=== PATIENT | male | born 1970 | race Caucasian/White ===

== ENCOUNTER 2024-12-11 07:32 | Inpatient (IN) | payer OTHER, SELFPAY ==
--- OUTSIDE RECORDS SUMMARY | 2024-12-09 17:40 | XMS_ITS | Encounter Summary ---
Author Organization [facility] Address [address] [place] [address] [place] [phone] Phone Care Team Providers Care Customer Service Driver Name Role Phone Tr Shah MD Primary Care Provider [phone] Reason for Visit * Reason Comments Abdominal Pain Pt presents for eval of bladder discomfort at night while laying down and reports cloudy urine during this time, denies daytime symptoms, reports hx of diverticulitis and thinks pain may be related. Dysuria TW notes patient to have nonchalant demeanor and to be nondescript in reporting current symptoms and history. Pt asked TW if provider would just give an antibiotic for this, TW advised pt that he would need to give urine sample for testing and to speak more with the provider before the course of treatment could be determined. Encounter Details Date Type Department Care Team (Late st Contact Info) Description 12/09/2024 5:40 PM EDT Office Visit [facility] at [address] [address] Bri Baires, GRADUATION COACH [address] [place] [phone] Dysuria (Primary Dx) Social History Tobacco Use Types Packs/Day Years Used Date Smoking Tobacco: Former Cigarettes Q uit: 1996 Smokeless Tobacco: Never Alcohol Use Standard Drinks/Week Comments Yes 10 (1 standard drink = 0.6 oz pu re alcohol) 1-2 drinks of tequila per day Education Answer Date Recorded Are you interested in more education? Not on aster e 08/10/2022 Are you concerned about learning? Not on file 08/10/2022 No 08/10/2022 No 08/10/2022 Digital Access Answer Date Recorded No 09/08/2022 No 09/08/2022 Reliable internet access at home? Not on file 09/08/2022 Device with a working camera? 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 Subjective: Patient ID: Jasen Calhoun is a 54 y.o. male. 54-year-old male patient presents with bilateral lower abdominal discomfort for the last 4 days that he notes only in the evening when lying flat. Patient states if he gets up at night to void his urine is very cloudy, dark and has a strong odor. Patient also notes in the evening there is some dysuria. He notes when he is voiding during the day, there is no dysuria and urine is a normal yellow color.. Patient denies any back pain or nauseousness or vomiting. No history of renal calculi. No history of colitis. Patient does have history of diverticulitis first episode approximately 10 years agotreated with outpatient antibiotics, second episode in 2021 when patient had abscess and required IV antibiotics. At that time patient also stated he was told there was a fistula but the surgeon did not want to operate because they were worried about nerve damage. No history of abdominal surgeries.patient states for the last 4 nights he has been awakening with a sweat but denies any fever or chills. Patient denies any dizziness or syncope. Review of Systems Constitutional: Positive for diaphoresis. Negative for appetite change, chills, fatigue and fever. Respiratory: Negative for cough and shortness of breath. Cardiovascular: Negative for chest pain. Gastrointestinal: Positive for abdominal pain. Negative for blood in stool, constipation, heartburn, nausea and vomiting. Genitourinary: Positive for dysuria (at night) and nocturia (cloudy). Negative for discharge, frequency, blood in urine, penile pain, scrotal swelling and testicular pain. Allergic/Immunologic: Negative for immunocompromised state. Neurological: Negative for dizziness and syncope. Psychiatric/Behavioral: Negative for confusion and decreased concentration. Skin: Negative for persistent rash. Musculoskeletal: Negative for back pain. Vitals: 12/09/24 1743 BP: 138/89 Pulse: 80 Resp: 16 Temp: 36.4 ??C (97.6 ??F) TempSrc: Temporal SpO2: 98% Objective: Physical Exam Vitals and nursing note reviewed. Constitutional: General: He is not in acute distress. Appearance: He is well-developed. He is obese. He is not ill-appearing, toxic- appearing or diaphoretic. HENT: Head: Normocephalic and atraumatic. Cardiovascular: Rate and Rhythm: Normal rate and regular rhythm. Heart sounds: Normal heart sounds. Pulmonary: Effort: Pulmonary effort is normal. No respiratory distress. Breath sounds: Normal breath sounds. No stridor. No wheezing, rhonchi or rales. Abdominal: Comments: Patient deferred After provider examined urine and spoke with patient and recommended emergent ER evaluation patientstated he needed to call his and did not want to stay in urgent care Skin: General: Skin is warm and dry. Neurological: General: No focal deficit present. Mental Status: He is alert and oriented to person, place, and time. Psychiatric: Mood and Affect: Mood normal. Behavior: Behavior normal. No results found for this visit on 12/09/24. Procedure: Procedures Assessment/Plan: Diagnosis Plan 1. 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 but surgeon would not operatebecause of fear of nerve damage Strongly encouraged patient to seek emergent follow-up care and patient strongly deferred stated heneeded to talk with his , provider offered to call and speak with her but patient adamantly deferred and refused Patient states he refuses to go to any local ER and will go to [facility] but he does not think he will go this evening unless his can convince him Spoke with patient regarding potential rapid change in status which could lead to pyelonephritis, sepsis -, colonic abscess, all of which can lead to complications up to permanent disability +/or . patient continues to defer physical evaluation and transfer. documented in this encounter Plan of Treatment Not on file documented as of this encounter Procedures Procedure Name Priority Date/Time Associated Diagnosis Comments URINE CULTURE Routine 12/09/2024 6:20 PM EDT Dysuria documented in this encounter Results * (ABNORMAL) Urine Culture (12/09/2024 6:20 PM EDT) Special Requests None 12/09/2024 6:20 PM EDT [facility] Urine Culture >100,000 colony forming units per mL ESCHERICHIA COLI(A) 12/11/2024 8:55 AM EDT [facility] Urine (Urine) 12/09/2024 6:2 0 PM EDT 12/09/2024 9:16 PM EDT Narrative Organism Antibiotic Method Susceptibility Escherichia coli Ampicillin LANDRY METHOD <=2: Susceptible Escherichia coli Ampicillin + Sulbactam LANDRY METHOD <=2: Susceptible Escherichia coli Cefepime LANDRY METHOD <=0.12: Susceptible Escherichia coli Ceftazidime LANDRY METHOD <=0.5: Susceptible Escherichia coli Ceftriaxone LANDRY METHOD <=0.25: Susceptible Escherichia coli Ciprofloxacin LANDRY METHOD 0.5: Intermediate Escherichia coli Extended Spectrum B-lactamase LANDRY MET HOD Negative Escherichia coli Gentamicin LANDRY METHOD <=1: Susceptible Escherichia coli Levofloxacin LANDRY METHOD 0.5: Susceptible Escherichia coli Piperacillin-tazobactam LANDRY METHOD <=4: Susceptible Escherichia coli Trimethoprim/sulfamethoxazole LANDRY MET HOD <=20: Susceptible Escherichia coli Cefazolin(urine) LANDRY METHOD <=1: Susceptible Comment: Bri Baires [facility] MICROBIOLOGY - GENERAL JESSY OSEGUERA Final Result [address] [address] documented in this encounter Visit Diagnoses Diagnosis Dysuria- Primary documented in this encounter Care Teams Customer Service Driver Relationship Specialty Start Date End Date Tr Shah MD [address] [place] [phone] [email or web address] PCP - General Family Medicine 12/09/24 documented as of this encounter Additional Source Comments The information contained in this document represents components of the legal health record. It is not the complete legal health record.[facility]
[2024-12-11] VITALS (9 sets, daily range): BP systolic 101–129; BP diastolic 55–86; PULSE 54–80; RESP 14–18; TEMP 36–36.9; O2SAT 95–99; BMI 28.2; BMI 26.0
--- NOTE | ~2024-12-11 | CT_ITS ---
PROCEDURE: CT-GUIDED DRAINAGE, PERITONEAL ABSCESS CLINICAL INFORMATION: pt with diverticular abscess COMPARISON: None available. TECHNIQUE: Following explaining procedure, benefits and risk, a written consent was obtained for procedure and conscious sedation. Patient was placed supine and preliminary CT imaging was obtained. Lead markers were placed along the lower anterior wall and repeat imaging was performed. An optimal marker was selected and placed on the skin. Marked site was cleaned and draped in usual sterile manner with 2% chlorhexidine solution. 1% lidocaine with a disc puncture site. There is a small 5 [place] Yueh catheter was advanced from the skin but seems to be a complex mass/abscess in the lower anterior abdominal wall. After placing Yueh catheter a thin guidewire was advanced and the catheter removed and a 10 [place] APD catheter was left in place. Apparently the bladder appears is a complex mass with fluid collection likely fistulous connection to the abscess simulating bladder abscess or mass. The pigtail catheter was left in place and anchored to the skin with 3-0 nylon sutures. Patient targeted procedure extremely well. This CT examination was performed using dose optimization techniques as appropriate, variously including the following: *Automated exposure control *Adjustment of mA and/or kV according to patient size (this includes techniques or standardized protocols for targeted exams where dose is matched to indication/reason for exam; i.e. extremities or head) *Use of iterative reconstruction technique FINDINGS/ CT/CT drain peritoneum impression: On urinary CT imaging there is a small abscess collection on axial image 24/4 and a complex area inferior to the abscess, question second abscess versus complex mass or infection . A catheter was left in place in the second complex collection what appeared to be an abscess may be a complex bladder. Initial drainage revealed hemorrhagic fluid likely hemorrhagic urine. Electronically signed by: Chip Hopkins MD 12/15/2024 03:45 PM EDT
--- NOTE | ~2024-12-11 | CT_ITS ---
EXAMINATION: CT ABDOMEN PELVIS WITH IV CONTRAST HISTORY: hx of perf. divertic, rectovesical fistula? COMPARISON: There are no prior studies for available comparison. TECHNIQUE: CT scan of the abdomen and pelvis was performed following administration of 85 mL Omnipaque 350 using standard departmental protocol. Coronal and sagittal reformatted images were generated and reviewed. The patient received oral contrast material. This CT exam was performed with one or more of the following dose reduction techniques: automated exposure control, adjustment of the mA and/or kV according to patient size, use of iterative reconstruction technique. DLP: 79 mGy-cm FINDINGS: LOWER CHEST: The visualized lung bases are clear. There is no pleural effusion. CARDIOVASCULATURE: The heart is normal in size. There is no pericardial effusion. LIVER: The liver is normal in size and contour. There is a subcentimeter hypodensity at the dome of the liver which is too small to accurately characterize. The hepatic and portal veins are patent. GALLBLADDER / BILE DUCTS: The gallbladder is unremarkable. There is no intra or extrahepatic biliary ductal dilatation. SPLEEN: The spleen is normal in size. No focal splenic lesion is identified. PANCREAS: The pancreas is unremarkable in appearance. ADRENAL GLANDS: Within normal limits. KIDNEYS/RETROPERITONEUM: No renal calculi are identified. There is no hydronephrosis. No renal masses are identified. LYMPH NODES: No abdominal or pelvic lymphadenopathy. VASCULATURE: The abdominal aorta is normal in caliber. MESENTERY/PERITONEUM: No free fluid. No masses. There is no free intraperitoneal gas. STOMACH: The stomach is unremarkable. SMALL BOWEL: The small bowel is normal in caliber. COLON: There is diverticulosis of the descending and sigmoid colon. There is marked wall thickening of the sigmoid colon which is contiguous with a collection of gas and fluid extending toward the umbilicus. This measures 4.0 x 3.5 x 5.8 cm, consistent with an abscess. APPENDIX: Normal. URINARY BLADDER/PELVIC ORGANS: There is marked irregular wall thickening of the urinary bladder which also contains gas and high density material dependently, consistent with oral contrast. These findings are consistent with a fistula. The prostate is normal in size. BONES / SOFT TISSUES: No suspicious bony or soft tissue abnormalities. CT/CT abdomen pelvis w IV con IMPRESSION: 1. Marked wall thickening of the sigmoid colon and the urinary bladder. 4.0 x 3.5 x 5.8 cm abscess between the dome of the bladder and the sigmoid colon. While findings may be secondary to diverticulitis, neoplasm involving the urinary bladder or the colon is not excluded. 2. The urinary bladder contains gas and high density material, consistent with oral contrast material. 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 Electronically signed by: Fredy Chávez MD 12/11/2024 12:22 PM EDT
[2024-12-11 07:59] LABS: MANUAL DIFF FLAG NO
--- NOTE | 2024-12-11 08:00 | PC.NURSE ---
Patient is a 54 yo male who presents from a local UC after providing a urine spec and being informed to be seen at a local ED. 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 Also c/o some urinary symptoms. Patient alert and oriented. Lungs clear bilat. Respirations even and non-labored. Abdomen soft with positive bowel sounds. c/o suprapubic pain. Positive pedal pulses with no edema. Last time evaluated for similar complaints was in 2021.
[2024-12-11 08:04] LABS: Hematocrit 42.1 % (42.0-52.0); Hemoglobin 15.0 g/dl (14.0-18.0); Imm Gran Abs Auto 0.03 X10*3/uL (0.00-0.03); Imm Gran Pct Auto 0.3 % (0.0-0.4); Lymphocytes Absolute Auto 1.6 X10*3/uL (1.2-4.9); Mean Corpuscular HGB Conc 35.6 g/dl (31.0-36.0); Mean Corpuscular Hemoglobin 32.8 pg (27.0-33.0); Mean Corpuscular Volume 91.9 fL (80.0-98.0); NRBC Abs Auto 0.000 X10*3/uL (0.0-0.012); NRBC Pct Auto 0.0 /100WBC (0.0-0.2); Platelet Count 431 X10*3/uL (160-400); Red Blood Count 4.58 X10*6/uL (4.60-5.80); White Blood Count 8.7 X10*3/uL (4.8-10.8)
--- NOTE | 2024-12-11 08:11 | ED_ITS ---
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 Urgent care told patient in the morning to come into the ER when he went there. Related Data Allergies Allergy/AdvReac Type Severity Reaction Status Date / Time No Known Allergies Allergy Verified 12/11/24 07:40 Review of Systems Constitutional: Reports as per [facility] Social History Social History Smoked in Last 30 Days: No Use of substances other than those prescribed or required for medical reasons: No Advance Directives: Yes Advance Directives Information Provided: Yes Advance Directives on File: No Physical Exam ED Vital Signs: Vital Signs - 24 hr 12/11/24 07:35 12/11/24 07:42 12/11/24 08:31 Temperature 97.9 F 97.7 F Pulse Rate 80 77 59 Respiratory Rate 16 18 18 Blood Pressure 128/76 129/86 107/64 Pulse Oximetry 97 95 95 Oxygen Delivery Method Room Air Room Air Room Air 12/11/24 10:15 12/11/24 12:00 Temperature Pulse Rate 56 62 Respiratory Rate 16 16 Blood Pressure 114/55 L 124/79 Pulse Oximetry 98 98 Oxygen Delivery Method Room Air Room Air BMI result Body Mass Index 28.2 Const Other: * Gen: ?Overall well-appearing patient * HEENT: PERRLA, EOMI, MMM, * Neck: Supple, no LAD * CV: RRR, no obvious murmurs appreciated * Resp: ?No wheezing rales rhonchi no stridor moving air well * Abd: ?Bowel sounds are present, left lower quadrant and suprapubic tenderness no rebound no rigidity * MSK: FROM, strength 5/5 all extremities * Skin: Warm, dry, intact, * Neuro: ?Alert and oriented x3, moving upper and lower extremities symmetrically, no obvious facial asymmetry noted Medical Decision Making Medical Decision Making MDM Narrative: Considerations for workup as below, we will need imaging, we will add on oral contrast for further elucidation, may need to be admitted and surgical consult anticipated as well. But this is going to be based on his workup. Differential Diagnosis Differential Diagnoses: The differential diagnosis associated with the presentation includes (Diverticulitis, diverticulitis with perforation, rectal vesicular fistula, appendicitis, cystitis, renal colic, pyelonephritis) Admission/Observation Consideration of admission/observation: Escalation of care including admission/observation considered 2022 Emergency Medicine Coding Guide from [employer] on 12/11/2024 All calculations should be rechecked by clinician prior to use RESULT SUMMARY: 5 Estimated Level of Service Problems: High (5) Risk: High (5) Data: Moderate (4) NARRATIVE MDM: This patient's problem complexity is High as patient: may have an acute or chronic illness/injury posing a threat to life or body function. This patient's risk is High due to: overall presentation requiring evaluation for a potentially High-risk process. This patient's data complexity is Moderate due to: -multiple tests ordered INPUTS: Number and Complexity ?> 2 = 5: illness/injury w/life or body threat (b) Risk level ?> 4 = High Tests ordered ?> 2 = 2 Tests results reviewed (excluding labs) ?> 1 = 1 Prior external notes reviewed ?> 0 = 0 Assessment requiring and independent historian ?> 0 = No Independent interpretation of tests ?> 0 = No Discussed management/test interpretation w/external professional ?> 0 = No Lab Data [facility] Lab Attestation statement: I reviewed the patient's lab results. 12/11/24 07:55 12/11/24 07:55 Labs: Lab Results 12/11/24 12/11/24 Range/Units 07:55 09:16 WBC 8.7 (4.8-10.8) X10*3/uL RBC 4.58 L (4.60-5.80) X10*6/uL Hgb 15.0 (14.0-18.0) g/dl Hct 42.1 (42.0-52.0) % MCV 91.9 (80.0-98.0) fL MCH 32.8 (27.0-33.0) pg MCHC 35.6 (31.0-36.0) g/dl RDW 12.2 (11.0-16.0) % Plt Count 431 H (160-400) X10*3/uL MPV 10.0 (9.4-12.4) fL Immature Gran % (Auto) 0.3 (0.0-0.4) % Neut % (Auto) 72.3 (45-73) % Lymph % (Auto) 18.7 L (20-40) % Nelson % (Auto) 7.3 (2-11) % Eos % (Auto) 0.9 (0-4) % Baso % (Auto) 0.5 (0-2) % Lymph # (Auto) 1.6 (1.2-4.9) X10*3/uL Nelson # (Auto) 0.6 (0.1-1.2) X10*3/uL Eos # (Auto) 0.1 (0.0-0.4) X10*3/uL Baso # (Auto) 0.0 (0.0-0.2) X10*3/uL Abs Immat Gran (auto) 0.03 (0.00-0.03) X10*3/uL Absolute Neuts (auto) 6.3 (2.0-8.3) x10*3/uL Absolute Nucleated RBC 0.000 (0.0-0.012) X10*3/uL Nucleated RBC % (auto) 0.0 (0.0-0.2) /100WBC Sodium 139 (135-145) mmol/L Potassium 3.9 (3.3-5.1) mmol/L Chloride 104 (96-108) mmol/L Carbon Dioxide 21 L (22-29) mmol/L Anion Gap 18 (12-20) BUN 16 (9-16) mg/dL Creatinine 0.87 (0.5-1.4) mg/dL Estim Creat Clear Calc 129.5 Estimated GFR > 60 Random Glucose 96 (60-115) mg/dL Calcium 10.1 (8.4-10.2) mg/dL Total Bilirubin 0.6 (0.0-1.0) mg/dL AST 26 (5-37) U/L ALT 22 (0-40) U/L Alkaline Phosphatase 70 (39-117) U/L Total Protein 8.0 (6.5-8.0) g/dL Albumin 4.1 (3.5-5.0) g/dL Urine Color DK YELLOW Urine Appearance Turbid Urine pH 7.0 (5.0-9.0) Ur Specific [place] 1.025 (1.005-1.025) Urine Protein 300 (3+) H (Neg-Trace) mg/dL Urine Glucose (UA) 100 H (Negative) mg/dL Urine Ketones 40 (Negative) mg/dL Urine Blood Moderate (2+) H (Negative) Urine Nitrite Positive H (Negative) Ur Leukocyte Esterase Large (3+) H (Negative) Urine RBC 6-10 H (0-2) /HPF Urine WBC >50 H (0-5) /HPF Urine WBC Clumps Present Ur Squamous Epith Cells 0-2 (0-2) /HPF Calcium Oxalate Crystal Present Urine Bacteria 4+ (None Seen) Hyaline Casts 0-2 (0-2) /LPF Prescription Management I considered prescription management with: Pain Medication Medications Administered Discontinued Medications Generic Name Dose Route Start Last Admin Trade Name Freq PRN Reason Stop Dose Admin Ceftriaxone Sodium 2 gm 12/11/24 10:35 12/11/24 10:42 Ceftriaxone Sodium 2 Gm Vial IVPUSH 12/11/24 10:36 2 gm ONCE ONE Administration Diatrizoate Meglum/Diatrizoate Sod 30 ml 12/11/24 12:01 12/11/24 12:01 Diatrizoate Meglumine, Sodium 30 Ml Solution PO 12/11/24 12:02 30 ml ONCE ONE Administration Sodium Chloride 1,000 mls @ 999 mls/hr 12/11/24 08:15 12/11/24 09:45 Ns IV 12/11/24 09:15 Infused .Q1H1M KAI Infusion Iohexol 100 ml 12/11/24 12:02 12/11/24 12:02 Iohexol 350 Mg/Ml 100 Ml Infus..Btl IV 12/11/24 12:03 85 ml ONCE ONE Administration Critical Care Time Critical Care Time Critical Care Time: Yes Total Critical Care Time: 35 Attestation: Time is exclusive of separately billable procedures. Time includes: direct patient care, patient reassessment, coordination of patient care, interpretation of data (laboratory data, pulse oximetry, arterial blood gases and chest xrays), review of patient's medical records, medical consultation and documentation of patient care. Procedures excluded from critical care time: central intravenous line placement and electrocardiography. Discharge Plan Discharge Clinical Impression: Diverticulitis large intestine Patient Disposition: Admitted As Inpatient Print Language: Thai
[2024-12-11 08:15] LABS: Alanine Aminotransferase 22 U/L (0-40); Albumin Level 4.1 g/dL (3.5-5.0); Alkaline Phosphatase 70 U/L (39-117); Anion Gap 18 (12-20); Aspartate Amino Transferase 26 U/L (5-37); Blood Urea Nitrogen 16 mg/dL (9-16); Calcium 10.1 mg/dL (8.4-10.2); Carbon Dioxide 21 mmol/L (22-29); Chloride 104 mmol/L (96-108); Creatinine Clr Calc Pharmacy 129.5; Estimated Glomerular Filt Rate > 60; Potassium 3.9 mmol/L (3.3-5.1); Sodium 139 mmol/L (135-145); Total Protein 8.0 g/dL (6.5-8.0)
--- OUTSIDE RECORDS SUMMARY | 2024-12-11 09:06 | XMS_ITS | Encounter Summary ---
Author Organization [facility] Address [address] [place] [phone] Phone Care Team Providers Care Crop Research Scientist Name Role Phone Tr Shah MD Primary Care Provider [phone] Tr Shah MD Primary Care Provider [phone] Encounter Details Date Type Department Care Team (Late st Contact Info) Description 07/29/2017 Procedure Pass [facility], Ct Scan - [address] [address] Social History Tobacco Use Types Packs/Day Years Used Date Smoking Tobacco: Never Assessed Sex and Gender Information Value Date Recorded Sex Assigned at Male 02/13/2022 8:24 AM EDT Legal Sex Male 9:37 PM EDT Gender Identity Male 02/13/2022 8:24 AM EDT Sexual Orientation Not on file documented as of this encounter Plan of Treatment Not on file documented as of this encounter Visit Diagnoses Not on filedocumented in this encounter Care Teams Crop Research Scientist Relationship Specialty Start Date End Date Tr Shah MD [email or web address] PCP - General Family Medicine 02/13/22 12/08/24 Tr Shah MD [address] [place] [phone] [email or web address] PCP - General Family Medicine 12/09/24 documented as of this encounter Additional Source Comments The information contained in this document represents components of the legal health record. It is not the complete legal health record.[facility]
--- OUTSIDE RECORDS SUMMARY | 2024-12-11 09:06 | XMS_ITS | Encounter Summary ---
Author Organization [facility] Address [address] [place] [address] [place] [phone] Phone Care Team Providers Care Patent Solicitor Name Role Phone Tr Shah MD Primary Care Provider [phone] Tr Shah MD Primary Care Provider [phone] Encounter Details Date Type Department Care Team (Late st Contact Info) Description 02/13/2022 Procedure Pass [facility], Ct Scan - [facility] [address] [place] [address] Social History Tobacco Use Types Packs/Day Years Used Date Smoking Tobacco: Former Cigarettes Q uit: 1996 Smokeless Tobacco: Never Alcohol Use Standard Drinks/Week Comments Yes 10 (1 standard drink = 0.6 oz pu re alcohol) 1-2 drinks of tequila per day Sex and Gender Information Value Date Recorded Sex Assigned at Male 02/13/2022 8:24 AM EDT Legal Sex Male 9:37 PM EDT Gender Identity Male 02/13/2022 8:24 AM EDT Sexual Orientation Not on file 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 Wish to be (Past 1 Month) No 022 8:23 AM EDT Macy Verduzco RN 2. Non-Specific Active Suici magda Thoughts (Past 1 Month) No 02/13/2022 8:23 AM EDT Landen Verduzco RN 6. Suicidal Behavior (Lifetime) No 8:23 AM EDT Macy Verduzco RN documented as of this encounter Plan of Treatment Not on file documented as of this encounter Visit Diagnoses Not on filedocumented in this encounter Care Teams Patent Solicitor Relationship Specialty Start Date End Date Tr Shah MD [email or web address] PCP - General Family Medicine 02/13/22 12/08/24 Tr Shah MD [address] [place] [phone] [email or web address] PCP - General Family Medicine 12/09/24 documented as of this encounter Additional Source Comments The information contained in this document represents components of the legal health record. It is not the complete legal health record.[facility]
--- OUTSIDE RECORDS SUMMARY | 2024-12-11 09:06 | XMS_ITS | Encounter Summary ---
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 Not on file documented as of this encounter Functional Status * Calculated C-SSRS Risk Score (Lifetime/Recent) Answer Date of Assessment Author No Risk Indicated 02/13/2022 8:23 AM EDT Macy Verduzco RN * [place] Suicide Severity Rating Scale (Screener/Recent Self-Report) Question [...] on filedocumented in this encounter Care Teams Machine Maintenance Relationship Specialty Start Date End Date Tr Shah MD [email or web address] PCP - General Family Medicine 02/13/22 12/08/24 Tr Shah MD [address] [place] [phone] [email or web address] PCP - General Family Medicine 12/09/24 documented as of this encounter Additional Source Comments The information contained in this document represents components of the legal health record. It is not the complete legal health record.[facility]
--- OUTSIDE RECORDS SUMMARY | 2024-12-11 09:07 | XMS_ITS | Encounter Summary ---
Author Organization [facility] Address [address] [place] [address] Phone Care Team Providers Care Scrap Burner Name Role Phone Tr Shah MD Primary Care Provider [phone] Tr Shah MD Primary Care Provider [phone] Encounter Details Date Type Department Care Team (Late st Contact Info) Description 07/29/2017 Ancillary Orders Virtual Department [address] [place] [address] Jasen Chavez MD [address] [place] [phone] [email or web address] Urinary tract infection without hematuria, site unspecified Social History Tobacco Use Types Packs/Day Years Used Date Smoking Tobacco: Never Assessed Sex and Gender Information Value Date Recorded Sex Assigned at Male 02/13/2022 8:24 AM EDT Legal Sex Male 9:37 PM EDT Gender Identity Male 02/13/2022 8:24 AM EDT Sexual Orientation Not on file documented as of this encounter Plan of Treatment Not on file documented as of this encounter Results * CT ABDOMEN/PELVIS WITH AND WITHOUT CONTRAST (07/31/2017 1:17 PM EDT) Anatomical Region Laterality Modality Abdomen, Pelvis Computed Tomogra phy 07/31/2017 1:19 PM EDT Impressions 07/31/2017 2:02 PM EDT Findings consistent with diverticular abscess between the sigmoid colon and upper left side of the bladder causing associated bladder thickening. Abscess measures up to 4.5 cm. Message regarding this study is sent to Dr. Chavez's service via the desktop support consultant on afternoon of dictation. TOTAL CTDIvol: 59.0 mGy POS - [id number] Edited by: Yazmin Jimenes on 07/31/2017 1:43 PM Narrative 07/31/2017 2:02 PM EDT HISTORY: Bacteriuria. UTI. Abnormal ultrasound. COMPARISON: Unenhanced CT June 14, 2010. TECHNIQUE: Water is used as an oral contrast agent. Pre-contrast views are obtained from the kidneys through the inferior pubic rami. Intravenous contrast is then administered and scanning obtained at ninety seconds from the dome of the liver to the iliac crests. Delayed scanning is then obtained from above the kidneys through the inferior pubic rami during excretory phase. Automated exposure control utilized. FINDINGS: Lung bases: No findings of concern. Liver and spleen: Too small to characterize hypodensity in the dome of the liver is likely a cyst on a statistical basis. No clearly worrisome masses. Spleen unremarkable. Biliary tree/pancreas: No findings of concern. Adrenals and : No adrenal or renal finding of concern. No evidence of stones. Renal enhancement and excretion are symmetric. Ureters have normal course and caliber. There is mass effect on the bladder from a pericolonic diverticular abscess. There is wall thickening in the bladder. It does not appear to have completely eroded into the bladder but that is a risk. No bladder stones or other masses. Bowel: Stomach unremarkable. No evidence of small bowel obstruction. Appendix unremarkable. Terminal ileum unremarkable. No evidence of colitis. Extensive colonic diverticulosis including a large fairly hyperdense diverticulum along the mesenteric side of the sigmoid. Along the inferior margin of the same loop of the sigmoid there is a fluid collection with a small amount of air within. It has a partially organized wall and appears to cause adjacent bladder wall thickening. It is present between the wall of the sigmoid colon and the bladder and as noted above has mass effect on the bladder. The collection measures approximately 4.5 x 3.4 x 3.3 cm. There is some adjacent induration in soft tissues but this may be a healing process. There is risk that this could erode into the bladder at this location. Nodes: No adenopathy detected. Vascular: No findings of concern. Soft tissues: Inflammatory changes in the left side of the pelvis and small abscess as above. No other fluid collections or inflammatory changes. No bowel-containing hernias. Bones: Mild degenerative changes in the spine. No compression deformity or bony destructive lesions are identified. Procedure Note Jeane Briscoe MD - 07/31/2017 HISTORY: Bacteriuria. UTI. Abnormal ultrasound. COMPARISON: Unenhanced CT June 14, 2010. TECHNIQUE: Water is used as an oral contrast agent. Pre-contrast viewsare obtained from the kidneys through the inferior pubic rami.Intravenous contrast is then administered and scanning obtained at ninetyseconds from the dome of the liver to the iliac crests. Delayed scanningis then obtained from above the kidneys through the inferior pubic ramiduring excretory phase. Automated exposure control utilized. FINDINGS: Lung bases: No findings of concern. Liver and spleen: Too small to characterize hypodensity in the dome of theliver is likely a cyst on a statistical basis. No clearly worrisomemasses. Spleen unremarkable. Biliary tree/pancreas: No findings of concern. Adrenals and : No adrenal or renal finding of concern. No evidence ofstones. Renal enhancement and excretion are symmetric. Ureters havenormal course and caliber. There is mass effect on the bladder from apericolonic diverticular abscess. There is wall thickening in thebladder. It does not appear to have completely eroded into the bladderbut that is a risk. No bladder stones or other masses. Bowel: Stomach unremarkable. No evidence of small bowel obstruction.Appendix unremarkable. Terminal ileum unremarkable. No evidence ofcolitis. Extensive colonic diverticulosis including a large fairlyhyperdense diverticulum along the mesenteric side of the sigmoid. Alongthe inferior margin of the same loop of the sigmoid there is a fluidcollection with a small amount of air within. It has a partiallyorganized wall and appears to cause adjacent bladder wall thickening. Itis present between the wall of the sigmoid colon and the bladder and asnoted above has mass effect on the bladder. The collection measuresapproximately 4.5 x 3.4 x 3.3 cm. There is some adjacent induration insoft tissues but this may be a healing process. There is risk that thiscould erode into the bladder at this location. Nodes: No adenopathy detected. Vascular: No findings of concern. Soft tissues: Inflammatory changes in the left side of the pelvis andsmall abscess as above. No other fluid collections or inflammatorychanges. No bowel-containing hernias. Bones: Mild degenerative changes in the spine. No compression deformityor bony destructive lesions are identified. IMPRESSION: Findings consistent with diverticular abscess between the sigmoid colonand upper left side of the bladder causing associated bladder thickening.Abscess measures up to 4.5 cm. Message regarding this study is sent toDr. Chavez's service via the desktop support consultant on afternoon of dictation. TOTAL CTDIvol: 59.0 mGy POS - [id number] Edited by: Yazmin Jimenes on 07/31/2017 1:43 PM Jasen Chavez MD IMG CT ABD/PELVIS Final Result documented in this encounter Visit Diagnoses Diagnosis Urinary tract infection without hematuria, site unspecified Urinary tract infection without hematuria, site unspecified documented in this encounter Care Teams Scrap Burner Relationship Specialty Start Date End Date Tr Shah MD [email or web address] PCP - General Family Medicine 02/13/22 12/08/24 Tr Shah MD [address] [place] [phone] [email or web address] PCP - General Family Medicine 12/09/24 documented as of this encounter Additional Source Comments The information contained in this document represents components of the legal health record. It is not the complete legal health record.[facility]
--- OUTSIDE RECORDS SUMMARY | 2024-12-11 09:07 | XMS_ITS | Clinical Summary ---
Author Organization [facility] Address [address] [place] [address] [place] [address] Phone Care Team Providers Care E Marketing Specialist Name Role Phone Tr Shah MD Primary Care Provider [phone] Allergies No known active allergies Medications lisinopril (PRINIVIL,ZEST RIL) 20 MG tablet Take 20 mg by mouth daily. 2 Active tadalafiL (CIALIS, ADCIRCA) 20 MG tablet TAKE 1/4 TO 1/2 BY MOUTH 1 HOUR PRIOR TO SEXUAL INTERCOURSE NEEDED 2 12/10/19 25 Discontin ued(No longer taking) Active Problems Problem Noted Date Diagnosed Date Abscess of sigmoid colon due to diverticulitis 1 04/15/2021 Assessment & Plan (02/14/2022 3:43 PM EDT): -Patient has had right and left lower quadrant abdominal pain for 2 days prior to admission -CT abdomen/pelvis shows acute complicated sigmoid diverticulitis. There is a 2.8 cm fluid collection between the sigmoid colon and the left upper bladder likely reflects a diverticular abscess, with adjacent circumferential wall thickening of the urinary bladder. Underlying colovesical fistula cannot be excluded -Patient has been seen by urology, recommendation for surgical evaluation of colovesicular fistula needs to be repaired. Patient seen by general surgery and recommendation for IR for abscess drainage -ED discussed case with IR and for now IV antibiotics recommended with repeat CT on -continue IV Zosyn -Follow-up blood cultures -Management with IV morphine -02/14 patient's pain has improved, he is requesting trial of CLD this evening. Then, will be NPO again at midnight pending possible intervention based on CT results HTN (hypertension) 02/13/2022 Assessment & Plan (02/13/2022 6:05 PM EDT): -Patient is on lisinopril which is currently on hold while his blood pressure is on the lower side with slightly elevated creatinine Alcohol use 02/13/2022 Assessment & Plan (02/13/2022 6:07 PM EDT): -Patient reports drinking about 1 or 2 drinks of tequila daily -Monitor with [facility], no signs of withdrawal currently Encounters Date Type Department Care Team Description 12/09/2024 5:40 PM EDT Office Visit [facility] [address] [address] Bri Baires CNP Dysuria (Primary Dx) from Last 3 Months Immunizations Immunization Administration Dates Next Due Influenza, Unspecified Formulation 04/30/2012 Tdap 10/09/2018,07/09/2008 Family History Medical History Relation Comments Diabetes type II Father Diverticulitis Father Relation Status Comments Brother Alive Father Mother Alive Social History Tobacco Use Types Packs/Day Years [...] 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 Not on f ile Not on file Last Filed Vital Signs Vital Sign Reading Time Taken Comments Blood Pressure 138/89 12/09/2024 5:43 PM EDT Pulse 80 12/09/2024 5:43 PM EDT Temperature 36.4 C (97.6 F) 12/09/2024 5:43 PM EDT Respiratory Rate 16 12/09/2024 5:43 PM EDT Oxygen Saturation 98% 12/09/2024 5:43 PM EDT Inhaled Oxygen Concentration - - Weight 127 kg (280 lb) 03/23/2022 11:36 AM EST w ith shoes Height 185.4 cm (6' 0.99 ) 03/23/2022 11:[address] Body Mass Index 36.95 03/23/2022 11:36 AM EST Plan of Treatment Health Maintenance Due Date Last Done Comments LIPID PANEL 1968 DEPRESSION SCREENING 1980 HEPATITIS C SCREENING 1986 HIV ONE-TIME SCREENING (18-6 5 YEARS) 1986 COLOGUARD 2013 COLONOSCOPY 2013 COLORECTAL CANCER SCREENING 2013 FIT TEST 2013 FOBT 2013 SIGMOIDOSCOPY 2013 VIRTUAL COLONOSCOPY 2013 PNEUMOCOCCAL VACCINES (50+ years) (1 of 1 - PCV) 2018 ZOSTER VACCINES (1 of 2) 2018 CREATININE LEVEL 02/15/2023 02/15/2022, 02/14/2022, 02/13/2022 POTASSIUM LEVEL 02/15/2023 02/15/2022, 02/14/2022, 02/13/2022 COVID-19 VACCINE (1 - 2023-2 5 season) 2023 INFLUENZA VACCINE (#1) 2024 04/30/2012 SCREENING FOR DIABETES 02/15/2025 02/15/2022 BLOOD PRESSURE 06/11/2025 12/09/2024 SMOKING Hx and SMOKELESS TOBACCO SCREENING 12/09/2025 12/09/2024 Adult Td,Tdap Booster 10/09/2028 10/09/2018 , 07/09/2008 HEPATITIS A VACCINES Aged Out No long er eligible based on patient's age to complete this topic HIB VACCINES Aged Out No longer eligi ble based on patient's age to complete this topic MENINGOCOCCAL VACCINES (ACWY) Aged Out No longer eligible based on patient's age to complete this topic MENINGOCOCCAL VACCINES (B) Aged Out N o longer eligible based on patient's age to complete this topic Medical Devices Not on file Procedures Procedure Name Priority Date/Time Associated Diagnosis Comments URINE CULTURE Routine 12/09/2024 6:20 PM EDT Dysuria COMPREHENSIVE METABOLIC PANEL Routine 02/15/2022 5:31 AM EDT from Last 3 Months or Most Recently Relevant to Health Maintenance Results * (ABNORMAL) Urine Culture (12/09/2024 6:20 PM EDT) Special Requests None 12/09/2024 6:20 PM EDT [facility] Urine Culture >100,000 colony forming units per mL ESCHERICHIA COLI(A) 12/11/2024 8:55 AM EDT [facility] Urine (Urine) 12/09/2024 6:2 0 PM [...] LANDRY METHOD <=1: Susceptible Comment: Bri Baires REFERRAL COORDINATOR MICROBIOLOGY - GENERAL ORDE ANA ROSA Final Result [facility] [address] [place] [address] * (ABNORMAL) Comprehensive metabolic panel (02/15/2022 5:31 AM EDT) SODIUM 139 133 - 146 mmol/L [facility] POTASSIUM 4.4 3.3 - 5.1 mmol/L [facility] CHLORIDE 102 96 - 108 mmol/L [facility] CO2 25 21 - 35 mmol/L [facility] BUN 17 6 - 19 mg/dL [facility] CREATININE 0.90 0.5 - 1.5 mg/dL [facility] GLUCOSE 95 70 - 99 mg/dL [facility] ALBUMIN 3.5(L) 3.9 - 4.8 g/dL [facility] TOTAL PROTEIN 7.2 6.5 - 8.0 g/dL [facility] CALCIUM 9.1 8.4 - 10.3 mg/dL [facility] ALKALINE PHOSPHATASE 60 39 - 117 U/L [facility] TOTAL BILIRUBIN 0.5 0.0 - 1.2 mg/dL [facility] AST 33 0 - 37 U/L [facility] ALT 39 0 - 40 U/L [facility] GLOBULIN 3.7 1 - 4.8 g/dL [facility] EGFR 102 >59 mL/min/1.7 3m2 [facility] Comment:Estimated glomerular filtration rate calculated using the CKD-EPI refit equation. ANION GAP 16 10 - 20 mmol/L [facility] Blood 02/15/2022 5:31 AM EDT 02/15/2022 5:48 AM EDT Rayne Kirkland DO, MPH LAB BLOOD ORDER SHAUN Final Result [facility] [address] [place] [address] from Last 3 Months or Most Recently Relevant to Health Maintenance Insurance [facility] POS [employer] PPO [facility] [place] [address] [place] [address] HMO [place] [address] [place] [address] [place] [address] [place] [address] H[place] [facility] Advance Directives For more information, please contact: [phone] (9AM - 5PM [place], Saturday-Saturday) * Full Code (Latest Code Status on File) Date Activated Date Inactivated Comments 02/13/2022 5:49 PM Question Answer Comments Code Status Confirmed With: Patient Care Teams E Marketing Specialist Relationship Specialty Start Date End Date Tr Shah MD [address] [place] [phone] [email or web address] PCP - General Family Medicine 12/09/24 Additional Source Comments The information contained in this document represents components of the legal health record. It is not the complete legal health record.[facility]
--- OUTSIDE RECORDS SUMMARY | 2024-12-11 09:07 | XMS_ITS | Encounter Summary ---
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 It is not the complete legal health record.[facility]
[2024-12-11 09:35] LABS: Appearance Urine Turbid; Glucose Urine UA 100 mg/dL (Negative); PH 7.0 (5.0-9.0); Specific Gravity - Urine 1.025 (1.005-1.025); UMIC TRIGGER UACC YES
[2024-12-11 10:03] LABS: UACC Culture Trigger YES
[2024-12-11] MEDS: iohexoL 350 MG/ML 100 ML INFUS..BTL IV (12:02)
--- NOTE | 2024-12-11 12:34 | PC.NURSE ---
CT shows: Marked wall thickening of the sigmoid colon and the urinary bladder. 4.0 x 3.5 x 5.8 cm abscess between the dome of the bladder and the sigmoid colon. While findings may be secondary to diverticulitis, neoplasm involving the urinary bladder or the colon is not excluded. The urinary bladder contains gas and high density material, consistent with oral contrast material. 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
--- NOTE | 2024-12-11 13:50 | PHA.MEDREC ---
Addendum entered by Aida Cho RPh 12/11/24 13:51: reviewed by [facility]. Original Note: Pharmacy Consult ? Medication Reconciliation Pharmacy has completed the medication reconciliation. Spoke to patient to confirm med list.
--- NOTE | 2024-12-11 14:45 | MHC.EDTECH ---
pt independently transferred to hospital bed, call balderas within reach
[2024-12-11] MEDS: Lactated Ringers 1,000 ML 100 ML IVCONT (16:54)
--- NOTE | 2024-12-11 17:58 | P.HPGS_ITS ---
History of Present Illness History of Present Illness Date of Service: 12/13/24 Chief complaint: abdo pain Narrative: Jasen Calhoun is a 54 year old male who is admitted today to the ER complaining of abdominal discomfort and changes in his urine. He says that his urine has been smelling like feces and it has been cloudy and there are changes in the color that are suspicious. He does not describe true dysuria but he says that he seems to be urinating more frequently. His urinalysis shows significant contamination and CT scan of his abdomen and pelvis show descending and sigmoid diverticulitis with most likely fistula to the bladder as well as a intra abdominal loculated abscess. The patient has known diverticulitis in his had several episodes in the past. He said 1 of the 1st episodes was over 10 years ago and at that time he was getting a colonoscopy but they were unable to go all around his colon Secondary to the anatomy. He said he has had several episodes of diverticulitis the last 1 being in 2021 and he did well with getting admitted and being treated with IV antibiotics and then being discharged home with ciprofloxacin. He says now on and off over the last several weeks he has been having little bit more discomfort and feels like he is waking up and going to the bathroom more and his urine is discolored with some odor. He does describe having pneumaturia. He denies any significant fevers or chills. He has been having a decreased sense of appetite as he feels that if he eats too heavy then the discomfort in his abdomen is worse. He denies any nausea or vomiting. He denies any bright red blood per rectum or melena. Review of Systems Review of Systems: Yes all other systems are reviewed and are negative [facility] Past Medical History Medical History (Updated 12/12/24 @ 03:17 by Fantasma Toro RN) No known health problems Surgical History Surgical History (Updated 12/12/24 @ 03:17 by Fantasma Toro RN) No history of previous surgery Social History Social History Household Members: Spouse Housing: House Do you presently have visiting nurse or other home services: No Patient Tobacco Use Status: Former Tobacco user Smoked in Last 30 Days: No e-Cigarette/Vaping Use: Never Used Use of substances other than those prescribed or required for medical reasons: No Currently Displaying Signs/Symptoms of Drug Intoxication Withdrawal: No Have you been hit, kicked, punched, or otherwise hurt by someone within the past year? If so, by whom?: No Do you feel safe in your current relationship?: No Is there a partner from a previous relationship who is making you feel unsafe now?: No Are you made to feel afraid or neglected: No Advance Directives: Yes Advance Directives Information Provided: Yes Advance Directives on File: No Advance Directives Date on File: 12/11/24 Do you have a plan to hurt others: No Plan Recently lost weight without trying: No Nutrition Risks: No Nutritional Risk Poor oral hygiene: No service: No Meds Allergies Allergy/AdvReac Type Severity Reaction Status Date / Time No Known Allergies Allergy Verified 12/11/24 07:40 Active Medications: Current Medications Acetaminophen (Acetaminophen 325 Mg Tablet) 650 mg PO Q6H PRN PRN Reason: Pain, Mild 1-3,fever,headache Lactated Ringer's (Lr) 1,000 mls @ 100 mls/hr IVCONT .Q10H [facility] Last Admin: 12/11/24 16:54 Dose: 100 mls/hr Piperacillin Sod/Tazobactam (Sod 3.375 gm/ Sodium Chloride) 50 mls @ 100 mls/hr IV RQ6H [facility] Last Admin: 12/11/24 17:50 Dose: 100 mls/hr Ketorolac Tromethamine (Ketorolac Tromethamine 15 Mg/Ml Vial) 15 mg IVPUSH RQ6H [facility] Last Admin: 12/11/24 17:50 Dose: 15 mg Melatonin (Melatonin 3 Mg Tablet) 6 mg PO BEDTIME PRN PRN Reason: Insomnia Ondansetron HCl (Ondansetron Hcl 4 Mg/2 Ml Vial) 4 mg IVPUSH RQ6H PRN PRN Reason: Nausea and Vomiting Sodium Chloride (0.9 % Sodium Chloride Flush 3 Ml Syringe) 3 ml IVFLUSH QSHIFT [facility] Last Admin: 12/11/24 16:54 Dose: Not Given Home Medications ?Medication ?Instructions ?Recorded ?Confirmed ?Last Taken ?Type Lactobacillus rhamnosus GG 10 1 cap PO DAILY 12/11/24 12/11/24 12/10/24 History billion cell capsule (Culturelle) ascorbic acid (vitamin C) 500 mg 500 mg PO DAILY 12/1112/11/24 12/10/24 History tablet (Vitamin C) ibuprofen 200 mg tablet 200 - 800 mg PO Q6H PRN Pain 12/11/24 12/11/24 Unknown History Physical Exam Vital Signs: Vital Signs: Last Vital Signs Temp 98.4 F 12/11/24 16:31 Pulse 58 12/11/24 16:31 Resp 18 12/11/24 16:31 BP 104/63 12/11/24 16:31 Pulse Ox 99 12/11/24 16:31 O2 Del Method Room Air 12/11/24 16:31 BMI result Body Mass Index 28.2 Const: General: cooperative, healthy appearing, comfortable and no acute distress Orientation/consciousness: patient oriented x3 Resp: Effort & Inspection: normal respiratory effort Auscultation: clear to auscultation bilaterally Cardio: Rate: regular rate Rhythm: regular rhythm GI: Other: Abdomen is soft nondistended little bit of some mild discomfort with palpation in the left lower quadrant and suprapubic area but no guarding no rebound no peritoneal signs no skin changes of erythema Skin: Other: Nonicteric Neuro: General: patient oriented x3 Cranial nerves: Yes CN's II-XII intact bilaterally Extrem: General: Yes normal to inspection Psych: Appearance: grossly normal Mental Status: mental status grossly normal Speech and movement: Normal speech and movement present Affect: normal affect Attitude: cooperative Thought process: Normal thought process present Thought content: Normal thought content present Insight: Good insight present (Psych) Judgement: Good judgement present (Psych) Results Results Labs: Short CBC 12/11/24 Range/Units 07:55 WBC 8.7 (4.8-10.8) X10*3/uL Hgb 15.0 (14.0-18.0) g/dl Hct 42.1 (42.0-52.0) % Plt Count 431 H (160-400) X10*3/uL BMP 12/11/24 07:55 Sodium 139 Potassium 3.9 Chloride 104 Carbon Dioxide 21 L BUN 16 Creatinine 0.87 Calcium 10.1 Liver Function 12/11/24 Range/Units 07:55 Total Bilirubin 0.6 (0.0-1.0) mg/dL AST 26 (5-37) U/L ALT 22 (0-40) U/L Alkaline Phosphatase 70 (39-117) U/L Albumin 4.1 (3.5-5.0) g/dL Urine 12/11/24 Range/Units 09:16 Urine Color DK YELLOW Urine Appearance Turbid Urine pH 7.0 (5.0-9.0) Ur Specific [place] 1.025 (1.005-1.025) Urine Protein 300 (3+) H (Neg-Trace) mg/dL Urine Glucose (UA) 100 H (Negative) mg/dL Abdomen CT scan report/results: report reviewed and image reviewed CT scan - pelvis: report reviewed and image reviewed Additional studies: [address] [place] [address] CT Scan Report Signed Patient: Jasen Calhoun MR#: [id number] : 1970 Acct:[id number] Age/Sex: 54 / M ADM Date: 12/11/24 Loc: .ED Attending Dr: Ordering Physician: Otis Puente DO Date of Service: 12/11/24 Procedure(s): CT abdomen pelvis w IV con Accession Number(s): [id number] cc: Mady Meza EARTH SCIENCE TECHNICIAN; Otis Puente DO~ Report Number: [id number]: Total DLP = 789.00 mGy-cm EXAMINATION: CT ABDOMEN PELVIS WITH IV CONTRAST HISTORY: hx of perf. divertic, rectovesical fistula? COMPARISON: There are no prior studies for available comparison. TECHNIQUE: CT scan of the abdomen and pelvis was performed following administration of 85 mL Omnipaque 350 using standard departmental protocol. Coronal and sagittal reformatted images were generated and reviewed. The patient received oral contrast material. This CT exam was performed with one or more of the following dose reduction techniques: automated exposure control, adjustment of the mA and/or kV according to patient size, use of iterative reconstruction technique. DLP: 79 mGy-cm FINDINGS: LOWER CHEST: The visualized lung bases are clear. There is no pleural effusion. CARDIOVASCULATURE: The heart is normal in size. There is no pericardial effusion. LIVER: The liver is normal in size and contour. There is a subcentimeter hypodensity at the dome of the liver which is too small to accurately characterize. The hepatic and portal veins are patent. GALLBLADDER / BILE DUCTS: The gallbladder is unremarkable. There is no intra or extrahepatic biliary ductal dilatation. SPLEEN: The spleen is normal in size. No focal splenic lesion is identified. PANCREAS: The pancreas is unremarkable in appearance. ADRENAL GLANDS: Within normal limits. KIDNEYS/RETROPERITONEUM: No renal calculi are identified. There is no hydronephrosis. No renal masses are identified. LYMPH NODES: No abdominal or pelvic lymphadenopathy. VASCULATURE: The abdominal aorta is normal in caliber. MESENTERY/PERITONEUM: No free fluid. No masses. There is no free intraperitoneal gas. STOMACH: The stomach is unremarkable. SMALL BOWEL: The small bowel is normal in caliber. COLON: There is diverticulosis of the descending and sigmoid colon. There is marked wall thickening of the sigmoid colon which is contiguous with a collection of gas and fluid extending toward the umbilicus. This measures 4.0 x 3.5 x 5.8 cm, consistent with an abscess. APPENDIX: Normal. URINARY BLADDER/PELVIC ORGANS: There is marked irregular wall thickening of the urinary bladder which also contains gas and high density material dependently, consistent with oral contrast. These findings are consistent with a fistula. The prostate is normal in size. BONES / SOFT TISSUES: No suspicious bony or soft tissue abnormalities. CT/CT abdomen pelvis w IV con IMPRESSION: 1. Marked wall thickening of the sigmoid colon and the urinary bladder. 4.0 x 3.5 x 5.8 cm abscess between the dome of the bladder and the sigmoid colon. While findings may be secondary to diverticulitis, neoplasm involving the urinary bladder or the colon is not excluded. 2. The urinary bladder contains gas and high density material, consistent with oral contrast material. 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 Pathologies most likely secondary to diverticulitis as he has had several flare-ups on and off throughout the years. Unfortunately were unable to have Interventional capabilities today to do drainage of the abscess but it seems contained and plan will be to admit and treat with IV Zosyn. May eventually switch over to p.o. antibiotics and get a CT scan to see how much of the abscess was able to resolve and if there is still significant abscess then consider CT-guided drainage. In the meantime we will get Urology consult to plan for cystoscopy to evaluate the bladder with biopsies to rule out any malignancy. Once again most likely this is just secondary to the diverticular disease. Patient said that in the past the attempt of colonoscopy was not successful in looking at the torque on the sigmoid colon it may not be successful. May consider imaging to evaluate the rest of the colon to rule out any pathology. It would be great to eventually electively plan bowel prep and some degree of left-sided colectomy with disruption and then repair of the fistula to the bladder. This could be tagged deemed with Urology. This does not need to be done during this admission and as the patient is stable we have time. The goal for this weekend is to admit and IV antibiotics for treatment of this abscess. We will advance his diet and see how he does. Extensive discussion was had with the patient in his and they both understand and agree with the above plan. Quality Stroke Does the patient have a stroke diagnosis?: No VTE Prior VTE?: No VTE Risk Level:: Surgical - low VTE Device Contraindication: N/A - Device Ordered VTE Drug Contraindication: Treatment Not Indicated Procedures Date of Service Date of Service: 12/13/24
[2024-12-12 03:14] VITALS: BP 110/66; PULSE 52; RESP 18; TEMP 36.3; O2SAT 96
[2024-12-12] MEDS: Lactated Ringers 1,000 ML 100 ML IVCONT ×2 (03:16→12:28)
[2024-12-12 08:01] VITALS: BP 118/70; PULSE 53; RESP 18; TEMP 36.3; O2SAT 96
[2024-12-12 16:00] VITALS: BP 133/83; PULSE 55; RESP 16; TEMP 36.6; O2SAT 96
--- NOTE | 2024-12-12 16:38 | MHC.CM.PN ---
Addendum entered by Carol Carrillo 12/13/24 09:25: PT REPORTS THERE IS A COPY OF HIS HCP AT HIS PCP OFFICE, [facility]. Original Note: PT REPORTS HE LIVES WITH HIS AND IS INDEPENDENT WITH CARE HE DENIES USE OF DME OR SERVICES COPY OF HCP REQUESTED, HE REPORTS HIS IS HIS AGENT PCP: MARIS DELCID DCP: HOME VIA PRIVATE TRANSPORT
--- NOTE | 2024-12-12 16:43 | P.PNGS_ITS ---
Subjective Subjective Date of Service: 12/12/24 Interval history: Patient is doing well no issues afebrile says lower abdomen feels a little bit better. He is hungry Physical Exam 2 Vital Signs: Vital Signs: Last Vital Signs Temp 97.8 F 12/12/24 16:00 Pulse 55 12/12/24 16:00 Resp 16 12/12/24 16:00 BP 133/83 12/12/24 16:00 Pulse Ox 96 12/12/24 16:00 O2 Del Method Room Air 12/12/24 16:00 BMI result Body Mass Index 26.0 Const: General: cooperative, healthy appearing, comfortable and no acute distress GI: Other: Abdomen is soft nondistended nontender no rebound no peritoneal signs Objective Data Active Medications Acetaminophen (Acetaminophen 325 Mg Tablet) 650 mg PO Q6H PRN PRN Reason: Pain, Mild 1-3,fever,headache Lactated Ringer's (Lr) 1,000 mls @ 100 mls/hr IVCONT .Q10H [facility] Last Admin: 12/12/24 12:28 Dose: 100 mls/hr Documented By: ANNE MARIE Piperacillin Sod/Tazobactam (Sod 3.375 gm/ Sodium Chloride) 50 mls @ 100 mls/hr IV RQ6H [facility] Last Infusion: 12/12/24 13:13 Dose: Infused Documented By: ANNE MARIE Ketorolac Tromethamine (Ketorolac Tromethamine 15 Mg/Ml Vial) 15 mg IVPUSH RQ6H [facility] Last Admin: 12/12/24 11:52 Dose: 15 mg Documented By: ANNE MARIE Melatonin (Melatonin 3 Mg Tablet) 6 mg PO BEDTIME PRN PRN Reason: Insomnia Ondansetron HCl (Ondansetron Hcl 4 Mg/2 Ml Vial) 4 mg IVPUSH RQ6H PRN PRN Reason: Nausea and Vomiting Sodium Chloride (0.9 % Sodium Chloride Flush 3 Ml Syringe) 3 ml IVFLUSH QSHIFT [facility] Last Admin: 12/12/24 00:47 Dose: Not Given Documented By: ADRIANA Non-Admin Reason: IV Running Labs 12/11/24 07:55 12/11/24 07:55 Microbiology Microbiology Results: Microbiology 12/11/24 Unknown Urine Culture - Preliminary Urine clean catch - Clean Catch Midstream Culture in progress. Procedures Date of Service Date of Service: 12/12/24 Progress Note: A&P Assessment and plan (1) [place]-vesical fistula: Status: Acute Plan 54-year-old male with diverticulitis of the sigmoid colon and colovesicular fistula and intra-abdominal abscess. The intra-abdominal abscess seems pretty walled-off in his doing okay. Unfortunately could not get this drained yesterday and in the meantime we will have him stay here in the hospital getting IV antibiotics. Clinically heal with looked good but is looking maybe a little bit better. Plan to continue with the IV antibiotics and advance his diet to clears and see how he does with that. We will get Urology consultation to determine what their opinion is on doing a cystoscopy and biopsies I had a time Time Spent With Patient Time: Total time managing care of this patient today ____ minutes. Quality Stroke Does the patient have a stroke diagnosis?: No VTE Prior VTE?: No VTE Risk Level:: Surgical - low VTE Device Contraindication: N/A - Device Ordered VTE Drug Contraindication: Treatment Not Indicated
[2024-12-12 20:00] VITALS: BP 128/73; PULSE 55; RESP 18; TEMP 36.4; O2SAT 95
[2024-12-13] MEDS: Lactated Ringers 1,000 ML 100 ML IVCONT ×2 (00:04→08:29)
[2024-12-13 03:59] VITALS: BP 117/67; PULSE 50; RESP 18; TEMP 36.7; O2SAT 95
[2024-12-13 06:59] VITALS: BP 113/70; PULSE 54; RESP 16; TEMP 36.8; O2SAT 96
[2024-12-13 16:00] VITALS: BP 107/70; PULSE 61; RESP 18; TEMP 36.8; O2SAT 94
--- NOTE | 2024-12-13 16:39 | PM.PNGS ---
Subjective Subjective Date of Service: 12/13/24 Interval history: pt feeling even better than yesterday no pain . hungry wants to try solid food, no fever no discomfort when urinating, urine looks marble cleaner Physical Exam Vital Signs: Vital Signs: Last Vital Signs Temp 98.3 F 12/13/24 06:59 Pulse 54 12/13/24 06:59 Resp 16 12/13/24 06:59 BP 113/70 12/13/24 06:59 Pulse Ox 96 12/13/24 06:59 O2 Del Method Room Air 12/13/24 06:59 BMI result Body Mass Index 26.0 Const: General: cooperative, healthy appearing and comfortable GI: Other: abdomen and suprapubic area soft nontender nondistended Objective Data Active Medications Acetaminophen (Acetaminophen 325 Mg Tablet) 650 mg PO Q6H PRN PRN Reason: Pain, Mild 1-3,fever,headache Piperacillin Sod/Tazobactam (Sod 3.375 gm/ Sodium Chloride) 50 mls @ 100 mls/hr IV RQ6H [facility] Last Infusion: 12/13/24 12:34 Dose: Infused Documented By: ANNE MARIE Ketorolac Tromethamine (Ketorolac Tromethamine 15 Mg/Ml Vial) 15 mg IVPUSH RQ6H [facility] Last Admin: 12/13/24 11:56 Dose: 15 mg Documented By: ANNE MARIE Lorazepam (Lorazepam 1 Mg Tablet) 1 mg PO BEDTIME PRN PRN Reason: sleep Last Admin: 12/12/24 23:27 Dose: 1 mg Documented By: HARLEY Melatonin (Melatonin 3 Mg Tablet) 6 mg PO BEDTIME PRN PRN Reason: Insomnia Ondansetron HCl (Ondansetron Hcl 4 Mg/2 Ml Vial) 4 mg IVPUSH RQ6H PRN PRN Reason: Nausea and Vomiting Sodium Chloride (0.9 % Sodium Chloride Flush 3 Ml Syringe) [facility] Admin: 12/13/24 15:01 Dose: Not Given Documented By: ANNE MARIE Non-Admin Reason: IV Running Labs 12/11/24 07:55 12/11/24 07:55 Microbiology Microbiology Results: Microbiology 12/11/24 Unknown Urine Culture - Final Urine clean catch - Clean Catch Midstream Procedures Date of Service Date of Service: 12/13/24 Progress Note: A&P Assessment and plan (1) [place]-vesical fistula: Status: Acute Plan 54 year old male with diverticulitis and colovesicular fistula, stable, and intraperitoneal abscess also stable. Plan to advance diet to low residue as tolerating po liquids. Then will heplock ivf and cont with iv zosyn. Will have urology see him tomorrow. Hope is to keep until saturday and rescan to look at the intrabdo abscess -- if better then dc home on po antibiotics 3 weeks and if worse then will need drainage and cultures and iv antibitocs Cont with iv antibiotics as recommended by GI Will see urology recommendations on Saturday ? hope to try to get Cscope on pt before getting surgery to do sig resection, takedowna dn repair of colovesicula fistula. He understands and agrees with the above plan Time Spent With Patient Time: Total time managing care of this patient today ____ minutes. Quality Stroke Does the patient have a stroke diagnosis?: No VTE Prior VTE?: No VTE Risk Level:: Surgical - low VTE Device Contraindication: N/A - Device Ordered VTE Drug Contraindication: Treatment Not Indicated
--- NOTE | 2024-12-13 19:10 | P.CNUR_ITS ---
History of Present Illness Consult details Consult date: 12/14/24 Narrative: Jasen is a 54 year old male who presented to the ER complaining of abdominal discomfort and changes in his urine. c/o's of dysuria, fecaluria. CT scan of his abdomen and pelvis show descending and sigmoid diverticulitis with most likely fistula to the bladder as well as a intra abdominal loculated abscess. The patient has known diverticulitis in his had several episodes in the past. The patient has been on IV abx therapy. He will need cystoscopy. Review of Systems 2 Review of Systems: Yes all other systems are reviewed and are negative Constitutional: Constitutional: Reports no additional constitutional complaints Eyes: Eyes: Reports no additional eye complaints ENT: Reports system reviewed and no additional complaints, except as documented Cardiovascular: Cardiovascular: Reports no additional cardiovascular complaints Respiratory: Respiratory: Reports no additional respiratory complaints Gastrointestinal: Gastrointestinal: Reports no additional gastrointestinal complaints Genitourinary: Genitourinary: Reports as per HPI Musculoskeletal: Musculoskeletal: Reports no additional musculoskeletal complaints Integumentary/Breasts: Skin/Breast: Reports system reviewed and no additional complaints, except as docu Neurologic: Reports system reviewed and no additional complaints, except as documented Psychiatric: Psychiatric: Reports no additional psychiatric complaints Endocrine: Endocrine: Reports no additional endocrine complaints Hematologic/Lymphatic: Hematologic/Lymphatic: Reports no additional hematologic/lymphatic complaints Allergic/Immunologic: Allergic/Immunologic: Reports no additional allergic/immunologic complaints PMF Past Medical History Medical History No known health problems Surgical History Surgical History No history of previous surgery Social History Social History Household Members: Spouse Housing: House Do you presently have visiting nurse or other home services: No Patient Tobacco Use Status: Former Tobacco user Smoked in Last 30 Days: No e-Cigarette/Vaping Use: Never Used Use of substances other than those prescribed or required for medical reasons: No Currently Displaying Signs/Symptoms of Drug Intoxication Withdrawal: No Have you been hit, kicked, punched, or otherwise hurt by someone within the past year? If so, by whom?: No Do you feel safe in your current relationship?: No Is there a partner from a previous relationship who is making you feel unsafe now?: No Are you made to feel afraid or neglected: No Advance Directives: Yes Advance Directives Information Provided: Yes Advance Directives on File: No Advance Directives Date on File: 12/11/24 Do you have a plan to hurt others: No Plan Recently lost weight without trying: No Nutrition Risks: No Nutritional Risk Poor oral hygiene: No service: No Meds Allergies Allergy/AdvReac Type Severity Reaction Status Date / Time No Known Allergies Allergy Verified 12/11/24 07:40 Active Medications: Current Medications Acetaminophen (Acetaminophen 325 Mg Tablet) 650 mg PO Q6H PRN PRN Reason: Pain, Mild 1-3,fever,headache Piperacillin Sod/Tazobactam (Sod 3.375 gm/ Sodium Chloride) 50 mls @ 100 mls/hr IV RQ6H [facility] Last Infusion: 12/13/24 18:10 Dose: Infused Ketorolac Tromethamine (Ketorolac Tromethamine 15 Mg/Ml Vial) 15 mg IVPUSH RQ6H [facility] Last Admin: 12/13/24 17:32 Dose: 15 mg Lorazepam (Lorazepam 1 Mg Tablet) 1 mg PO BEDTIME PRN PRN Reason: sleep Last Admin: 12/12/24 23:27 Dose: 1 mg Melatonin (Melatonin 3 Mg Tablet) 6 mg PO BEDTIME PRN PRN Reason: Insomnia Ondansetron HCl (Ondansetron Hcl 4 Mg/2 Ml Vial) 4 mg IVPUSH RQ6H PRN PRN Reason: Nausea and Vomiting Sodium Chloride (0.9 % Sodium Chloride Flush 3 Ml Syringe) [facility] Last Admin: 12/13/24 15:01 Dose: Not Given Home Medications ?Medication ?Instructions ?Recorded ?Confirmed ?Last Taken ?Type Lactobacillus rhamnosus GG 10 1 cap PO DAILY 12/11/24 12/11/24 12/10/24 History billion cell capsule (Culturelle) ascorbic acid (vitamin C) 500 mg 500 mg PO DAILY 12/1112/11/24 12/10/24 History tablet (Vitamin C) ibuprofen 200 mg tablet 200 - 800 mg PO Q6H PRN Pain 12/11/24 12/11/24 Unknown History Physical Exam 2 Vital Signs: Vital Signs: Last Vital Signs Temp 98.2 F 12/13/24 16:00 Pulse 61 12/13/24 16:00 Resp 18 12/13/24 16:00 BP 107/70 12/13/24 16:00 Pulse Ox 94 12/13/24 16:00 O2 Del Method Room Air 12/13/24 16:00 BMI result Body Mass Index 26.0 Const: General: healthy appearing, no acute distress and well developed O rientation/consciousness: patient oriented x3 HEENT: Head: Yes normocephalic and Yes atraumatic Eyes: Conjunctivae: conjunctivae normal Neck: Neck: Yes normal visual inspection Chest: Chest palpation & inspection: normal inspection of the chest Resp: Effort & Inspection: normal respiratory effort GI: Inspection: Yes normal to inspection Palpation (GI): Soft to palpation Neuro: General: patient oriented x3 Psych: Appearance: grossly normal Affect: normal affect Results Labs 12/11/24 07:55 12/11/24 07:55 Labs: Urine 12/11/24 Range/Units 09:16 Urine Color DK YELLOW Urine Appearance Turbid Urine pH 7.0 (5.0-9.0) Ur Specific [place] 1.025 (1.005-1.025) Urine Protein 300 (3+) H (Neg-Trace) mg/dL Urine Glucose (UA) 100 H (Negative) mg/dL Imaging Additional studies: Date of Service: 12/11/24 EXAMINATION: CT ABDOMEN PELVIS WITH IV CONTRAST HISTORY: hx of perf. divertic, rectovesical fistula? COMPARISON: There are no prior studies for available comparison. TECHNIQUE: CT scan of the abdomen and pelvis was performed following administration of 85 mL Omnipaque 350 using standard departmental protocol. Coronal and sagittal reformatted images were generated and reviewed. The patient received oral contrast material. This CT exam was performed with one or more of the following dose reduction techniques: automated exposure control, adjustment of the mA and/or kV according to patient size, use of iterative reconstruction technique. DLP: 79 mGy-cm FINDINGS: LOWER CHEST: The visualized lung bases are clear. There is no pleural effusion. CARDIOVASCULATURE: The heart is normal in size. There is no pericardial effusion. LIVER: The liver is normal in size and contour. There is a subcentimeter hypodensity at the dome of the liver which is too small to accurately characterize. The hepatic and portal veins are patent. GALLBLADDER / BILE DUCTS: The gallbladder is unremarkable. There is no intra or extrahepatic biliary ductal dilatation. SPLEEN: The spleen is normal in size. No focal splenic lesion is identified. PANCREAS: The pancreas is unremarkable in appearance. ADRENAL GLANDS: Within normal limits. KIDNEYS/RETROPERITONEUM: No renal calculi are identified. There is no hydronephrosis. No renal masses are identified. LYMPH NODES: No abdominal or pelvic lymphadenopathy. VASCULATURE: The abdominal aorta is normal in caliber. MESENTERY/PERITONEUM: No free fluid. No masses. There is no free intraperitoneal gas. STOMACH: The stomach is unremarkable. SMALL BOWEL: The small bowel is normal in caliber. COLON: There is diverticulosis of the descending and sigmoid colon. There is marked wall thickening of the sigmoid colon which is contiguous with a collection of gas and fluid extending toward the umbilicus. This measures 4.0 x 3.5 x 5.8 cm, consistent with an abscess. APPENDIX: Normal. URINARY BLADDER/PELVIC ORGANS: There is marked irregular wall thickening of the urinary bladder which also contains gas and high density material dependently, consistent with oral contrast. These findings are consistent with a fistula. The prostate is normal in size. BONES / SOFT TISSUES: No suspicious bony or soft tissue abnormalities. IMPRESSION: 1. Marked wall thickening of the sigmoid colon and the urinary bladder. 4.0 x 3.5 x 5.8 cm abscess between the dome of the bladder and the sigmoid colon. While findings may be secondary to diverticulitis, neoplasm involving the urinary bladder or the colon is not excluded. 2. The urinary bladder contains gas and high density material, consistent with oral contrast material. 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 Assessment and Plan (1) [place]-vesical fistula: Status: Acute Plan Will add on for Cystoscopy bladder biopsy in the OR on Saturday NPO after Saturday Procedures Date of Service Date of Service: 12/14/24
[2024-12-13 20:00] VITALS: BP 109/73; PULSE 62; RESP 18; TEMP 36.4; O2SAT 97
[2024-12-13] MEDS: 0.9 % Sodium Chloride Flush 3 ML SYRINGE IVFLUSH (20:44)
[2024-12-14 03:48] VITALS: BP 111/67; PULSE 54; RESP 18; TEMP 36.3; O2SAT 94
[2024-12-14 08:00] VITALS: BP 131/78; PULSE 54; RESP 18; TEMP 36.3; O2SAT 94
[2024-12-14] MEDS: 0.9 % Sodium Chloride Flush 3 ML SYRINGE IVFLUSH ×3 (08:28→22:28)
--- NOTE | 2024-12-14 10:37 | PM.PNGS ---
Subjective Subjective Date of Service: 12/14/24 Interval history: Patient looks good feeling well no issues tolerating solid diet Physical Exam Vital Signs: Vital Signs: Last Vital Signs Temp 97.3 F 12/14/24 08:00 Pulse 54 12/14/24 08:00 Resp 18 12/14/24 08:00 BP 131/78 12/14/24 08:00 Pulse Ox 94 12/14/24 08:00 O2 Del Method Room Air 12/14/24 08:00 BMI result Body Mass Index 26.0 Const: General: cooperative, healthy appearing, comfortable and no acute distress GI: Other: Abdomen is soft nondistended nontender Objective Data Active Medications Acetaminophen (Acetaminophen 325 Mg Tablet) 650 mg PO Q6H PRN PRN Reason: Pain, Mild 1-3,fever,headache Piperacillin Sod/Tazobactam (Sod 3.375 gm/ Sodium Chloride) 50 mls @ 100 mls/hr IV RQ6H [facility] Last Infusion: 12/14/24 06:08 Dose: Infused Documented By: JHON Ketorolac Tromethamine (Ketorolac Tromethamine 15 Mg/Ml Vial) 15 mg IVPUSH RQ6H [facility] Last Admin: 12/14/24 06:08 Dose: Not Given Documented By: JHON Non-Admin Reason: Patient Asleep Lorazepam (Lorazepam 1 Mg Tablet) 1 mg PO BEDTIME PRN PRN Reason: sleep Last Admin: 12/13/24 23:49 Dose: 1 mg Documented By: JHON Melatonin (Melatonin 3 Mg Tablet) 6 mg PO BEDTIME PRN PRN Reason: Insomnia Ondansetron HCl (Ondansetron Hcl 4 Mg/2 Ml Vial) 4 mg IVPUSH RQ6H PRN PRN Reason: Nausea and Vomiting Sodium Chloride (0.9 % Sodium Chloride Flush 3 Ml Syringe) 3 ml IVFLUSH QSHIFT [facility] Last Admin: 12/14/24 08:28 Dose: 3 ml Documented By: LEONORAIC Labs 12/11/24 07:55 12/11/24 07:55 Microbiology Microbiology Results: Microbiology 12/11/24 Unknown Urine Culture - Final Urine clean catch - Clean Catch Midstream Procedures Date of Service Date of Service: 12/14/24 Progress Note: A&P Assessment and plan (1) [place]-vesical fistula: Status: Acute Plan Patient doing well hemodynamically and clinically from diverticulitis with abscess and colovesicular fistula. He is continuing on IV Zosyn. We will plan on making him NPO tonight and then he will have a CT scan with evaluation to see if the abscesses shrunk down or if he may still need to have the interventional drainage of this abscess. Clinically he looks pretty good so I am hoping that it has resolved considerably. In addition he has been seen by Dr. Spence who is planning to put him on the add on scheduled for cystoscopy with biopsies later in the afternoon. If he does well after the hopefully he can be discharged home with p.o. antibiotics and then follow up on biopsy results and determine whether trying to do a colonoscopy would be helpful and then getting him set up for surgery. Coming in today the patient says that he would like to be followed by Dr. Serrano who he said he looked up and was asking if he can have his follow up care with him. We will discuss with Dr. Serrano.. Time Spent With Patient Time: Total time managing care of this patient today ____ minutes. Quality Stroke Does the patient have a stroke diagnosis?: No VTE Prior VTE?: No VTE Risk Level:: Surgical - low VTE Device Contraindication: N/A - Device Ordered VTE Drug Contraindication: Treatment Not Indicated
[2024-12-14 15:36] VITALS: BP 120/57; PULSE 54; RESP 18; TEMP 36.3; O2SAT 97
[2024-12-14 19:18] VITALS: BP 113/58; PULSE 65; RESP 18; TEMP 36.2; O2SAT 95
[2024-12-15] VITALS (17 sets, daily range): BP systolic 101–134; BP diastolic 60–95; PULSE 53–88; RESP 12–22; TEMP 36.1–36.5; O2SAT 95–100; BMI 33.2
--- NOTE | 2024-12-15 07:31 | P.PNGS_ITS ---
Subjective Subjective Date of Service: 12/15/24 <Ady Monaco PA-C - Last Filed: 12/15/24 10:38> 12/17/24 <Rodney Serrano MD - Last Filed: 12/17/24 07:44> Interval history: feels improved today. States his pain is minimal, only pain to pressure over the bladder. He continues to have some urinary symptoms, notes his urine seemed to be more clear yesterday, but still cloudy. Passed a bowel movement yesterdya. Was tolerating diet. Is now NPO for possibe IR drainage <Ady Monaco PA-C - Last Filed: 12/15/24 10:38> Physical Exam 2 Vital Signs: Vital Signs: Last Vital Signs Temp 97.1 F 12/15/24 03:56 Pulse 53 12/15/24 03:56 Resp 18 12/15/24 03:56 BP 101/60 12/15/24 03:56 Pulse Ox 97 12/15/24 03:56 O2 Del Method Room Air 12/15/24 03:56 BMI result Body Mass Index 26.0 <Ady Monaco PA-C - Last Filed: 12/15/24 10:38> Const: General: comfortable and no acute distress <DENNY Partida Last Filed: 12/15/24 10:38> Orientation/consciousness: patient oriented x3 <Ady Monaco PA-C - Last Filed: 12/15/24 10:38> Resp: Effort & Inspection: normal respiratory effort and able to speak in complete sentences <Ady Monaco PA-C - Last Filed: 12/15/24 10:38> GI: Other: some deep induration above the <Ady Monaco PA-C - Last Filed: 12/15/24 10:38> Inspection: No distended <DENNY Partida Last Filed: 12/15/24 10:38> Palpation (GI): Soft to palpation, Tenderness to palpation present (GI) suprapubicly and no guarding <DENNY Partida Last Filed: 12/15/24 10:38> Neuro: General: patient oriented x3 <DENNY Partida Last Filed: 12/15/24 10:38> Objective Data Active Medications Acetaminophen (Acetaminophen 325 Mg Tablet) 650 mg PO Q6H PRN PRN Reason: Pain, Mild 1-3,fever,headache Ceftriaxone Sodium (Ceftriaxone Sodium 2 Gm Vial) 2 gm IVPUSH ONCE ONE Stop: 12/15/24 16:47 Piperacillin Sod/Tazobactam (Sod 3.375 gm/ Sodium Chloride) 50 mls @ 100 mls/hr IV RQ6H [facility] Last Infusion: 12/15/24 06:21 Dose: Infused Documented By: ANNETTE Ketorolac Tromethamine (Ketorolac Tromethamine 15 Mg/Ml Vial) 15 mg IVPUSH RQ6H [facility] Last Admin: 12/15/24 05:51 Dose: 15 mg Documented By: ANNETTE Lorazepam (Lorazepam 1 Mg Tablet) 1 mg PO BEDTIME PRN PRN Reason: sleep Last Admin: 12/14/24 22:27 Dose: 1 mg Documented By: ANNETTE Melatonin (Melatonin 3 Mg Tablet) 6 mg PO BEDTIME PRN PRN Reason: Insomnia Ondansetron HCl (Ondansetron Hcl 4 Mg/2 Ml Vial) 4 mg IVPUSH RQ6H PRN PRN Reason: Nausea and Vomiting Sodium Chloride (0.9 % Sodium Chloride Flush 3 Ml Syringe) [facility] Last Admin: 12/14/24 22:28 Dose: 3 ml Documented By: ANNETTE <Ady Monaco PA-C - Last Filed: 12/15/24 10:38> Labs CBC & Chem 7: 12/11/24 07:55 12/11/24 07:55 <Ady Monaco PA-C - Last Filed: 12/15/24 10:38> Procedures Date of Service Date of Service: 12/15/24 <Ady Monaco PA-C - Last Filed: 12/15/24 10:38> 12/17/24 <Rodney Serrano MD - Last Filed: 12/17/24 07:44> Progress Note: A&P Assessment and plan (1) [place]-vesical fistula: Status: Acute <Ady Monaco PA-C - Last Filed: 12/15/24 10:38> Assessment and Plan: Has minimal abdominal pain Looks well overall Says his urine has cleared Abdomen is soft, benign with very minimal tenderness on the suprapubic area Scheduled for cystoscopy today Re-evaluate CAT scan for possible IR drainage Continue IV antibiotics We will need sigmoid resection down the line We will review planned later on with the patient Seen and examined independently <Rodney Serrano MD - Last Filed: 12/17/24 07:44> (2) Diverticulitis large intestine: Status: Acute <Ady Monaco PA-C - Last Filed: 12/15/24 10:38> Assessment and Plan: 54 year old male admitted for diverticulitis with colovesical fistula, fluid collection. Overall doing well today. states his pain is improving. he was tolerating diet yesterday, also had a BM. Denies fevers, chills. He is currently NPO for IR drainage of fluid collection today. Will also have cysto with biopsy from urology today. Continue IV abx cystoscopy today. IR drain today okay to resume diet after procedures today. <Ady Monaco PA-C - Last Filed: 12/15/24 10:38> Time Spent With Patient Time: Total time managing care of this patient today ____ minutes. <Ady Monaco PA-C - Last Filed: 12/15/24 10:38> Quality Stroke Does the patient have a stroke diagnosis?: No <Ady Monaco PA-C - Last Filed: 12/15/24 10:38> VTE Prior VTE?: No <Ady Monaco PA-C - Last Filed: 12/15/24 10:38> VTE Risk Level:: Surgical - low <Ady Monaco PA-C - Last Filed: 12/15/24 10:38> VTE Device Contraindication: N/A - Device Ordered <Ady Monaco PA-C - Last Filed: 12/15/24 10:38> VTE Drug Contraindication: Treatment Not Indicated <Ady Monaco PA-C - Last Filed: 12/15/24 10:38>
[2024-12-15] MEDS: 0.9 % Sodium Chloride Flush 3 ML SYRINGE IVFLUSH ×3 (08:49→22:07)
--- NOTE | 2024-12-15 10:18 | P.CONAN_ITS ---
Documented by User: Crystal Leung NP 12/15/24 10:26 HPI - Anesthesia Eval Consult details Narrative: 54 yr old male for Cystoscopy & Bladder Biopsy No recent illness. No CP/SOB, climbs stairs, does yardwork. Last anesthesia was for colonoscopy about 10 yrs ago PMFSH Active Problems Active Problems: All Active Problems (Updated 12/12/24 @ 03:17 by Fantasma Toro RN) [place]-vesical fistula (Acute) Diverticulitis large intestine (Acute) Past Medical History Medical History (Updated 12/15/24 @ 13:41 by Kika Zee RN) Abdominopelvic abscess Dysuria History of diverticulosis Fistula No known health problems Family History Family history of problems with anesthesia: No Surgical History Surgical History (Updated 12/15/24 @ 13:41 by Kika Zee RN) Hx of colonoscopy No history of previous surgery History of Problems with Anesthesia: No Social History Social History Household Members: Spouse Housing: House Do you presently have visiting nurse or other home services: No Patient Tobacco Use Status: Former Tobacco user Smoked in Last 30 Days: No e-Cigarette/Vaping Use: Never Used Use of substances other than those prescribed or required for medical reasons: No Currently Displaying Signs/Symptoms of Drug Intoxication Withdrawal: No Have you been hit, kicked, punched, or otherwise hurt by someone within the past year? If so, by whom?: No Do you feel safe in your current relationship?: No Is there a partner from a previous relationship who is making you feel unsafe now?: No Are you made to feel afraid or neglected: No Are you DNR?: No Advance Directives: Yes Advance Directives Information Provided: Yes Advance Directives on File: No Advance Directives Date on File: 12/11/24 Do you have a plan to hurt others: No Plan Recently lost weight without trying: No Nutrition Risks: No Nutritional Risk Poor oral hygiene: No service: No Meds Allergies Allergy/AdvReac Type Severity Reaction Status Date / Time No Known Allergies Allergy Verified 12/11/24 07:40 Active Medications: Current Medications Acetaminophen (Acetaminophen 325 Mg Tablet) 650 mg PO Q6H PRN PRN Reason: Pain, Mild 1-3,fever,headache Ceftriaxone Sodium (Ceftriaxone Sodium 2 Gm Vial) 2 gm IVPUSH ONCE ONE Stop: 12/15/24 16:47 Piperacillin Sod/Tazobactam (Sod 3.375 gm/ Sodium Chloride) 50 mls @ 100 mls/hr IV RQ6H [facility] Last Infusion: 12/15/24 06:21 Dose: Infused Ketorolac Tromethamine (Ketorolac Tromethamine 15 Mg/Ml Vial) 15 mg IVPUSH RQ6H [facility] Last Admin: 12/15/24 05:51 Dose: 15 mg Lorazepam (Lorazepam 1 Mg Tablet) 1 mg PO BEDTIME PRN PRN Reason: sleep Last Admin: 12/14/24 22:27 Dose: 1 mg Melatonin (Melatonin 3 Mg Tablet) 6 mg PO BEDTIME PRN PRN Reason: Insomnia Ondansetron HCl (Ondansetron Hcl 4 Mg/2 Ml Vial) 4 mg IVPUSH RQ6H PRN PRN Reason: Nausea and Vomiting Sodium Chloride (0.9 % Sodium Chloride Flush 3 Ml Syringe) 3 ml IVFLUSH QSHIFT [facility] Last Admin: 12/15/24 08:49 Dose: 3 ml Home Medications ?Medication ?Instructions ?Recorded ?Confirmed ?Last Taken ?Type Lactobacillus rhamnosus GG 10 1 cap PO DAILY 12/11/24 12/11/24 12/10/24 History billion cell capsule (Culturelle) ascorbic acid (vitamin C) 500 mg 500 mg PO DAILY 12/1112/11/24 12/10/24 History tablet (Vitamin C) ibuprofen 200 mg tablet 200 - 800 mg PO Q6H PRN Pain 12/11/24 12/11/24 Unknown History Exam Height,Weight and Vital Signs: Height 6 ft 5 in Weight 99.4 kg Last Vital Signs Temp 97.7 F 12/15/24 07:37 Pulse 80 12/15/24 07:37 Resp 16 12/15/24 07:37 BP 125/76 12/15/24 07:37 Pulse Ox 97 12/15/24 07:37 O2 Del Method Room Air 12/15/24 07:37 Pertinent Lab Results Pertinent Lab Results: Laboratory Tests 12/11/24 12/11/24 07:55 09:16 WBC 8.7 RBC 4.58 L Hgb 15.0 Hct 42.1 MCV 91.9 MCH 32.8 MCHC 35.6 RDW 12.2 Plt Count 431 H MPV 10.0 Immature Gran % (Auto) 0.3 Neut % (Auto) 72.3 Lymph % (Auto) 18.7 L [place] % (Auto) 7.3 Eos % (Auto) 0.9 Baso % (Auto) 0.5 Lymph # (Auto) 1.6 [place] # (Auto) 0.6 Eos # (Auto) 0.1 Baso # (Auto) 0.0 Abs Immat Gran (auto) 0.03 Absolute Neuts (auto) 6.3 Absolute Nucleated RBC 0.000 Nucleated RBC % (auto) 0.0 Sodium 139 Potassium 3.9 Chloride 104 Carbon Dioxide 21 L Anion Gap 18 BUN 16 Creatinine 0.87 Estim Creat Clear Calc 129.5 Estimated GFR > 60 Random Glucose 96 Calcium 10.1 Total Bilirubin 0.6 AST 26 ALT 22 Alkaline Phosphatase 70 Total Protein 8.0 Albumin 4.1 Urine Color DK YELLOW Urine Appearance Turbid Urine pH 7.0 Ur Specific [place] 1.025 Urine Protein 300 (3+) H Urine Glucose (UA) 100 H Urine Ketones 40 Urine Blood Moderate (2+) H Urine Nitrite Positive H Ur Leukocyte Esterase Large (3+) H Urine RBC 6-10 H Urine WBC >50 H Urine WBC Clumps Present Ur Squamous Epith Cells 0-2 Calcium Oxalate Crystal Present Urine Bacteria 4+ Hyaline Casts 0-2 Airway Mallampati Class: I TM Dist: >3cm Neck ROM: Full Loose/Missing/Broken Teeth: No Heart: RRR Lungs: CTAB Assessment and Plan Final Anesthetic Review Family History of Problems with Anesthesia: No History of Problems with Anesthesia: No Documented by User: Brayden Julian MD 12/15/24 15:55 [facility] Past Medical History Medical History (Updated 12/15/24 @ 13:41 by Kika Zee RN) Abdominopelvic abscess Dysuria History of diverticulosis Fistula No known health problems Surgical History Surgical History (Updated 12/15/24 @ 13:41 by Kika Zee RN) Hx of colonoscopy No history of previous surgery Social History Social History Household Members: Spouse Housing: House Do you presently have visiting nurse or other home services: No Patient Tobacco Use Status: Former Tobacco user Smoked in Last 30 Days: No e-Cigarette/Vaping Use: Never Used Use of substances other than those prescribed or required for medical reasons: No Currently Displaying Signs/Symptoms of Drug Intoxication Withdrawal: No Have you been hit, kicked, punched, or otherwise hurt by someone within the past year? If so, by whom?: No Do you feel safe in your current relationship?: No Is there a partner from a previous relationship who is making you feel unsafe now?: No Are you made to feel afraid or neglected: No Are you DNR?: No Advance Directives: Yes Advance Directives Information Provided: Yes Advance Directives on File: No Advance Directives Date on File: 12/11/24 Do you have a plan to hurt others: No Plan Recently lost weight without trying: No Nutrition Risks: No Nutritional Risk Poor oral hygiene: No service: No Meds Allergies Allergy/AdvReac Type Severity Reaction Status Date / Time No Known Allergies Allergy Verified 12/11/24 07:40 Home Medications ?Medication ?Instructions ?Recorded ?Confirmed ?Last Taken ?Type Lactobacillus rhamnosus GG 10 1 cap PO DAILY 12/11/24 12/11/24 12/10/24 History billion cell capsule (Culturelle) ascorbic acid (vitamin C) 500 mg 500 mg PO DAILY 12/1112/11/24 12/10/24 History tablet (Vitamin C) ibuprofen 200 mg tablet 200 - 800 mg PO Q6H PRN Pain 12/11/24 12/11/24 Unknown History Assessment and Plan Assessment Anesthesia Assessment: Anesthesia Plan Discussed and Chart Reviewed Final Anesthetic Review NPO: Yes ASA Class: II Final Preanesthetic Review: No Changes in Pt Med Stat, Meds/Allgs Chart Reviewed, Consent Obtained/Reviewed and Anes Risks/Benef Reviewed Patient Risk: Low Procedure Risk: Low Anesthetic Plan Anesthetic Plan: GA Disposition: Standard PACU
--- NOTE | 2024-12-15 12:45 | PC.NURSE ---
12:45- Patient returned to unit from procedure with IGOR drain right mid/lower quadrant, dressing clean, dry and intact. Sanguineous drainage present. Suction maintained in IGOR drain.
--- NOTE | 2024-12-15 14:16 | PC.NURSE ---
Patient off unit for procedure
--- NOTE | 2024-12-15 14:37 | MHC.SHP ---
Pre-Procedural Eval Section A - 24 Hr Update-Section A only Date of Service: 12/15/24 The patient is an INPATIENT: Yes The patient has been examined within 24 hours of the surgical procedure. The History & Physical has been completed within 30 days and I have reviewed it.: Yes Section B - Complete if H&P > 30 days Chief Complaint: fecaluria, colovesical fistula Allergies: Allergies Allergy/AdvReac Type Severity Reaction Status Date / Time No Known Allergies Allergy Verified 12/11/24 07:40 Plan Diagnosis/Plan: Unchanged I have reviewed the history and physical and performed a pertinent physical examination on my patient. No changes have occurred unless specified. Cystoscopy. Bladder biopsy, fulguration. Discussed risks to include but not limited to, blood in the urine, burning with urination, urgency. Time Spent With Patient Time: Total time managing care of this patient today ____ minutes.
--- NOTE | 2024-12-15 16:04 | PM.EVENT ---
Event Note Date of Service: 12/16/24 Event Note: Patient is seen on afternoon rounds Had a drain placed into the suprapubic abscess by Dr. Hopkins earlier He had a cystoscopy with Dr. Spence showing that the catheter drain is in the bladder I had a long discussion with him and his Evelyn He has had multiple episodes of diverticulitis Over the years he has had fever and chills the past 2 weeks consistent with sepsis from his colo vesical fistula Plan to do hand assisted laparoscopic sigmoid resection, possible open, with stoma, bladder repair tomorrow I reviewed with him and his the technique of the planned procedure Explained the risks including but not limited to bleeding, infections, bowel injury, staple line leak, [place], strokes, as well as the benefits and alternatives He was given consent They both understand the above well He was says that she has been trying to convince him to see a surgeon for this diverticular disease for a couple of years now He will also need a colonoscopy down the line prior to reversal Above plan discussed with Dr. Spence as well Time Spent With Patient Time: Total time managing care of this patient today ____ minutes.
--- NOTE | 2024-12-15 16:07 | W.PM.OPN ---
Operative Note Operative Note Date of Service: 12/15/24 Narrative: PREOP DIAGNOSIS: Fecaluria, Colovesical fistula POSTOP DIAGNOSIS: Fecaluria, Colovesical fistula PROCEDURE: Cystoscopy bladderbiospies, fulguration SURGEON: Madai Rhodes MD ANESTHESIA: General Details of procedure: The patient was brought into the operating room placed on the OR table in supine position. 2 g of Ceftriaxone IV. General anesthesia was administered. The patient was repositioned into lithotomy position, prepped and draped in the usual sterile fashion. Time-out was done per protocol. A 22 fr cystoscope was placed transurethrally into the bladder. The bladder mucosa noted significant inflammatory changes. At the dome, the IGOR drain pigtail was noted in the bladder. Biopsies was done, right and left lateral wall. The resectoscope was passed the loop was used to biopsy the dome and the rollar ball attachment was used to fulgurate the biopsied area. The cystoscope was removed. 20 fr chicas to gravity drainage. Digital rectal exam under anesthesia- prostate smooth, not enlarged. The patient was brought out of anesthesia and taken to recovery in stable condition. Complications: None EBL: minimal (<5 mL) Drains:20 fr chicas
--- NOTE | 2024-12-15 16:31 | PC.NURSE ---
Patient returned to unit from procedure. IGOR drain remains in place with now yellow/clear drainage (IGOR drain came up emptied by OR). Patient arrived with chicas in place. Patient educated on fall risk, fall risk measure in place.
--- NOTE | 2024-12-15 21:00 | PC.NURSE ---
Toradol held prior to procedure today, This RN reached out to permastone applicator surgeon, Dr. Orantes about new pain meds for patient reporting pain at this time. Will continue to reassess.
[2024-12-15] MEDS: oxyCODONE HCl Immed Release 5 MG TABLET PO (23:49)
[2024-12-16] VITALS (9 sets, daily range): BP systolic 105–131; BP diastolic 60–82; PULSE 50–63; RESP 13–20; TEMP 36.1–36.8; O2SAT 90–99
[2024-12-16] MEDS: 0.9 % Sodium Chloride Flush 3 ML SYRINGE IVFLUSH ×3 (07:30→23:00)
--- NOTE | 2024-12-16 08:13 | HO.POSTANES ---
Post Anesthesia Evaluation Post Anesthesia Evaluation Date of Service: 12/16/24 Vital Signs: Vital Signs Temp Pulse Resp BP Pulse Ox O2 Del Method 12/16/24 07:38 97.1 F 50 18 111/70 96 Room Air 12/16/24 03:04 96.9 F 51 16 105/66 93 Room Air Anesthesia: General Mental Status: Awake Pain Control: Satisfactory Nausea/Vomiting: None Hydration: Adequate Anesthesia-Related Issues: No Anes. Related Issues
--- NOTE | 2024-12-16 11:03 | PM.PNGS ---
Subjective Subjective Date of Service: 12/16/24 <Ady Monaco PA-C - Last Filed: 12/16/24 12:31> 12/16/24 <Rodney Serrano MD - Last Filed: 12/16/24 16:40> Interval history: Doing okay today, still having some pain in the lower abdomen. Denies fever or chills <Ady Monaco PA-C - Last Filed: 12/16/24 12:31> Physical Exam Vital Signs: Vital Signs: Last Vital Signs Temp 97.1 F 12/16/24 07:38 Pulse 50 12/16/24 07:38 Resp 18 12/16/24 07:38 BP 111/70 12/16/24 07:38 Pulse Ox 96 12/16/24 07:38 O2 Del Method Room Air 12/16/24 07:38 O2 Flow Rate 2 12/15/24 16:00 BMI result Body Mass Index 33.2 <Ady Monaco PA-C - Last Filed: 12/16/24 12:31> GI: Other: karishma in place, straw yellow fluid scant blood, likely due to being in the bladder chicas in place <Ady Monaco PA-C - Last Filed: 12/16/24 12:31> Inspection: No distended <Ady Monaco PA-C - Last Filed: 12/16/24 12:31> Palpation (GI): Soft to palpation, Tenderness to palpation present (GI) suprapubicly and no guarding <Ady Monaco PA-C - Last Filed: 12/16/24 12:31> Objective Data Active Medications Acetaminophen (Acetaminophen 325 Mg Tablet) 650 mg PO Q6H PRN PRN Reason: Pain, Mild 1-3,fever,headache Hydromorphone HCl (Hydromorphone Hcl 0.5 Mg/0.5 Ml Syringe) 0.5 mg IVPUSH Q3H PRN; Protocol PRN Reason: Pain, Severe (Pain Scale 7-10) Last Admin: 12/15/24 22:07 Dose: 0.5 mg Documented By: ANNETTE Piperacillin Sod/Tazobactam (Sod 3.375 gm/ Sodium Chloride) 50 mls @ 100 mls/hr IV RQ6H [facility] Last Infusion: 12/16/24 06:13 Dose: Infused Documented By: ANNETTE Ketorolac Tromethamine (Ketorolac Tromethamine 15 Mg/Ml Vial) 15 mg IVPUSH RQ6H [facility] Last Admin: 12/16/24 05:38 Dose: Not Given Documented By: ANNETTE Non-Admin Reason: Physician Held Med Lorazepam (Lorazepam 1 Mg Tablet) 1 mg PO BEDTIME PRN PRN Reason: sleep Last Admin: 12/15/24 23:49 Dose: 1 mg Documented By: ANNETTE Melatonin (Melatonin 3 Mg Tablet) 6 mg PO BEDTIME PRN PRN Reason: Insomnia Ondansetron HCl (Ondansetron Hcl 4 Mg/2 Ml Vial) 4 mg IVPUSH RQ6H PRN PRN Reason: Nausea and Vomiting Oxycodone HCl (Oxycodone Hcl Immed Release 5 Mg Tablet) 5 mg PO Q6H PRN PRN Reason: Pain, Moderate(Pain Scale 4-6) Last Admin: 12/15/24 23:49 Dose: 5 mg Documented By: ANNETTE Sodium Chloride (0.9 % Sodium Chloride Flush 3 Ml Syringe) [facility] Last Admin: 12/16/24 07:30 Dose: 3 ml Documented By: LISSA <Ady Monaco PA-C - Last Filed: 12/16/24 12:31> Labs CBC & Chem 7: 12/11/24 07:55 12/11/24 07:55 <Ady Monaco PA-C - Last Filed: 12/16/24 12:31> Labs: Laboratory Results - last 24 hr 12/16/24 09:17 Blood Type A Positive Antibody Screen NEGATIVE <Ady Monaco PA-C - Last Filed: 12/16/24 12:31> Procedures Date of Service Date of Service: 12/16/24 <Ady Monaco PA-C - Last Filed: 12/16/24 12:31> 12/16/24 <Rodney Serrano MD - Last Filed: 12/16/24 16:40> Progress Note: A&P Assessment and plan (1) [place]-vesical fistula: Status: Acute <Ady Monaco PA-C - Last Filed: 12/16/24 12:31> Assessment and Plan: The plan was reviewed with the plan was reviewed with the patient and his Scheduled for and assisted laparoscopic sigmoid resection today with stoma Urology service aware of plan Urine appears turbid Seen and examined independently <Rodney Serrano MD - Last Filed: 12/16/24 16:40> (2) Diverticulitis large intestine: Status: Acute <Ady Monaco PA-C - Last Filed: 12/16/24 12:31> Assessment and Plan: 54 year old male admitted for diverticulitis with colovesical fistula, fluid collection. He is doing okay today, continues to have some mild pain in the lower abdomen. Had IR drainage of fluid collection yesterday with KARISHMA placement, cysto with biopsy from urology. During cystoscopy, the pigtail drain was located in the bladder. Output has been straw colored, with some scant blood, liekly urine due to being in the bladder. patient will be going to OR today for sigmoid resection and ostomy creation with repair of bladder. He has been NPO. Chicas will remain in place. Continue IV abx hand assisted laparoscopic sigmoid resection and ostomy creation NPO now, likely clear liquid diet after procedure Chicas will likely stay in for a few days after procedure for bladder rest. <Ady Monaco PA-C - Last Filed: 12/16/24 12:31> Time Spent With Patient Time: Total time managing care of this patient today ____ minutes. <Ady Monaco PA-C - Last Filed: 12/16/24 12:31> Quality Stroke Does the patient have a stroke diagnosis?: No <Ady Monaco PA-C - Last Filed: 12/16/24 12:31> VTE Prior VTE?: No <Ady Monaco PA-C - Last Filed: 12/16/24 12:31> VTE Risk Level:: Surgical - low <Ady Monaco PA-C - Last Filed: 12/16/24 12:31> VTE Device Contraindication: N/A - Device Ordered <Ady Monaco PA-C - Last Filed: 12/16/24 12:31> VTE Drug Contraindication: Treatment Not Indicated <Ady Monaco PA-C - Last Filed: 12/16/24 12:31>
--- NOTE | 2024-12-16 11:56 | HO.ANESPROP2 ---
HPI - Anesthesia Eval Consult details Narrative: 54 yo M presenting for Hand Assist Sigmoid Resection and Bladder Repair PMFSH Active Problems Active Problems: All Active Problems [place]-vesical fistula (Acute) Diverticulitis large intestine (Acute) Past Medical History Medical History (Updated 12/15/24 @ 13:41 by Kika Zee RN) Abdominopelvic abscess Dysuria History of diverticulosis Fistula No known health problems Family History Family history of problems with anesthesia: No Surgical History Surgical History (Updated 12/15/24 @ 13:41 by Kika Zee RN) Hx of colonoscopy No history of previous surgery History of Problems with Anesthesia: No Social History Social History Household Members: Spouse Housing: House Do you presently have visiting nurse or other home services: No Patient Tobacco Use Status: Former Tobacco user e-Cigarette/Vaping Use: Never Used Advance Directives Date on File: 12/11/24 service: No Meds Allergies Allergy/AdvReac Type Severity Reaction Status Date / Time No Known Allergies Allergy Verified 12/11/24 07:40 Active Medications: Current Medications Acetaminophen (Acetaminophen 325 Mg Tablet) 650 mg PO Q6H PRN PRN Reason: Pain, Mild 1-3,fever,headache Hydromorphone HCl (Hydromorphone Hcl 0.5 Mg/0.5 Ml Syringe) 0.5 mg IVPUSH Q3H PRN; Protocol PRN Reason: Pain, Severe (Pain Scale 7-10) Last Admin: 12/15/24 22:07 Dose: 0.5 mg Piperacillin Sod/Tazobactam (Sod 3.375 gm/ Sodium Chloride) 50 mls @ 100 mls/hr IV RQ6H [facility] Last Infusion: 12/16/24 06:13 Dose: Infused Ketorolac Tromethamine (Ketorolac Tromethamine 15 Mg/Ml Vial) 15 mg IVPUSH RQ6H [facility] Last Admin: 12/16/24 05:38 Dose: Not Given Lorazepam (Lorazepam 1 Mg Tablet) 1 mg PO BEDTIME PRN PRN Reason: sleep Last Admin: 12/15/24 23:49 Dose: 1 mg Melatonin (Melatonin 3 Mg Tablet) 6 mg PO BEDTIME PRN PRN Reason: Insomnia Ondansetron HCl (Ondansetron Hcl 4 Mg/2 Ml Vial) 4 mg IVPUSH RQ6H PRN PRN Reason: Nausea and Vomiting Oxycodone HCl (Oxycodone Hcl Immed Release 5 Mg Tablet) 5 mg PO Q6H PRN PRN Reason: Pain, Moderate(Pain Scale 4-6) Last Admin: 12/15/24 23:49 Dose: 5 mg Sodium Chloride (0.9 % Sodium Chloride Flush 3 Ml Syringe) 3 ml IVFLUSH QSHIFT KAI Last Admin: 12/16/24 07:30 Dose: 3 ml Home Medications ?Medication ?Instructions ?Recorded ?Confirmed ?Last Taken ?Type Lactobacillus rhamnosus GG 10 1 cap PO DAILY 12/11/24 12/11/24 12/10/24 History billion cell capsule (Culturelle) ascorbic acid (vitamin C) 500 mg 500 mg PO DAILY 12/11/24 12/11/24 12/10/24 History tablet (Vitamin C) ibuprofen 200 mg tablet 200 - 800 mg PO Q6H PRN Pain 12/11/24 12/11/24 Unknown History Exam Exam Date and Time: 12/16/24 1155 Height,Weight and Vital Signs: Height 6 ft Weight 111.13 kg Last Vital Signs Temp 97.5 F 12/16/24 11:47 Pulse 55 12/16/24 11:47 Resp 16 12/16/24 11:47 BP 131/82 12/16/24 11:47 Pulse Ox 96 12/16/24 11:47 O2 Del Method Room Air 12/16/24 11:47 O2 Flow Rate 2 12/15/24 16:00 Pertinent Lab Results Pertinent Lab Results: Laboratory Tests 12/11/24 12/11/24 12/16/24 07:55 09:16 09:17 WBC 8.7 RBC 4.58 L Hgb 15.0 Hct 42.1 MCV 91.9 MCH 32.8 MCHC 35.6 RDW 12.2 Plt Count 431 H MPV 10.0 Immature Gran % (Auto) 0.3 Neut % (Auto) 72.3 Lymph % (Auto) 18.7 L [place] % (Auto) 7.3 Eos % (Auto) 0.9 Baso % (Auto) 0.5 Lymph # (Auto) 1.6 [place] # (Auto) 0.6 Eos # (Auto) 0.1 Baso # (Auto) 0.0 Abs Immat Gran (auto) 0.03 Absolute Neuts (auto) 6.3 Absolute Nucleated RBC 0.000 Nucleated RBC % (auto) 0.0 Sodium 139 Potassium 3.9 Chloride 104 Carbon Dioxide 21 L Anion Gap 18 BUN 16 Creatinine 0.87 Estim Creat Clear Calc 129.5 Estimated GFR > 60 Random Glucose 96 Calcium 10.1 Total Bilirubin 0.6 AST 26 ALT 22 Alkaline Phosphatase 70 Total Protein 8.0 Albumin 4.1 Urine Color DK YELLOW Urine Appearance Turbid Urine pH 7.0 Ur Specific [place] 1.025 Urine Protein 300 (3+) H Urine Glucose (UA) 100 H Urine Ketones 40 Urine Blood Moderate (2+) H Urine Nitrite Positive H Ur Leukocyte Esterase Large (3+) H Urine RBC 6-10 H Urine WBC >50 H Urine WBC Clumps Present Ur Squamous Epith Cells 0-2 Calcium Oxalate Crystal Present Urine Bacteria 4+ Hyaline Casts 0-2 Blood Type A Positive Antibody Screen NEGATIVE Airway Mallampati Class: II (small mouth opening) TM Dist: >3cm Neck ROM: Full Loose/Missing/Broken Teeth: No (patient denies any loose or broken teeth) Heart: S1S2 Lungs: CTAB Assessment and Plan Assessment Anesthesia Assessment: Anesthesia Plan Discussed and Chart Reviewed Final Anesthetic Review Family History of Problems with Anesthesia: No History of Problems with Anesthesia: No NPO: Yes ASA Class: II Final Preanesthetic Review: No Changes in Pt Med Stat, Meds/Allgs Chart Reviewed, Consent Obtained/Reviewed and Anes Risks/Benef Reviewed Patient Risk: Low Procedure Risk: Intermediate Anesthetic Plan Anesthetic Plan: GA, Regional Block (bilateral TAP block and bilateral rectus sheath block) and Agree w/ Assess. and Plan Disposition: Standard PACU
[2024-12-16] MEDS: Lactated Ringers 1,000 ML 50 ML IVCONT ×2 (12:15→17:59)
--- NOTE | 2024-12-16 16:08 | MHC.CM.PN ---
Patient had a surgical intervention in the OR today. S/P Sigmoid resection with ostomy formation. DP Home with services for Ostomy management education. will provide transportation home. VS PT eval to determine dispo STR via BLS.
--- NOTE | 2024-12-16 16:42 | P.OP_ITS ---
Operative Note Operative Note Date of Service: 12/16/24 Narrative: Preop diagnosis: Colovesical fistula likely secondary to diverticular disease Postop diagnosis: Colovesical fistula, with a large abscess cavity markedly adherent to the bladder as well as the sigmoid, with dense adhesions, no definable planes; abscess cavity also had stool particles Procedure: Hand assisted laparoscopic sigmoid resection, extensive lysis of adhesions, with detachment of the sigmoid from the abscess cavity and the bladder, excision of part of the abscess wall, attempted end to end anastomosis of the sigmoid to the rectum, converted to end colostomy, with intraop flexible sigmoidoscopy and Surgeon: Rodney Serrano MD oncology physician assistant: SHAHID King Intraop consult: Urology, Dr. Vamsi Spence The patient is a 54-year-old male, who was admitted because of a colovesical fistula. Apparently has had problems with abdominal pain, fever and chills for a while now but had refused to come to the hospital according to his . Yesterday, he had a drain placed for the lower abdominal abscess but cystoscopy done after this had shown that the drain was in the bladder. He had a Bowman catheter left in place. The urine continued to appear turbid. In view of the large abscess, colovesical fistula, and with the IR drain in the bladder, I explained to him that it may be best to proceed with the planned procedure especially in view of his recent sepsis picture. He understood the technique of the procedure. His Evelyn was involved with the discussions Patient was brought to the operating room and placed in modified lithotomy position under general anesthesia via endotracheal tube. I removed the IR drain from the lower abdomen The patient was receiving scheduled IV Zosyn. A TAP block was done by the anesthesiologist. The abdomen and the perineum were prepped and draped in the usual sterile fashion. A surgical time-out was done. I then made a short midline incision with a blade number 15. This was carried down through the full-thickness of the skin and very thick subcutaneous fat. Please note that the patient had large amounts of subcutaneous fat in view of his body habitus I eventually reach the fascia. He was incised. The peritoneum was entered. However immediately under the incision, we encountered a very thick, fibrotic wall that appeared to represent the large abscess cavity. We had to do careful lysis of adhesions using electrocautery and Metzenbaum scissors to carefully separate this from the rest of the on the wall and allow us to have good visualization. This part of the procedure took an extended period of time. The abscess cavity was entered. This allowed us to visualize the wall and gently divided with electrocautery off of the rest of the abdominal wall. By part of the abscess cavity from the lower abdominal wall, I was able to therefore positioned the Tim wound retractor. I applied the GelPort. We insufflated through a 12 mm port through the GelPort. We positioned the laparoscope through the GelPort and inserted a 5/12 mm port in the epigastric area and moved the insufflator as well as the laparoscope into this epigastric port. We were using a 10 mm 30 degree scope. With laparoscopic visualization I inserted a 12 mm port in the right lower quadrant through a small stab incision. I inserted my hand through the GelPort. The patient was placed in a steep head-down position. I then proceeded to gently separate the sigmoid colon from the abscess cavity as well as the lower abdominal wall. With the were no well- defined planes. We had to proceed slowly using the [place] dissector to do a combination of blunt dissection with the tip, as well as with the LigaSure itself. We continued with this manner of dissection, also the sigmoid from adhesions along the on the left side. We continued to do careful dissection using the LigaSure to separate the she has segment of the sigmoid colon from the large thick walled abscess cavity as well as from the bladder. We were mindful about potential injury to the bladder itself as well as the ureter on the left side during the dissection. We had the urology service with Dr. Vamsi Spence consulted during this dissection. We continued with this extensive lysis of adhesions to separate the diseased segment of the sigmoid until we were able to completely release this. I was able to create a mesenteric window at the sigmoid proximal to this diseased area and transected this with a Endo-ERIKA 60 mm stapler. I gently dissected the peritoneal attachments of the rectosigmoid with the LigaSure to release this as well and allow more mobilization of the rectosigmoid. Once this was achieved, I created mesenteric window in the rectosigmoid. I transected this with the Endo-ERIKA 60 mm stapler as well. I then retracted the sigmoid to define the attached mesh was sigmoid. The LigaSure was used to resect the mesosigmoid. Indurated mesentery was encountered on this diseased area of the sigmoid. Eventually we could both to completely transect this and this was sent for immediate gross. The urologist injected methylene blue into the Bowman catheter. We looked for any leakage up from the bladder wall and there was no evidence of any patent fistula tract. The large abscess cavity with a very thick wall was noted. We excised part of this wall using the LigaSure and there was note large amounts of stool particles within the abscess cavity itself. At this point we therefore decided to attempt in end-to-end anastomosis and divert this with a loop ileostomy. We dilated the proximal sigmoid segment with the later. We chose the 25 mm EEA stapler. We positioned the anvil and applied a pursestring stitch using a Prolene 2-0. The 1st laboratory chemical assistant then proceeded to positioned the EEA stapler through the rectal tube all the way to the end of the rectal pouch. We attached the anvil to the EEA stapler and locked this in place. The stapler was activated. The circular anastomosis was created. We then felt that there was resistance with pulling out the EEA stapler. Eventually by carefully manipulating this, we were able to retrieve this. The two circular anastomotic donuts appeared to be intact . We then proceeded to test the anastomosis by nursing this in irrigation fluid. I used a bulb syringe to insufflate the rectum. We noticed some bubbling in the area I then proceeded to do the he was sigmoidoscopy. We are able to advance the scope gently and there was note of obvious bubbling anastomosis so we decided to withdraw the scope and detached the anastomosis . I reinserted all ports. I then proceeded to examined the staple line. This appeared to be disrupted for half of the circumference with loose omega surrounding this. In view of this disrupted anastomosis, I proceeded to resect this. I applied the Endo-ERIKA 30 mm stapler past the old staple line and transected this. We then proceeded to do the end colostomy at this point. I excised the discoid piece of skin on the left lower quadrant which we had earlier marked using a blade 10. I used the electrocautery to dissect through the thick subcutaneous fat and incised the anterior sheath. We did muscle-splitting of the rectus and incised the posterior sheath. I dilated this stoma opening to accommodate 3 of my fingers. I then proceeded to pull the stump of the sigmoid through this stoma opening with the [place] clamps. I excised the edge of the stump and proceeded to mature the stoma using a circumferential row of 3-0 simple sutures through the full-thickness of the bowel wall to the subdermal layer. I probe the stoma with my finger past the fascial level and this appeared to be patent . We then proceeded to copiously irrigate the pelvis and suctioned out the irrigant fluid. I positioned a #10 IGOR drain into the pelvis and overlying the open abscess cavity. This was brought out through the right lower quadrant port site. The fascia was closed with a running [place] 1 stitch. We examined laparoscopically and there were no bowel loops caught within the sutures . There was no twisting of the stoma. We desufflated and removed the ports Dressings were applied. The stoma appliance was placed The drain was secured to the skin with a nylon 3-0 stitch The procedure was then completed. The patient tolerated the procedure well. There were no immediate complications Estimated blood loss was about 200 cc. The urine output was bloody at the end which was anticipated. The patient was extubated without difficulty and transferred to the recovery room with stable vital signs.
--- NOTE | 2024-12-16 17:51 | PM.EVENT ---
Event Note Date of Service: 12/17/24 Event Note: Seen postop Underwent sigmoid resection, extensive lysis of adhesions for a colovesical fistula Seems to have adequate pain control Stable vital signs IGOR drain with scanty dark old blood Bowman with very minimal output - was bloody earlier and was just emptied Pain management Incentive spirometry Labs in a.m. at bedside - explained procedure Time Spent With Patient Time: Total time managing care of this patient today ____ minutes.
[2024-12-16] MEDS: oxyCODONE HCl Immed Release 5 MG TABLET PO (23:00)
[2024-12-17] MEDS: Lactated Ringers 1,000 ML 125 ML IVCONT ×2 (00:16→06:08)
[2024-12-17 02:58] VITALS: BP 103/64; PULSE 61; RESP 16; TEMP 36; O2SAT 95
[2024-12-17] MEDS: oxyCODONE HCl Immed Release 5 MG TABLET PO ×2 (06:09→20:50)
--- NOTE | 2024-12-17 06:55 | PM.PNGS ---
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 Today he is in pain around his incision sites but the pain medication is helping. He is tolerating CLD without N/V. He has not noticed any gas or bowel movements into the stoma yet. He denies fever, chills, chest pain, SOB, or dysuria. <Yara [facility] Last Filed: 12/17/24 07:09> Physical Exam Vital Signs: Vital Signs: Last Vital Signs Temp 96.8 F 12/17/24 02:58 Pulse 61 12/17/24 02:58 Resp 16 12/17/24 02:58 BP 103/64 12/17/24 02:58 Pulse Ox 95 12/17/24 02:58 O2 Del Method Room Air 12/17/24 02:58 O2 Flow Rate 2 12/16/24 19:38 BMI result Body Mass Index 33.2 <[facility] Last Filed: 12/17/24 07:09> Const: General: cooperative, comfortable, no acute distress, alert and awake <[facility] Last Filed: 12/17/24 07:09> Orientation/consciousness: patient oriented x3 <[facility] Last Filed: 12/17/24 07:09> Resp: Effort & Inspection: normal respiratory effort and able to speak in complete sentences <Digna King PA-C - Last Filed: 12/17/24 07:37> GI: Other: Colostomy bag on abdomen with scant blood. <Yara [facility] Last Filed: 12/17/24 07:09> Other: Colostomy slightly dusky, scant sanguineous drainage IGOR drain with serosanguineous output <DENNY Hoffman Last Filed: 12/17/24 07:37> Inspection: Yes J-tube present (scant serosanguinous fluid in J tube) <[facility] Last Filed: 12/17/24 07:09> Inspection: Yes incision (dressings clean and intact) <Digna iKng PA-C - Last Filed: 12/17/24 07:37> Palpation (GI): Soft to palpation, Tenderness to palpation present (GI) (around incision site), no guarding and not rigid <[facility] Last Filed: 12/17/24 07:09> Palpation (GI): Tenderness to palpation present (GI) (around incision site, mild) <Digna King PA-C - Last Filed: 12/17/24 07:37> Percussion: Yes normal to percussion <[facility] Last Filed: 12/17/24 07:09> Auscultation: normal bowel sounds <[facility] Last Filed: 12/17/24 07:09> Skin: Other: 1 bandaid and 2 wound dressing on abdomen without discharge or surrounding erythema. <[facility] Last Filed: 12/17/24 07:09> General skin exam: no erythema <[facility] Last Filed: 12/17/24 07:09> Neuro: General: patient oriented x3 <[facility] Last Filed: 12/17/24 07:09> Objective Data Active Medications Hydromorphone HCl (Hydromorphone Hcl 0.5 Mg/0.5 Ml Syringe) 0.5 mg IVPUSH Q3H PRN; Protocol PRN Reason: Pain, Severe (Pain Scale 7-10) Last Admin: 12/16/24 18:37 Dose: 0.5 mg Documented By: LISSA Piperacillin Sod/Tazobactam (Sod 3.375 gm/ Sodium Chloride) 50 mls @ 100 mls/hr IV RQ6H [facility] Last Admin: 12/17/24 06:07 Dose: 100 mls/hr Documented By: SWATHI Lactated Ringer's (Lr) 1,000 mls @ 125 mls/hr IVCONT .Q8H [facility] Last Admin: 12/17/24 06:08 Dose: 125 mls/hr Documented By: SWATHI Acetaminophen (Ofirmev) 1,000 mg in 100 mls @ 400 mls/hr IV Q6H [facility] Last Infusion: 12/17/24 06:31 Dose: Infused Documented By: SWATHI Lorazepam (Lorazepam 1 Mg Tablet) 1 mg PO BEDTIME PRN PRN Reason: sleep Last Admin: 12/16/24 23:00 Dose: 1 mg Documented By: SWATHI Melatonin (Melatonin 3 Mg Tablet) 6 mg PO BEDTIME PRN PRN Reason: Insomnia Ondansetron HCl (Ondansetron Hcl 4 Mg/2 Ml Vial) 4 mg IVPUSH Q6H PRN PRN Reason: nausea Oxycodone HCl (Oxycodone Hcl Immed Release 5 Mg Tablet) 5 mg PO Q4H PRN PRN Reason: Pain, Moderate(Pain Scale 4-6) Last Admin: 12/17/24 06:09 Dose: 5 mg Documented By: SWATHI Sodium Chloride (0.9 % Sodium Chloride Flush 3 Ml Syringe) [facility] Last Admin: 12/16/24 23:00 Dose: 3 ml Documented By: SWATHI <Yara [facility] - Last Filed: 12/17/24 07:09> Labs CBC & Chem 7: 12/11/24 07:55 12/11/24 07:55 <Yara [facility] - Last Filed: 12/17/24 07:09> Labs: Laboratory Results - last 24 hr 12/16/24 09:17 Blood Type A Positive Antibody Screen NEGATIVE <[facility] - Last Filed: 12/17/24 07:09> Procedures Date of Service Date of Service: 12/17/24 <Yara [facility] - Last Filed: 12/17/24 07:09> 12/17/24 <Digna King PA-C - Last Filed: 12/17/24 07:37> 12/17/24 <Rodney Serrano MD - Last Filed: 12/17/24 07:44> Progress Note: A&P Assessment and plan (1) [place]-vesical fistula: Status: Acute <Yara [facility] Last Filed: 12/17/24 07:09> Assessment and Plan: Seems to have good pain control Denies flatus from his stoma No nausea or vomiting Tolerating clear liquids Abdomen is soft Stoma appears viable Urine output clearing Labs okay Pain management Ambulate Incentive spirometry Await return of GI function Keep IGOR drain in place Keep Chicas catheter in place Seen and examined independently <Rodney Serrano MD - Last Filed: 12/17/24 07:44> (2) S/P colostomy: Status: Acute <Yara Garcia - Last Filed: 12/17/24 07:09> Assessment and Plan: The patient is a 54 year old male POD#1 s/p hand assisted 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 PLAN: Continue pain management Ambulate once tolerated Continue to monitor stoma for output Consider advancing diet Continue monitoring IGOR tube output Continue to use spirometry 10x per hour Agree with above assessment, patient POD #1 s/p Hand assisted laparoscopic sigmoid resection, extensive lysis of adhesions, with detachment of the sigmoid from the abscess cavity and the bladder, excision of part of the abscess wall, intraop flexible, sigmoidoscopy and end-colostomy. He is doing well post op with good pain control. VSS. Abd exam benign with appropriate post op tenderness, dressings c/d/i, ostomy dusky but viable appearing. IGOR drain serosang. Cont clear liquids for now. Keep chicas in place. Await ostomy output. Cont IV zosyn, IV abx. AM labs pending. Encouraged OOB/ambulation and increasing activity today, IS use. Patient comfortable with plan. <Digna King PA-C - Last Filed: 12/17/24 07:37> Time Spent With Patient Time: Total time managing care of this patient today ____ minutes. <Yara Garcia - Last Filed: 12/17/24 07:09> Quality Stroke Does the patient have a stroke diagnosis?: No <Yara Wall Last Filed: 12/17/24 07:09> VTE Prior VTE?: No <Yara Lawrenceh Filed: 12/17/24 07:09> VTE Risk Level:: Surgical - low <[facility] Filed: 12/17/24 07:09> VTE Device Contraindication: N/A - Device Ordered <Manjulatyrone Lawrenceh Filed: 12/17/24 07:09> VTE Drug Contraindication: Treatment Not Indicated <Manjulatyrone Lawrenceh Filed: 12/17/24 07:09>
[2024-12-17 07:01] VITALS: BP 102/61; PULSE 66; RESP 16; TEMP 36.6; O2SAT 95
[2024-12-17 09:16] LABS: Hematocrit 38.1 % (42.0-52.0); Hemoglobin 12.7 g/dl (14.0-18.0); Mean Corpuscular HGB Conc 33.3 g/dl (31.0-36.0); Mean Corpuscular Hemoglobin 31.9 pg (27.0-33.0); Mean Corpuscular Volume 95.7 fL (80.0-98.0); NRBC Abs Auto 0.000 X10*3/uL (0.0-0.012); NRBC Pct Auto 0.0 /100WBC (0.0-0.2); Platelet Count 306 X10*3/uL (160-400); Red Blood Count 3.98 X10*6/uL (4.60-5.80); White Blood Count 18.5 X10*3/uL (4.8-10.8)
[2024-12-17 10:11] LABS: Anion Gap 13 (12-20); Blood Urea Nitrogen 8 mg/dL (9-16); Calcium 9.2 mg/dL (8.4-10.2); Carbon Dioxide 23 mmol/L (22-29); Chloride 108 mmol/L (96-108); Creatinine Clr Calc Pharmacy 143.4; Estimated Glomerular Filt Rate > 60; Potassium 4.0 mmol/L (3.3-5.1); Sodium 140 mmol/L (135-145)
--- NOTE | 2024-12-17 10:21 | HO.POSTANES ---
Post Anesthesia Evaluation Post Anesthesia Evaluation Date of Service: 12/17/24 Vital Signs: Vital Signs Temp Pulse Resp BP Pulse Ox O2 Del Method O2 Flow Rate 12/17/24 07:01 97.9 F 66 16 102/61 95 Nasal Cannula 2 12/17/24 02:58 96.8 F 61 16 103/64 95 Room Air Anesthesia: Nerve Block and General Endotracheal-GETA Mental Status: Awake Pain Control: Satisfactory Nausea/Vomiting: None Hydration: Adequate Anesthesia-Related Issues: No Anes. Related Issues
--- NOTE | 2024-12-17 14:20 | PM.EVENT ---
Event Note Date of Service: 12/17/24 Event Note: Seen on early afternoon rounds He says he is ?okay? No flatus or or stool yet from the stoma Tolerating liquids well Abdomen is soft Good urine output Stoma viable looking Continue pain management Out of bed, incentive spirometry Pain management Decrease IV fluids updated Time Spent With Patient Time: Total time managing care of this patient today ____ minutes.
[2024-12-17] MEDS: Lactated Ringers 1,000 ML 80 ML IVCONT (14:28)
--- NOTE | 2024-12-17 15:40 | HO.OSTOMY ---
Ostomy Consult: Initial Teaching 54yr old male admitted to [facility] on 12/11/24 see H&P for detailed history and admission.? Consult for new ostomy teaching. ?He had an End Colostomy creation on 12/16/[address] Serrano. ?Upon entry into patient's room, he is lying in his bed, he is alert and oriented x 3, he currently has no complaints. ?Introductions were completed, he is agreeable to continuing with teaching. ? We discussed his pain control at 10 at the current moment, he reports increasing the use of his IS and has not yet ambulated. He is agreeable to trying to ambulate this evening. We began by discussing general knowledge about the Colostomy and questions he had. ?We discussed opening and closing the ostomy pouch. He was able to independently provide a return demonstration on an empty pouch. ?He had not yet emptied his pouch only bowel sweat is noted.? We discussed the importance of emptying pouch when 1/3 to 1/2 full, how to empty pouch, and lining water with toilet paper to prevent splash back. With an empty Coloplast pouch he performed a demonstration. He was also educated on when to contact mutuel clerk/Dr Serrano's office/seek emergency medical treatment. Patient was given some ostomy pouches for transition to home. Aware that Rx written for pouches and rings will be sent by Outpt nurse to [place] for home delivery.? Reviewed written education with patient and left at bedside for further review. ?He did not yet watch the education videos supplied by [facility] he prefers to wait for another date. Permission was granted for pouch assessment and no leak was noted.? Stoma is dark red and appears viable through pouch.? Due to no output from stoma pouch is not needed to be changed at this time.? Will assess at tomorrow?s teaching. However the stoma is set with a crease which will likely impact pouching in the future. He will likely need a convex pouch to compensate for the crease. He is requesting his be present for future teachings. This is agreeable and will coordinate with his Evelyn. Tape was placed over the gas vent in order for staff to be able to observe gas production - this can be removed once gas is observed in pouch. ?He reported having no questions at this time. ?Patient was made aware that I will return to bedside later in week for ongoing education - however to note patient seems to have a good understanding of care and material at this time. ?He will benefit from VNA services at time of discharge. ?All questions and concerns addressed at this time. Next teaching session goals: Demonstrate open and close independently Steps to a pouch change he is able to recall
[2024-12-17 15:41] VITALS: BP 106/56; PULSE 65; RESP 18; TEMP 36.2; O2SAT 97
[2024-12-17 20:00] VITALS: BP 120/56; PULSE 69; RESP 19; TEMP 36.3; O2SAT 95
[2024-12-18] MEDS: Lactated Ringers 1,000 ML 80 ML IVCONT (00:03)
[2024-12-18] MEDS: 0.9 % Sodium Chloride Flush 3 ML SYRINGE IVFLUSH ×3 (00:06→17:59)
[2024-12-18 00:16] VITALS: BP 103/63; PULSE 69; RESP 17; TEMP 36.1; O2SAT 96
[2024-12-18 03:10] VITALS: BP 131/69; PULSE 64; RESP 17; TEMP 36.2; O2SAT 96
[2024-12-18] MEDS: oxyCODONE HCl Immed Release 5 MG TABLET PO ×3 (06:23→17:18)
--- NOTE | 2024-12-18 06:52 | P.PNGS_ITS ---
Subjective Subjective Date of Service: 12/18/24 <Yara Jose - Last Filed: 12/18/24 07:03> 12/18/24 <Digna King PA-C - Last Filed: 12/18/24 08:01> 12/18/24 <Rodney Serrano MD - Last Filed: 12/18/24 08:30> Interval history: The patient is a 54 year old male POD#2 s/p hand assisted laproscopic sigmoid resection with colostomy bag placement due to colovesical fistula. Today, he is in more pain (8/10 without pain medication, 7/10 at time of the exam). He said the medication helps for a little bit. The pain is mostly around the incision sites and in the lower abdomen. He also has some discomfort associated with the IGOR tube. He was ambulating yesterday. He passed gas twice and felt like he had a bowel movement but did not look at the colostomy bag. He had some heartburn yesterday while eating soup and was given a PPI, which helped. Besides that, he is tolerating CLD w/o N/V. The chicas catheter is still in place and is not causing him any issues. denies fever, chills, SOB, chest pain, or issues with urination. <[facility] Last Filed: 12/18/24 07:03> Physical Exam 2 Vital Signs: Vital Signs: Last Vital Signs Temp 97.2 F 12/18/24 03:10 Pulse 64 12/18/24 03:10 Resp 17 12/18/24 03:10 BP 131/69 12/18/24 03:10 Pulse Ox 96 12/18/24 03:10 O2 Del Method Room Air 12/18/24 03:10 O2 Flow Rate 2 12/17/24 15:41 BMI result Body Mass Index 33.2 <[facility] Last Filed: 12/18/24 07:03> Const: General: cooperative, no acute distress, alert and awake <[facility] Filed: 12/18/24 07:03> Orientation/consciousness: patient oriented x3 <[facility] Filed: 12/18/24 07:03> Resp: Effort & Inspection: normal respiratory effort <[facility] Filed: 12/18/24 07:03> Auscultation: clear to auscultation bilaterally, no crackles, no rales, no rhonchi and no wheezes <[facility] Last Filed: 12/18/24 07:03> Cardio: Jugular venous distension: no JVD <[facility] Last Filed: 12/18/24 07:03> Rate: regular rate <[facility] Last Filed: 12/18/24 07:03> Rhythm: regular rhythm <[facility] Last Filed: 12/18/24 07:03> Heart sounds: no gallops, no murmurs and no rubs <[facility] Last Filed: 12/18/24 07:03> GI: Other: [address] with scant serosangui nous fluid (10mL output over past 24 hours) Colostomy bag in place with scant blood and serosanguinous fluid <[facility] Last Filed: 12/18/24 07:03> Other: [address] with scant serosangui nous fluid (10mL output over past 24 hours) Colostomy bag in place with scant blood and serosanguinous fluid incisions clean, wound frank removed <Digna King PA-C - Last Filed: 12/18/24 08:01> Palpation (GI): Soft to palpation, Tenderness to palpation present (GI) (LLQ>RLQ) in the LLQ and in the RLQ, no guarding and not rigid <[facility] Last Filed: 12/18/24 07:03> Percussion: Yes normal to percussion <[facility] Last Filed: 12/18/24 07:03> Auscultation: normal bowel sounds <[facility] Last Filed: 12/18/24 07:03> : Other: Chicas catheter bag has urine which is yellow and not cloudy <[facility] Last Filed: 12/18/24 07:03> Skin: Other: 2 dressings with some bloody discharge a nd 1 bandaid without discharge on abdomen. No notable erythema. <[facility] Last Filed: 12/18/24 07:03> Neuro: General: patient oriented x3 <[facility] - Last Filed: 12/18/24 07:03> Objective Data Active Medications Calcium Carbonate (Calcium Carbonate 750 Mg Tab.Chew) 750 mg PO Q6H PRN PRN Reason: Heartburn Last Admin: 12/17/24 21:38 Dose: 750 mg Documented By: SWATHI Hydromorphone HCl (Hydromorphone Hcl 0.5 Mg/0.5 Ml Syringe) 0.5 mg IVPUSH Q3H PRN; Protocol PRN Reason: Pain, Severe (Pain Scale 7-10) Last Admin: 12/18/24 03:11 Dose: 0.5 mg Documented By: SWATHI Piperacillin Sod/Tazobactam (Sod 3.375 gm/ Sodium Chloride) 50 mls @ 100 mls/hr IV RQ6H [facility] Last Admin: 12/18/24 06:19 Dose: 100 mls/hr Documented By: SWATHI Lactated Ringer's (Lr) 1,000 mls @ 80 mls/hr IVCONT .[id number] [facility] Last Admin: 12/18/24 06:35 Dose: Not Given Documented By: SWATHI Non-Admin Reason: IV Running Acetaminophen (Ofirmev) 1,000 mg in 100 mls @ 400 mls/hr IV Q6H [facility] Last Infusion: 12/18/24 06:34 Dose: Infused Documented By: SWATHI Lorazepam (Lorazepam 1 Mg Tablet) 1 mg PO BEDTIME PRN PRN Reason: anxiety Melatonin (Melatonin 3 Mg Tablet) 6 mg PO BEDTIME PRN PRN Reason: Insomnia Last Admin: 12/17/24 21:38 Dose: 6 mg Documented By: SWATHI Ondansetron HCl (Ondansetron Hcl 4 Mg/2 Ml Vial) 4 mg IVPUSH Q6H PRN PRN Reason: nausea Oxycodone HCl (Oxycodone Hcl Immed Release 5 Mg Tablet) 5 mg PO Q4H PRN PRN Reason: Pain, Moderate(Pain Scale 4-6) Last Admin: 12/18/24 06:23 Dose: 5 mg Documented By: SWATHI Comments: given per pt request Sodium Chloride (0.9 % Sodium Chloride Flush 3 Ml Syringe) [facility] Last Admin: 12/18/24 00:06 Dose: 3 ml Documented By: SWATHI <[facility] Last Filed: 12/18/24 07:03> Labs CBC & Chem 7: 12/17/24 08:36 12/17/24 08:36 <Yara [facility] - Last Filed: 12/18/24 07:03> Labs: Laboratory Results - last 24 hr 12/17/24 08:36 MCV 95.7 MCH 31.9 MCHC 33.3 RDW 12.4 Plt Count 306 D MPV 10.9 Absolute Nucleated RBC 0.000 Nucleated RBC % (auto) 0.0 Anion Gap 13 Estim Creat Clear Calc 143.4 Estimated GFR > 60 Random Glucose 149 H Calcium 9.2 D <[facility] - Last Filed: 12/18/24 07:03> Procedures Date of Service Date of Service: 12/18/24 <[facility] - Last Filed: 12/18/24 07:03> 12/18/24 <Digna King PA-C - Last Filed: 12/18/24 08:01> 12/18/24 <Rodney Serrano MD - Last Filed: 12/18/24 08:30> Progress Note: A&P Assessment and plan (1) S/P colostomy: Status: Acute <Yara Lawrenceh - Last Filed: 12/18/24 07:03> Assessment and Plan: Admits to incisional pain Passing small amounts of flatus via the stoma Good urine output No events overnight Abdomen is soft and benign Stoma viable Incision clean Ambulate Incentive spirometry Keep Chicas in place Keep IGOR drain in place - output scanty Seen and examined independently <Rodney Serrano MD - Last Filed: 12/18/24 08:30> Assessment and Plan: The patient is a 54 year old male POD#2 s/p hand assisted laproscopic sigmoid resection with colostomy bag placement due to colovesical fistula who is still in significant pain, has not had a bowel movement, and is having minimal IGOR output. PLAN Consider removing IGOR tube Consider advancing diet Continue monitoring colostomy bag for BM Change dressings Continue ambulating as tolerated Continue pain management <Yara Lawrenceh - Last Filed: 12/18/24 07:03> The patient is a 54 year old male POD#2 s/p hand assisted laproscopic sigmoid resection with colostomy bag placement due to colovesical fistula who is still in significant pain, has not had a bowel movement, and is having minimal IGOR output. PLAN Consider removing IGOR tube Consider advancing diet Continue monitoring colostomy bag for BM Change dressings Continue ambulating as tolerated Continue pain management Agree with above assessment, patient POD #2 s/p Hand assisted laparoscopic sigmoid resection, extensive lysis of adhesions, with detachment of the sigmoid from the abscess cavity and the bladder, excision of part of the abscess wall, intraop flexible, sigmoidoscopy and end-colostomy. Continues to do well post op. Having more incisional pain which is expected. has passed small amt of flatus. VSS. Abd exam benign with appropriate post op tenderness, dressings c/d/i, ostomy dusky but viable appearing. INcisions clean and wound frank removed. IGOR drain serosang. Cont clear liquids for now until more consistent flatus. Keep chicas in place. Await ostomy output. Cont IV zosyn, IV abx. Encouraged OOB/ambulation and increasing activity today, IS use. Patient comfortable with plan. <Digna King PA-C - Last Filed: 12/18/24 08:01> Time Spent With Patient Time: Total time managing care of this patient today ____ minutes. <Yara Lawrenceh Last Filed: 12/18/24 07:03> Quality Stroke Does the patient have a stroke diagnosis?: No <[facility] Last Filed: 12/18/24 07:03> VTE Prior VTE?: No <[facility] [employer] Last Filed: 12/18/24 07:03> VTE Risk Level:: Surgical - low <Yara Lawrenceh Last Filed: 12/18/24 07:03> VTE Device Contraindication: N/A - Device Ordered <[facility] [employer] Last Filed: 12/18/24 07:03> VTE Drug Contraindication: Treatment Not Indicated <[facility] [employer] Last Filed: 12/18/24 07:03>
[2024-12-18 07:16] VITALS: BP 101/56; PULSE 66; RESP 14; TEMP 36.6; O2SAT 95
[2024-12-18 09:26] LABS: MANUAL DIFF FLAG NO
[2024-12-18 09:31] LABS: Hematocrit 33.4 % (42.0-52.0); Hemoglobin 11.4 g/dl (14.0-18.0); Imm Gran Abs Auto 0.05 X10*3/uL (0.00-0.03); Imm Gran Pct Auto 0.3 % (0.0-0.4); Lymphocytes Absolute Auto 1.4 X10*3/uL (1.2-4.9); Mean Corpuscular HGB Conc 34.1 g/dl (31.0-36.0); Mean Corpuscular Hemoglobin 32.4 pg (27.0-33.0); Mean Corpuscular Volume 94.9 fL (80.0-98.0); NRBC Abs Auto 0.000 X10*3/uL (0.0-0.012); NRBC Pct Auto 0.0 /100WBC (0.0-0.2); Platelet Count 262 X10*3/uL (160-400); Red Blood Count 3.52 X10*6/uL (4.60-5.80); White Blood Count 14.3 X10*3/uL (4.8-10.8)
--- NOTE | 2024-12-18 14:02 | HO.OSTOMY ---
Ostomy Consult: Follow up Teaching 54yr old male admitted to [facility] on 12/11/24 see H&P for detailed history and admission.? Consult for new ostomy teaching. ?He had an End Colostomy creation on 12/16/[address] Serrano. ?Upon entry into patient's room, he is lying in his bed, he is alert and oriented x 3, he currently reports feeling unwell and tired today. He reports pain 6/10 which is tolerate to him at the moment. He request to not have teaching at this time as he is tired and feels unwell. We agreed to my return at future date and time. He was agreeable to my assessment of his stoma. The stoma is unchanged appears flush to skin level and with in a crease - pouch is intact and no leaking noted. remains with bowel sweat only. He reports he has heard gas but of note no gas is noted in pouch. Vent is covered in theory gas should be observed to be in pouch. he reports he has heard popping sounds from the stoma. This may be small gas movement but was not observed in the pouch. Patient reports minimal intact and no N/V. He has not yet ambulated today and reports ambulating once yesterday. He was given a goal t ambulate 3 -4 times today. She reports he intends to walk later in the day. He denies questions at this time and is agreeable to my return in the future. He reported having no questions at this time. ?Patient was made aware that I will return to bedside for ongoing education. ?All questions and concerns addressed at this time. Next teaching session goals: Demonstrate open and close independently Steps to a pouch change he is able to recall
--- NOTE | 2024-12-18 14:39 | PM.EVENT ---
Event Note Date of Service: 12/18/24 Event Note: Seen on afternoon rounds Complains of incisional pain Stable vital signs Has not really ambulated much yet Abdomen is soft and benign Bowman in place - urine clear yellow IGOR drain scanty dark blood Colostomy now with some stools Okay to try regular diet Would keep Bowman and IGOR drain over the weekend Pain management Continue antibiotics Evelyn updated Time Spent With Patient Time: Total time managing care of this patient today ____ minutes.
--- NOTE | 2024-12-18 15:07 | MHC.CM.PN ---
Patient s/p sigmoid resection and colostomy formation. Patient has been working with the wound care nurse to learn ostomy care. Referrals to VNAs that accept the patients insurance have been sent. Patient will likely need VNA for Ostomy management education and post op management education. Patients will provide transportation home.
[2024-12-18 15:57] VITALS: BP 110/68; PULSE 79; RESP 18; TEMP 36.6; O2SAT 95
[2024-12-18 20:00] VITALS: BP 109/63; PULSE 75; RESP 18; TEMP 36.5; O2SAT 93
[2024-12-19] MEDS: 0.9 % Sodium Chloride Flush 3 ML SYRINGE IVFLUSH ×3 (00:02→15:14)
[2024-12-19 03:50] VITALS: BP 117/63; PULSE 66; RESP 17; TEMP 36.5; O2SAT 96
[2024-12-19] MEDS: oxyCODONE HCl Immed Release 5 MG TABLET PO ×3 (05:49→22:21)
[2024-12-19 07:36] VITALS: BP 105/53; PULSE 66; RESP 14; TEMP 37.2; O2SAT 94
--- NOTE | 2024-12-19 07:50 | PM.PNGS ---
Subjective Subjective Date of Service: 12/19/24 Interval history: Patient reports improved abdominal pain. He is tolerating some p.o. without nausea or vomiting. Ostomy is producing stool. IGOR with minimal output. Physical Exam Vital Signs: Vital Signs: Last Vital Signs Temp 99.0 F 12/19/24 07:36 Pulse 66 12/19/24 07:36 Resp 14 12/19/24 07:36 BP 105/53 L 12/19/24 07:36 Pulse Ox 94 12/19/24 07:36 O2 Del Method Room Air 12/19/24 07:36 O2 Flow Rate 2 12/17/24 15:41 BMI result Body Mass Index 33.2 Const: General: no acute distress Nutritional Appearance: well nourished Orientation/consciousness: patient oriented x3 Limitations: no limitations Resp: Effort & Inspection: normal respiratory effort, no audible wheezes, no cough and no respiratory distress GI: Other: Dressings clean and intact. Ostomy pink and patent with stool and gas. IGOR with serous fluid only. Skin: Other: Warm, dry, no rash Neuro: General: patient oriented x3 Extrem: Other: No edema Objective Data Active Medications Calcium Carbonate (Calcium Carbonate 750 Mg Tab.Chew) 750 mg PO Q6H PRN PRN Reason: Heartburn Last Admin: 12/17/24 21:38 Dose: 750 mg Documented By: SWATHI Hydromorphone HCl (Hydromorphone Hcl 0.5 Mg/0.5 Ml Syringe) 0.5 mg IVPUSH Q3H PRN; Protocol PRN Reason: Pain, Severe (Pain Scale 7-10) Last Admin: 12/18/24 22:16 Dose: 0.5 mg Documented By: JHON Piperacillin Sod/Tazobactam (Sod 3.375 gm/ Sodium Chloride) 50 mls @ 100 mls/hr IV RQ6H [facility] Last Infusion: 12/19/24 06:15 Dose: Infused Documented By: JHON Acetaminophen (Ofirmev) 1,000 mg in 100 mls @ 400 mls/hr IV Q6H [facility] Last Infusion: 12/19/24 06:37 Dose: Infused Documented By: JHON Lorazepam (Lorazepam 1 Mg Tablet) 1 mg PO BEDTIME PRN PRN Reason: anxiety Melatonin (Melatonin 3 Mg Tablet) 6 mg PO BEDTIME PRN PRN Reason: Insomnia Last Admin: 12/17/24 21:38 Dose: 6 mg Documented By: SWATHI Ondansetron HCl (Ondansetron Hcl 4 Mg/2 Ml Vial) 4 mg IVPUSH Q6H PRN PRN Reason: nausea Oxycodone HCl (Oxycodone Hcl Immed Release 5 Mg Tablet) 5 mg PO Q4H PRN PRN Reason: Pain, Moderate(Pain Scale 4-6) Last Admin: 12/19/24 05:49 Dose: 5 mg Documented By: JHON Sodium Chloride (0.9 % Sodium Chloride Flush 3 Ml Syringe) 3 ml IVFLUSH QSHIFT KAI Last Admin: 12/19/24 00:02 Dose: 3 ml Documented By: JHON Labs 12/18/24 09:12 12/17/24 08:36 Labs: Laboratory Results - last 24 hr 12/18/24 09:12 MCV 94.9 MCH 32.4 MCHC 34.1 RDW 12.7 Plt Count 262 MPV 10.5 Immature Gran % (Auto) 0.3 Neut % (Auto) 84.1 H Lymph % (Auto) 9.8 L [place] % (Auto) 5.6 Eos % (Auto) 0.1 Baso % (Auto) 0.1 Lymph # (Auto) 1.4 [place] # (Auto) 0.8 Eos # (Auto) 0.0 Baso # (Auto) 0.0 Abs Immat Gran (auto) 0.05 H Absolute Neuts (auto) 12.0 H Absolute Nucleated RBC 0.000 Nucleated RBC % (auto) 0.0 Procedures Date of Service Date of Service: 12/19/24 Progress Note: A&P Assessment and plan (1) S/P colostomy: Status: Acute Plan The patient is a 54 year old male POD#3 s/p hand assisted laproscopic sigmoid resection with colostomy bag placement due to colovesical fistula feeling much improved today with decreased abdominal pain. He was able to tolerate a regular diet for the most part was mostly drinking mecca moris. Wounds remain clean and intact. Ostomy is functioning with stool in the bag. Continue Bowman and IGOR, antibiotics. Encouraged out of bed and ambulation. Encouraged incentive spirometry. Time Spent With Patient Time: Total time managing care of this patient today ____ minutes. Quality Stroke Does the patient have a stroke diagnosis?: No VTE Prior VTE?: No VTE Risk Level:: Surgical - low VTE Device Contraindication: N/A - Device Ordered VTE Drug Contraindication: Treatment Not Indicated
[2024-12-19 15:36] VITALS: BP 113/77; PULSE 65; RESP 18; TEMP 36.8; O2SAT 95
[2024-12-19 19:23] VITALS: BP 116/73; PULSE 61; RESP 18; TEMP 36.9
[2024-12-20] VITALS: BP 127/72; PULSE 60; RESP 18; TEMP 36.8; O2SAT 97
[2024-12-20] MEDS: oxyCODONE HCl Immed Release 5 MG TABLET PO ×3 (03:02→16:18)
[2024-12-20 03:39] VITALS: BP 121/76; PULSE 66; RESP 16; TEMP 37.1; O2SAT 97
[2024-12-20] MEDS: 0.9 % Sodium Chloride Flush 3 ML SYRINGE IVFLUSH ×3 (07:24→23:27)
[2024-12-20 07:30] VITALS: BP 126/75; PULSE 64; RESP 14; TEMP 37.3; O2SAT 96
--- NOTE | 2024-12-20 08:37 | P.PNGS_ITS ---
Subjective Subjective Date of Service: 12/20/24 Interval history: Interested in learning about maintenance of the colostomy. Appetite improving somewhat today. Denies any nausea or vomiting. Physical Exam 2 Vital Signs: Vital Signs: Last Vital Signs Temp 99.1 F 12/20/24 07:30 Pulse 64 12/20/24 07:30 Resp 14 12/20/24 07:30 BP 126/75 12/20/24 07:30 Pulse Ox 96 12/20/24 07:30 O2 Del Method Room Air 12/20/24 07:30 O2 Flow Rate 2 12/17/24 15:41 BMI result Body Mass Index 33.2 Const: General: no acute distress Nutritional Appearance: well nourished Orientation/consciousness: patient oriented x3 Limitations: no limitations Resp: Effort & Inspection: normal respiratory effort GI: Other: Soft and nondistended, ostomy pink and patent with soft stool and gas, no blood Skin: Other: Warm, dry, no rash Neuro: General: patient oriented x3 Extrem: Other: No pedal edema Objective Data Active Medications Calcium Carbonate (Calcium Carbonate 750 Mg Tab.Chew) 750 mg PO Q6H PRN PRN Reason: Heartburn Last Admin: 12/17/24 21:38 Dose: 750 mg Documented By: SWATHI Hydromorphone HCl (Hydromorphone Hcl 0.5 Mg/0.5 Ml Syringe) 0.5 mg IVPUSH Q3H PRN; Protocol PRN Reason: Pain, Severe (Pain Scale 7-10) Last Admin: 12/20/24 05:57 Dose: 0.5 mg Documented By: JHON Piperacillin Sod/Tazobactam (Sod 3.375 gm/ Sodium Chloride) 50 mls @ 100 mls/hr IV RQ6H [facility] Last Infusion: 12/20/24 06:30 Dose: Infused Documented By: JHON Lorazepam (Lorazepam 1 Mg Tablet) 1 mg PO BEDTIME PRN PRN Reason: anxiety Melatonin (Melatonin 3 Mg Tablet) 6 mg PO BEDTIME PRN PRN Reason: Insomnia Last Admin: 12/17/24 21:38 Dose: 6 mg Documented By: SWATHI Ondansetron HCl (Ondansetron Hcl 4 Mg/2 Ml Vial) 4 mg IVPUSH Q6H PRN PRN Reason: nausea Oxycodone HCl (Oxycodone Hcl Immed Release 5 Mg Tablet) 5 mg PO Q4H PRN PRN Reason: Pain, Moderate(Pain Scale 4-6) Last Admin: 12/20/24 03:02 Dose: 5 mg Documented By: JHON Sodium Chloride (0.9 % Sodium Chloride Flush 3 Ml Syringe) [facility] Last Admin: 12/20/24 07:24 Dose: 3 ml Documented By: GIULIANO Labs 12/18/24 09:12 12/17/24 08:36 Procedures Date of Service Date of Service: 12/20/24 Progress Note: A&P Assessment and plan (1) Diverticulitis large intestine: Status: Acute (2) S/P colostomy: Status: Acute (3) [place]-vesical fistula: Status: Acute Plan The patient is a 54 year old male POD#4 s/p hand assisted laproscopic sigmoid resection with colostomy bag placement due to colovesical fistula feeling much improved today with decreased abdominal pain. He continues to tolerate a regular diet without nausea or vomiting. Ostomy is functioning well. Continue Bowman and IGOR, antibiotics. Encouraged out of bed and ambulation. Encouraged incentive spirometry. Time Spent With Patient Time: Total time managing care of this patient today ____ minutes. Quality Stroke Does the patient have a stroke diagnosis?: No VTE Prior VTE?: No VTE Risk Level:: Surgical - low VTE Device Contraindication: N/A - Device Ordered VTE Drug Contraindication: Treatment Not Indicated
[2024-12-20 15:18] VITALS: BP 107/65; PULSE 62; RESP 18; TEMP 36.4; O2SAT 95
--- NOTE | 2024-12-20 17:24 | PC.NURSE ---
Addendum entered by Charlee Sutherland RN 12/20/24 17:42: Pt was able to ambulate to nurses station and back to room with . Pt tolerated well. Original Note: Pt educated on importance of ambulation and encouraged to walk in hallway. Pt refusing to at this time. Plan of care ongoing.
[2024-12-20 19:05] VITALS: BP 121/64; PULSE 70; RESP 18; TEMP 36.4; O2SAT 96
[2024-12-21] MEDS: oxyCODONE HCl Immed Release 5 MG TABLET PO (00:06)
[2024-12-21 03:52] VITALS: BP 113/69; PULSE 59; RESP 17; TEMP 36.3; O2SAT 95
--- NOTE | 2024-12-21 06:42 | P.PNGS_ITS ---
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 Today, he is having some intermittent abdominal cramping and 9/10 abdominal pain in the lower abdomen with sitting up and laying down. He has been trying to avoid pain medication but says he needs it when he sits up or lays down. He has been ambulating and is tolerating some solid food w/o N/V. He is not having any pain with urination or issues with the chicas catheter. He's noted gas and stool in the colectomy bag, but does not feel ready to do colostomy care yet due to the pain with movement. He denies fever, chills, chest pain, SOB. <[facility] Last Filed: 12/21/24 06:53> Physical Exam 2 Vital Signs: Vital Signs: Last Vital Signs Temp 97.3 F 12/21/24 03:52 Pulse 59 12/21/24 03:52 Resp 17 12/21/24 03:52 BP 113/69 12/21/24 03:52 Pulse Ox 95 12/21/24 03:52 O2 Del Method Room Air 12/21/24 03:52 O2 Flow Rate 2 12/17/24 15:41 BMI result Body Mass Index 33.2 <[facility] Last Filed: 12/21/24 06:53> Const: General: cooperative, no acute distress and tired appearing < [facility] Filed: 12/21/24 06:53> Orientation/consciousness: patient oriented x3 <[facility] Filed: 12/21/24 06:53> Resp: Effort & Inspection: normal respiratory effort <[facility] Filed: 12/21/24 06:53> Auscultation: clear to auscultation bilaterally, no crackles, no rales, no rhonchi and no wheezes <[facility] Filed: 12/21/24 06:53> Cardio: Jugular venous distension: no JVD <[facility] Filed: 12/21/24 06:53> Rate: regular rate <[facility] Filed: 12/21/24 06:53> Rhythm: regular rhythm <[facility] Filed: 12/21/24 06:53> Heart sounds: no click, no gallops, no murmurs, no rubs and Other heart sounds present (distant heart sounds due to position) <[facility] Filed: 12/21/24 06:53> GI: Other: IGOR tube with scant light serosanguinous fluid Colostomy bag with some fecal matter <[facility] Filed: 12/21/24 06:53> Other: IGOR tube with scant light serosanguinous fluid Colostomy beefy red, bag with some fecal matter <Digna King PA-C Last Filed: 12/21/24 07:51> Inspection: Yes incision (with omega. no surrounding erythema) <[facility] Filed: 12/21/24 06:53> Inspection: Yes incision (omega intact, no surrounding erythema) <Digna King PA-C Last Filed: 12/21/24 07:51> Palpation (GI): Soft to palpation and Tenderness to palpation present (GI) in the LUQ <[facility] Filed: 12/21/24 06:53> Percussion: Yes normal to percussion <[facility] Filed: 12/21/24 06:53> Auscultation: normal bowel sounds <[facility] Filed: 12/21/24 06:53> : Other: Chicas catheter with yellow urine <[facility] Filed: 12/21/24 06:53> Other: Chicas catheter with clear yellow urine <Digna King PA-C Last Filed: 12/21/24 07:51> Skin: Other: [address] without disch arge or surrounding erythema <[facility] Filed: 12/21/24 06:53> Lesions: lesion noted (1 surgical incision above the umbilicus w/o surrounding erythema) <[facility] - Last Filed: 12/21/24 06:53> Neuro: General: patient oriented x3 <[facility] - Last Filed: 12/21/24 06:53> Objective Data Active Medications Calcium Carbonate (Calcium Carbonate 750 Mg Tab.Chew) 750 mg PO Q6H PRN PRN Reason: Heartburn Last Admin: 12/17/24 21:38 Dose: 750 mg Documented By: SWATHI Hydromorphone HCl (Hydromorphone Hcl 0.5 Mg/0.5 Ml Syringe) 0.5 mg IVPUSH Q3H PRN; Protocol PRN Reason: Pain, Severe (Pain Scale 7-10) Last Admin: 12/20/24 17:49 Dose: 0.5 mg Documented By: GIULIANO Piperacillin Sod/Tazobactam (Sod 3.375 gm/ Sodium Chloride) 50 mls @ 100 mls/hr IV RQ6H [facility] Last Infusion: 12/21/24 06:05 Dose: Infused Documented By: JHON Lorazepam (Lorazepam 1 Mg Tablet) 1 mg PO BEDTIME PRN PRN Reason: anxiety Melatonin (Melatonin 3 Mg Tablet) 6 mg PO BEDTIME PRN PRN Reason: Insomnia Last Admin: 12/17/24 21:38 Dose: 6 mg Documented By: SWATHI Ondansetron HCl (Ondansetron Hcl 4 Mg/2 Ml Vial) 4 mg IVPUSH Q6H PRN PRN Reason: nausea Oxycodone HCl (Oxycodone Hcl Immed Release 5 Mg Tablet) 5 mg PO Q4H PRN PRN Reason: Pain, Moderate(Pain Scale 4-6) Last Admin: 12/21/24 00:06 Dose: 5 mg Documented By: JHON Sodium Chloride (0.9 % Sodium Chloride Flush 3 Ml Syringe) 3 ml IVFLUSH [facility] Last Admin: 12/20/24 23:27 Dose: 3 ml Documented By: JHON <[facility] - Last Filed: 12/21/24 06:53> Labs CBC & Chem 7: 12/18/24 09:12 12/17/24 08:36 [facility] Last Filed: 12/21/24 06:53> Procedures Date of Service Date of Service: 12/21/24 <Yara Jose - Last Filed: 12/21/24 06:53> 12/21/24 <Digna King PA-C - Last Filed: 12/21/24 07:51> 12/21/24 <Rodney Serrano MD - Last Filed: 12/21/24 08:00> Progress Note: A&P Assessment and plan (1) S/P colostomy: Status: Acute <[facility]ara Jose - Last Filed: 12/21/24 06:53> Assessment and Plan: Has pain issues with getting in and out of bed Tolerating diet well Stoma with good function Abdomen soft and benign IGOR drain removed Chicas catheter in place, urine clear Encouraged to ambulate more Seems to be ready to be discharged once with better pain control Keep Chicas in place for total of 14 days Seen and examined independently <Rodney Serrano MD - Last Filed: 12/21/24 08:00> (2) [place]-vesical fistula: Status: Acute <[facility] - Last Filed: 12/21/24 06:53> (3) Diverticulitis large intestine: Status: Acute <[facility] Last Filed: 12/21/24 06:53> Assessment and Plan: The patient is a 54 year old male POD#2 s/p hand assisted laproscopic sigmoid resection with colostomy bag placement due to colovesical fistula who is progressing with care goals but still in pain. PLAN Consider removing IGOR tube Continue patient education around colostomy care Continue with pain management as needed, consider switching to oral medication once pain is controlled Continue full diet Keep chicas catheter in place Continue ambulating Continue spirometry 10x per hour <Yara Jose - Last Filed: 12/21/24 06:53> The patient is a 54 year old male POD#5 s/p hand assisted laproscopic sigmoid resection with colostomy bag placement due to colovesical fistula who is progressing with care goals but still in pain. PLAN Consider removing IGOR tube Continue patient education around colostomy care Continue with pain management as needed, consider switching to oral medication once pain is controlled Continue full diet Keep chicas catheter in place Continue ambulating Continue spirometry 10x per hour Agree with above assessment and plan by Jose MS-3. POD #5 s/p hand assisted laparoscopic sigmoid resection, extensive lysis of adhesions, with detachment of the sigmoid from the abscess cavity and the bladder, excision of part of the abscess wall, intraop flexible, sigmoidoscopy and end-colostomy. He is overall doing well post op, still necessitating IV analgesics for pain control. Has not participated much in ostomy care due to pain. Tolerating solid diet. VSS. Abd exam benign with appropriate post op tenderness, incision clean, ostomy viable appearing with stool output. IGOR drain serosanguineous, scant and removed. Encouraged ostomy participation and oral analgesics in preparation for discharge to home- will trial oxycodone 10mg today. Keep chicas in place. Cont IV zosyn. Patient comfortable with plan. <Digna King PA-C - Last Filed: 12/21/24 07:51> Time Spent With Patient Time: Total time managing care of this patient today ____ minutes. <Yara Jose Last Filed: 12/21/24 06:53> Quality Stroke Does the patient have a stroke diagnosis?: No <[facility] Last Filed: 12/21/24 06:53> VTE Prior VTE?: No <[facility] Last Filed: 12/21/24 06:53> VTE Risk Level:: Surgical - low <[facility] Last Filed: 12/21/24 06:53> VTE Device Contraindication: N/A - Device Ordered <[facility] Last Filed: 12/21/24 06:53> VTE Drug Contraindication: Treatment Not Indicated <[facility] Filed: 12/21/24 06:53>
[2024-12-21 07:48] VITALS: BP 120/74; PULSE 63; RESP 17; TEMP 36.2; O2SAT 95
[2024-12-21] MEDS: oxyCODONE HCl Immed Release 5 MG TABLET 10 MG PO ×3 (08:34→20:30)
[2024-12-21] MEDS: 0.9 % Sodium Chloride Flush 3 ML SYRINGE IVFLUSH ×3 (08:41→20:31)
--- NOTE | 2024-12-21 09:51 | HO.OSTOMY ---
Addendum entered by Chayo Saab RN 12/21/24 15:07: 12/21/24 @ 1500 Follow up this afternoon - patient appears in better spirits has been walking once today and tolerating diet. He was agreeable to a pouch change. He participated in the pouch change and had some questions that lead to further discussion. No leak was noted.? Stoma is dark red and viable oval moist and flush to skin level within crease.? He was measuring 20mmx 38mm he will benefit from convex pouch in the future given recent surgery and no history of leaking he will remain in flat pouch # [id number] cut to size. Patient was made aware that I will return to bedside later in week for ongoing education. ?He will benefit from VNA services at time of discharge. ?All questions and concerns addressed at this time. 12/21/24 Pigmentation changes not appreciated at bedside as seen in photo. Original Note: Ostomy Consult: Follow up Teaching 54yr old male admitted to [facility] on 12/11/24 see H&P for detailed history and admission.? Consult for new ostomy teaching. ?He had an End Colostomy creation on 12/16/[address] Serrano. ?Upon entry into patient's room, he is lying in his bed, he is alert and oriented x 3, he currently reports feeling unwell and tired today. He reports pain at this time and presents as irritable. When asked how his weekend was he said not good when probed as to why he reported he still had pain. We discussed pain levels and being normal after surgery. He reported he was not up for teaching at this time. He was agreeable to a pouch assessment and was noted to have a full pouch. He was not agreeable to ambulating to bathroom and emptying he reported he couldn't move due to pain. Support was offered but the patient was reminded he needed to participate in his care in order to be successful when he went home. He was agreeable to emptying the pouch in his bed. He was resistant to initiating this task. He was convinced he was in a different pouch than he received teaching on. We discussed and he was educated that he was not in a different pouch. Overall he is resistant to emptying his own most likely out of fear. Therapeutic support was given. The patient donned gloves and was instructed to empty his pouch he was provided minimal assistance with this. He did well but was overwhelmed with the process. He reports he felt it was disgusting. We discussed to process being easier over time and continued participation will allow him to be more comfortable. He is due for a pouch change but given how resistant he was at this time I will plan to return to the bedside later this afternoon to perform a pouch change - the patient was agreeable to this. He was asked about ambulation and he reports he had not yet walked today but walked twice yesterday. He was reeducated on the importance of walking and the benefits it will provide he reported he would walk when his arrived this evening. He was encouraged to walk multiple times today and to start prior to his 's arrival this evening - he was educated on the importance of getting up and down throughout the day. The patient was frustrated and not ready for continued teaching - will return later in the day. All questions and concerns addressed at this time. Next teaching session goals: Steps to a pouch change he is able to recall Pouch change
[2024-12-21 15:28] VITALS: BP 114/68; PULSE 63; RESP 18; TEMP 36.4; O2SAT 96
[2024-12-21 19:51] VITALS: BP 104/70; PULSE 74; RESP 18; TEMP 36.9; O2SAT 95
[2024-12-22 03:41] VITALS: BP 107/70; PULSE 63; RESP 18; TEMP 36.3; O2SAT 93
[2024-12-22] MEDS: oxyCODONE HCl Immed Release 5 MG TABLET 10 MG PO ×3 (06:00→22:17)
--- NOTE | 2024-12-22 06:46 | P.PNGS_ITS ---
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 Today, he is still having pain that is a 4 or 5 out of 10 following pain medication. He has switched to oral pain management. He has passed stool and gas into his colostomy bag and said he emptied it yesterday. He has been walking the halls. He has no issues with the chicas catheter. He has been tolerating food without N/V but said he was not given dinner last night. <[facility] Last Filed: 12/22/24 06:55> Physical Exam 2 Vital Signs: Vital Signs: Last Vital Signs Temp 97.4 F 12/22/24 03:41 Pulse 63 12/22/24 03:41 Resp 18 12/22/24 03:41 BP 107/70 12/22/24 03:41 Pulse Ox 93 12/22/24 03:41 O2 Del Method Room Air 12/22/24 03:41 O2 Flow Rate 2 12/17/24 15:41 BMI result Body Mass Index 33.2 <[facility] Filed: 12/22/24 06:55> Const: General: cooperative, no acute distress and tired appearing < [facility] Filed: 12/22/24 06:55> Orientation/consciousness: patient oriented x3 <[facility] Filed: 12/22/24 06:55> Resp: Effort & Inspection: normal respiratory effort and able to speak in complete sentences <[facility] Filed: 12/22/24 06:55> Cardio: Jugular venous distension: no JVD <[facility] Filed: 12/22/24 06:55> GI: Other: Colostomy bag on abdomen which was empty <[facility] Filed: 12/22/24 06:55> Other: Colostomy bag on abdomen which was empty colostomy slightly retracted, beefy red incisions clean <DENNY Hoffman Last Filed: 12/22/24 08:12> Inspection: No visible herniation and No visible pulsation <[facility] Last Filed: 12/22/24 06:55> Palpation (GI): Soft to palpation and Tenderness to palpation present (GI) (L>R) in the LLQ and in the LUQ <[facility] Last Filed: 12/22/24 06:55> Percussion: Yes normal to percussion <[facility] Last Filed: 12/22/24 06:55> Auscultation: normal bowel sounds <[facility] Last Filed: 12/22/24 06:55> : Other: Chicas catheter in place with clear yellow urine and trace serosanguinous fluid <[facility] Last Filed: 12/22/24 06:55> Skin: Other: 2 dressings on lower abdomen, clean and dry without surrounding erythema <[facility] Last Filed: 12/22/24 06:55> General skin exam: no rashes or lesions noted <Digna King PA-C - Last Filed: 12/22/24 08:12> Lesions: lesion noted (1 small incision w/o surrounding erythema or drainage) <[facility] Last Filed: 12/22/24 06:55> Neuro: General: patient oriented x3 <[facility] Last Filed: 12/22/24 06:55> Objective Data Active Medications Calcium Carbonate (Calcium Carbonate 750 Mg Tab.Chew) 750 mg PO Q6H PRN PRN Reason: Heartburn Last Admin: 12/17/24 21:38 Dose: 750 mg Documented By: SWATHI Hydromorphone HCl (Hydromorphone Hcl 0.5 Mg/0.5 Ml Syringe) 0.5 mg IVPUSH Q3H PRN; Protocol PRN Reason: Pain, Severe (Pain Scale 7-10) Last Admin: 12/20/24 17:49 Dose: 0.5 mg Documented By: GIULIANO Lorazepam (Lorazepam 1 Mg Tablet) 1 mg PO BEDTIME PRN PRN Reason: anxiety Melatonin (Melatonin 3 Mg Tablet) 6 mg PO BEDTIME PRN PRN Reason: Insomnia Last Admin: 12/17/24 21:38 Dose: 6 mg Documented By: SWATHI Ondansetron HCl (Ondansetron Hcl 4 Mg/2 Ml Vial) 4 mg IVPUSH Q6H PRN PRN Reason: nausea Oxycodone HCl (Oxycodone Hcl Immed Release 5 Mg Tablet) 10 mg PO Q4H PRN PRN Reason: Pain, Moderate(Pain Scale 4-6) Last Admin: 12/22/24 06:00 Dose: 10 mg Documented By: GUALBERTO Sodium Chloride (0.9 % Sodium Chloride Flush 3 Ml Syringe) 3 ml IVFLUSH QSHIFT [facility] Last Admin: 12/21/24 20:31 Dose: 3 ml Documented By: GUALBERTO <Yara Lawrenceh - Last Filed: 12/22/24 06:55> Labs CBC & Chem 7: 12/18/24 09:12 12/17/24 08:36 <Yara Jose - Last Filed: 12/22/24 06:55> Procedures Date of Service Date of Service: 12/22/24 <Yara Jose - Last Filed: 12/22/24 06:55> 12/22/24 <Digna King PA-C - Last Filed: 12/22/24 08:12> 12/22/24 <Rodney Serrano MD - Last Filed: 12/22/24 09:17> Progress Note: A&P Assessment and plan (1) S/P colostomy: Status: Acute <Yara Jose - Last Filed: 12/22/24 06:55> Assessment and Plan: Says his pain management seems to be better Tolerating diet well Stoma functioning well Good urine output We will start discharge planning Chicas to leg bag Continue antibiotics for now Seen and examined independently <Rodney Serrano MD - Last Filed: 12/22/24 09:17> Assessment and Plan: The patient is a 54 year old male POD#6 s/p hand assisted laproscopic sigmoid resection with 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 PLAN Continue with colostomy care education Continue ambulation Continue pain management with oral medication Continue full diet Continue spirometry 10x per hour Keep chicas catheter in place Consider for discharge if patient is comfortable with colostomy care and tolerates oral pain control Agree with above assessment and plan by Jose MS-3. POD #6 s/p hand assisted laparoscopic sigmoid resection, extensive lysis of adhesions, with detachment of the sigmoid from the abscess cavity and the bladder, excision of part of the abscess wall, intraop flexible, sigmoidoscopy and end-colostomy. He is doing very well post op, feels as if he will be ready for dc tomorrow. Abd soft and benign, incisions clean and ostomy viable appearing. Will need VNA services for ostomy and chicas care. Will discuss with case management for arranging. Patient comfortable with plan. Cont pain control, OOB/ambulation, participation in ostomy care. <Digna King PA-C - Last Filed: 12/22/24 08:12> Time Spent With Patient Time: Total time managing care of this patient today ____ minutes. <Manjulatyrone Lawrenceh Last Filed: 12/22/24 06:55> Quality Stroke Does the patient have a stroke diagnosis?: No <Yara Jose Last Filed: 12/22/24 06:55> VTE Prior VTE?: No [facility] Last Filed: 12/22/24 06:55> VTE Risk Level:: Surgical - low <Yara Jose Last Filed: 12/22/24 06:55> VTE Device Contraindication: N/A - Device Ordered <[facility] Filed: 12/22/24 06:55> VTE Drug Contraindication: Treatment Not Indicated <[facility] Last Filed: 12/22/24 06:55>
[2024-12-22] MEDS: 0.9 % Sodium Chloride Flush 3 ML SYRINGE IVFLUSH ×3 (07:20→21:44)
[2024-12-22 07:50] VITALS: BP 118/78; PULSE 64; RESP 18; TEMP 36.3; O2SAT 95
--- NOTE | 2024-12-22 10:33 | MHC.CM.PN ---
pt to be dcd today [facility]
--- NOTE | 2024-12-22 13:15 | HO.OSTOMY ---
Ostomy Consult: Follow up Teaching 54yr old male admitted to [facility] on 12/11/24 see H&P for detailed history and admission.? Consult for new ostomy teaching. ?He had an End Colostomy creation on 12/16/[address] Serrano. ?Upon entry into patient's room, he is lying in his bed, he is alert and oriented x 3, he currently reports feeling well and is agreeable to teaching. He reports pain is manageable at this time. He reports he had not emptied his pouch since we did together yesterday - he reports there has been no stool output. His pouch was assessed and there is no evidence of stool in the pouch at this time. The vent is not covered therefore not able to observe for gas however patient feels he has had gas today. The scant contents in the pouch appear to be light brown serous fluid. His pouch is intact and no s/s of leaking at this time. The crease around the stoma continues and reinforces the likelyhood the patient will need a convex pouch. The patient was supplied with pouches for home including some convex pouches and a belt. He was instructed on the use and he was able to walk me through a open close and steps to a pouch change. We discussed the importance of his ambulating and continue to aid in the bowel full function returning given he has been sedentary and his use of oral narcotics for pain control - he verbally reports understanding. He reports he walked once today and is agreeable to ambulating 2-3 more times. We discussed his plan for d/c tomorrow and he feels comfortable with this plan. We discussed the benefits of VNA services continuing teaching and resources available to him. Will return tomorrow for pouch change prior to d/c and go over any questions he has. All questions and concerns addressed at this time.
[2024-12-22 15:12] VITALS: BP 131/74; PULSE 71; RESP 20; TEMP 36.2; O2SAT 94
[2024-12-22 19:54] VITALS: BP 117/72; PULSE 61; RESP 18; TEMP 36.7; O2SAT 94
[2024-12-23 03:37] VITALS: BP 122/73; PULSE 58; RESP 18; TEMP 36.8; O2SAT 96
[2024-12-23] MEDS: oxyCODONE HCl Immed Release 5 MG TABLET 10 MG PO (05:12)
[2024-12-23 07:47] VITALS: BP 124/72; PULSE 56; RESP 18; TEMP 36.7; O2SAT 95
--- NOTE | 2024-12-23 08:04 | PM.PNGS ---
Subjective Subjective Date of Service: 12/23/24 Interval history: Good pain control Feels well overall Good oral intake Stoma function Urine clear Has been ambulating Physical Exam Vital Signs: Vital Signs: Last Vital Signs Temp 98.1 F 12/23/24 07:47 Pulse 56 12/23/24 07:47 Resp 18 12/23/24 07:47 BP 124/72 12/23/24 07:47 Pulse Ox 95 12/23/24 07:47 O2 Del Method Room Air 12/23/24 07:47 O2 Flow Rate 2 12/17/24 15:41 BMI result Body Mass Index 33.2 Const: General: comfortable and no acute distress Resp: Effort & Inspection: normal respiratory effort Cardio: Rate: regular rate GI: Other: Stoma functioning well, all incisions clean and dry Palpation (GI): Soft to palpation, not firm and no guarding Objective Data Active Medications Calcium Carbonate (Calcium Carbonate 750 Mg Tab.Chew) 750 mg PO Q6H PRN PRN Reason: Heartburn Last Admin: 12/17/24 21:38 Dose: 750 mg Documented By: SWATHI Hydromorphone HCl (Hydromorphone Hcl 0.5 Mg/0.5 Ml Syringe) 0.5 mg IVPUSH Q3H PRN; Protocol PRN Reason: Pain, Severe (Pain Scale 7-10) Last Admin: 12/22/24 09:09 Dose: 0.5 mg Documented By: EFRAÍN Piperacillin Sod/Tazobactam (Sod 3.375 gm/ Sodium Chloride) 50 mls @ 100 mls/hr IV Q6H KAI Last Infusion: 12/23/24 05:00 Dose: Infused Documented By: ANNETTE Melatonin (Melatonin 3 Mg Tablet) 6 mg PO BEDTIME PRN PRN Reason: Insomnia Last Admin: 12/17/24 21:38 Dose: 6 mg Documented By: SWATHI Ondansetron HCl (Ondansetron Hcl 4 Mg/2 Ml Vial) 4 mg IVPUSH Q6H PRN PRN Reason: nausea Oxycodone HCl (Oxycodone Hcl Immed Release 5 Mg Tablet) 10 mg PO Q4H PRN PRN Reason: Pain, Moderate(Pain Scale 4-6) Last Admin: 12/23/24 05:12 Dose: 10 mg Documented By: ANNETTE Sodium Chloride (0.9 % Sodium Chloride Flush 3 Ml Syringe) 3 ml IVFLUSH QSHIFT [facility] Last Admin: 12/22/24 21:44 Dose: 3 ml Documented By: MELIK Labs 12/18/24 09:12 12/17/24 08:36 Procedures Date of Service Date of Service: 12/23/24 Progress Note: A&P Assessment and plan (1) [place]-vesical fistula: Status: Acute Assessment and Plan: Status post resection, end colostomy Good GI function, stoma with good output Good pain control Abdomen is soft and benign He says he is ready to be discharged today I have reinforced discharge instructions I will see him in the office next week I have updated his Evelyn Discussed with nursing staff Time Spent With Patient Time: Total time managing care of this patient today ____ minutes. Quality Stroke Does the patient have a stroke diagnosis?: No VTE Prior VTE?: No VTE Risk Level:: Surgical - low VTE Device Contraindication: N/A - Device Ordered VTE Drug Contraindication: Treatment Not Indicated
--- NOTE | 2024-12-23 08:52 | P.F2F_ITS ---
Service Date Service Date: 12/23/24 Encounter Date of encounter: 12/23/24 Reasons for Services Signs and symptoms assessed: abdominal pain, oral intake, colostomy appearance and output, incision appearance, chicas Reason for senior living: wound care and postoperative assessment and/or care Homebound: Leaving the home is medically contraindicated at this time without the asist of a device and/or another person due th the listed conditions above and below. Reason homebound: weakness related to hospital stay and unable to drive Homebound supporting statement: Mr. Calhoun is s/p [place] sigmoid resection, end colostomy for colovesical fistula. he will need VNA for colostomy and chicas catheter care. Certification: Based on the above findings, I certify that this patient is confined to the home and needs intermittent senior living care, physical therapy and/or speech therapy, or continues to need occupational therapy. The patient is under my care, and I have initiated the establishment of the plan of care. The patient will be followed by a physician who will periodically review the plan of care. Time Spent With Patient Time: Total time managing care of this patient today ____ minutes.
--- NOTE | 2024-12-23 08:57 | P.F2F_ITS ---
Service Date Service Date: 12/23/24 Encounter Date of encounter: 12/23/24 Reasons for Services Signs and symptoms assessed: Has a new colostomy Surgical incisions after assisted laparoscopic sigmoid resection, end colostomy Reason for group home: wound care (Stoma care) Homebound: Leaving the home is medically contraindicated at this time without the asist of a device and/or another person due th the listed conditions above and below. Reason homebound: other (Postop status) Certification: Based on the above findings, I certify that this patient is confined to the home and needs intermittent group home care, physical therapy and/or speech therapy, or continues to need occupational therapy. The patient is under my care, and I have initiated the establishment of the plan of care. The patient will be followed by a physician who will periodically review the plan of care. Time Spent With Patient Time: Total time managing care of this patient today ____ minutes.
[2024-12-23] MEDS: 0.9 % Sodium Chloride Flush 3 ML SYRINGE IVFLUSH (09:05)
--- NOTE | 2024-12-23 10:14 | P.DS_ITS ---
DS: Providers Provider Date of Service: 12/23/24 Date of admission: 12/11/24 15:55 Date of discharge: 12/23/24 Primary care physician: Mady Meza NP Attending physician on admission: Kiana Briones Consults: 12/11/24 15:54 Consult to Urology Routine Consulting Provider: [facility] Reason for consultation: colovesicular fistula Has provider been notified: No 12/16/24 20:01 Consult to Ostomy Care Routine Attending physician on discharge: Rodney Serrano DS: Diagnosis Discharge Diagnosis (1) S/P colostomy: Status: Acute DS: Summary Hospital Course Hospital Course: HPI AT ADMISSION: Jasen Calhoun is a 54 year old male who is admitted today to the ER complaining of abdominal discomfort and changes in his urine. He says that his urine has been smelling like feces and it has been cloudy and there are changes in the color that are suspicious. He does not describe true dysuria but he says that he seems to be urinating more frequently. His urinalysis shows significant contamination and CT scan of his abdomen and pelvis show descending and sigmoid diverticulitis with most likely fistula to the bladder as well as a intra abdominal loculated abscess. The patient has known diverticulitis in his had several episodes in the past. He said 1 of the 1st episodes was over 10 years ago and at that time he was getting a colonoscopy but they were unable to go all around his colon Secondary to the anatomy. He said he has had several episodes of diverticulitis the last 1 being in 2021 and he did well with getting admitted and being treated with IV antibiotics and then being discharged home with ciprofloxacin. He says now on and off over the last several weeks he has been having little bit more discomfort and feels like he is waking up and going to the bathroom more and his urine is discolored with some odor. He does describe having pneumaturia. He denies any significant fevers or chills. He has been having a decreased sense of appetite as he feels that if he eats too heavy then the discomfort in his abdomen is worse. He denies any nausea or vomiting. He denies any bright red blood per rectum or melena. HOSPITAL COURSE: He was admtited to the surgical service for further treatment of the colovesical fistula and intra-abdominal abscess. He was started on IV zosyn, IVF, PRN analgesics. He was overall stable and plan was for IR drainage of the collection when available the weekend as well as Urology consult to plan for cystoscopy. He underwent CT guided drain placement for the lower abdominal abscess on 12/15/24. He had subsequent cystoscopy done after which had shown that the drain was in the bladder. Chicas catheter was left in place. The urine continued to appear turbid. In view of the large abscess, colovesical fistula, and with the IR drain in the bladder, I explained to him that it may be best to proceed with the planned procedure during this stay especially in view of his recent sepsis picture. He and his were in agreement and he was added onto the OR schedule for the following day. On 12/16/24, hand assisted laparoscopic sigmoid resection, extensive lysis of adhesions, with detachment of the sigmoid from the abscess cavity and the bladder, excision of part of the abscess wall, attempted end to end anastomosis of the sigmoid to the rectum, converted to end colostomy, with intraop flexible sigmoidoscopy was performed by Dr. Serrano. He was found to have colovesical fistula, with a large abscess cavity markedly adherent to the bladder as well as the sigmoid, with dense adhesions and no definable planes. The abscess cavity also had stool particles. The patient tolerated the procedure well. A IGOR drain was placed intraoperatively. He had an uncomplicated but slow recovery course. He remained inpatient for 7 days post operatively for pain control and IV abx and awaiting ostomy function. His ostomy began producing flatus and stool. His diet was advanced. Colostomy and chicas care education was performed. He was weaned off IV analgesics. On the day of discharge, he felt well and was tolerating a solid diet without nausea or vomiting, had good pain control on oral analgesics and was ambulating without difficulty. He was hemodynamically stable. His abdomen was benign with appropriate post op tenderness and clean incisions with viable appearing ostomy and good flatus. Chicas cath was in place with straw colored urine. He felt ready for discharge. He was discharged to home on 12/23/24 in stable condition with VNA services and on Augmentin for 3 days to complete 14 days total of abx. He was discharged on stool softeners to assist with colostomy output. He is to follow up in the office in 1 week. He is to follow up with urology as outpatient for chicas removal. Status at Discharge Functional status at discharge: independent ambulation Overall status at discharge: patient is progressing back to baseline Time Attestation Discharge Coordination Time (in mins): 50 Quality: Safe Use of Opioids Does Pt have an Active Cancer Diagnosis on the Problem List?: No Quality: Stroke Does the patient have a stroke diagnosis?: No Physical Exam Vital Signs: Vital Signs: Last Vital Signs Temp 97.3 F 12/22/24 07:50 Pulse 64 12/22/24 07:50 Resp 18 12/22/24 07:50 BP 118/78 12/22/24 07:50 Pulse Ox 95 12/22/24 07:50 O2 Del Method Room Air 12/22/24 07:50 O2 Flow Rate 2 12/17/24 15:41 BMI result Body Mass Index 33.2 Const: Orientation/consciousness: patient oriented x3 Resp: Effort & Inspection: normal respiratory effort GI: Other: midline incision clean, omega in place colostomy slightly retracted, pink abd soft, mild incisional tenderness Inspection: No distended Skin: General skin exam: no rashes or lesions noted Neuro: General: patient oriented x3 and moves all extremities DS: Data Data Completed and Pending Completed studies during hospitalization [Text1]: 12/15/24 15:27 Surgical [PTH] Routine 12/16/24 14:39 Surgical [PTH] Routine A. Sigmoid colon and colovesical fistula, segmental resection: -Acute on chronic diverticulitis, with intramural abscess, serosal perforation, and fistulous tract compatible with colovesical fistula. -Inflammatory polyp, polypoid granulation tissue, focal mucosal hyperplasia, and focal mucosal changes consistent with diverticular disease-associated chronic colitis. -Five reactive lymph node. -No evidence of dysplasia or malignancy. B. Colon, anastomotic rings: -Two annular portions of bowel consistent with anastomotic rings. -Metallic surgical instrument identified; macroscopic description only. C. Soft tissue, abdominal cavity abscess, excision: -Benign soft tissue with dense fibrosis, inflammation, fat necrosis, and focal hemorrhage, consistent with abscess cavity wall Discharge Plan Discharge Anticipated Discharge Date/Time: 12/23/24 08:06 Patient Disposition: Home Health Service Discharge Diagnosis: colovesical fistula, intraabdominal abscess, s/p sigmoid resection and end colostomy Referrals: yi hadley [Other] - 1 Week Madai Rhodes MD [Physician, Urology] - 1 Week Rodney Serrano MD [Physician, General Surgery] - 1 Week Mady Meza NP [Primary Care Provider, Family Practice] - 1 Week Discharge Medications: New oxycodone 5 mg tablet 5 mg PO Q4H PRN (Reason: pain (scale score 7-10)) Qty: 26 0RF Rx Instructions: Partial Fill upon patient request. amoxicillin-pot clavulanate 875-125 mg tablet 1 tab PO BID Qty: 6 0RF Continued ascorbic acid (vitamin C) [Vitamin C] 500 mg Tablet 500 mg PO DAILY ibuprofen 200 mg Tablet 200 - 800 mg PO Q6H PRN (Reason: Pain) Culturelle 10 billion cell Capsule 1 cap PO DAILY Discharge Orders: Discharge Order (Routine); Ordered 12/23/24 Ordered By: Rodney Serrano Diet: Advance to usual diet Activity on Discharge: No heavy lifting Stand Alone Forms: Patient Portal Discharge page Print Language: Portuguese Activity Restrictions/Additional Instructions: If the incision area is tender, you may apply an ice pack for short intervals (No more than 20 minutes on, followed by at least 20 minutes off). Do not apply heat. Do not use creams, lotions, or topical antibiotics. These can cause infection or allergic reaction. Take colace 100mg orally morning and night while you are taking oxycodone. Take miralax once a day as needed for constipation. Ok to shower. You have omega closing your incision and these will be removed approximately 10-14 days after surgery. NO HEAVY LIFTING (>10lbs) or strenuous activity. Follow up in office with Dr. Serrano in 1-2 weeks. ([phone]) Follow up with Dr. Spence in the office in 1-2 weeks. Call Your Doctor If: -Your temperature exceeds 101.5? F -You experience excessive pain or swelling -You have an unexpected reaction to medication -You have excessive bleeding -You experience continued vomiting/nausea -Your incision begins to separate -Your incision shows signs of infection such as increased redness, swelling, excessive pain, drainage (light blood or clear fluid is normal) or heat Ostomy recommendations: 1. Empty pouch before pouch change 2. Remove pouch using push/pull technique from top to bottom 3. Cleanse stoma and skin with tap water only - no soap or baby wipes 4. Pat dry 5. Measure stoma and cut new pouch no more than 1/8 inch larger than stoma and no smaller than stoma 6. If instructed by your ostomy nurse stretch barrier seal to the size of the stoma and press onto skin around stoma (up to the edge of the stoma but not onto the stoma) 7. Press the new pouch into place and hold for several minutes (close pouch tail) 8. Empty pouch when 1/3 to 1/2 full 9. Change pouch twice weekly on a schedule (for example, every Saturday and ) and as needed for any leaking (feels like intense itch or burn at edge of stoma) 10. May order pre-cut pouches (already cut to size of stoma) once stoma measures the same size consistently. ? Chicas catheter care: Wash your hands before and after touching the catheter or bag. Clean the skin around where the catheter enters your body once a day with soap and water. Pat dry. Keep the bag below your bladder (waist level) at all times. Empty the bag when it?s about 2/3 full or every 6?8 hours: ? Open the spout over the toilet ? Don?t touch the tip ? Close it tightly after draining Make sure the tube isn?t kinked or pulled. Secure it with a leg strap or tape. Call your doctor if you have: ? Fever or chills ? Pain in your lower belly ? Blood, pus, or foul-smelling urine ? No urine draining ? Leaking around the catheter Care Plan Goals: Return to baseline health and resume normal activities following recovery period. Eventual chicas catheter removal. Health Concerns: colovesical fistula intraabdominal abscess Plan of Treatment: s/p sigmoid resection, end colostomy IV transitioned to oral abx Follow up in the office in with Dr. Serrano in 1 week. Follow up with Dr. Spence for chicas removal. VNA for chicas and ostomy care Assessment: Doing well post op.
--- NOTE | 2024-12-23 11:07 | HO.OSTOMY ---
Ostomy Consult: Follow up Teaching 54yr old male admitted to [facility] on 12/11/24 see H&P for detailed history and admission.? Consult for new ostomy teaching. ?He had an End Colostomy creation on 12/16/[address] Serrano. ?Upon entry into patient's room, he is lying in his bed, he is alert and oriented x 3, he currently reports feeling well and is agreeable to teaching. He reports pain is manageable at this time. He reports he had not emptied his pouch since we did together yesterday - he reports there has been no stool output. His pouch was assessed and there is scant brown stool noted in the pouch. Patient reports significant gaye no nausea and no vomiting. Left abdomen is firm to touch non tender. General Surgery SHAHID Louis at bedside aware assessed and no concern for d/c. Patient is on oral narctoics and recommend stool softener. He was agreeable to a pouch change at this time since he was discharging to home. The pouch was removed and stoma is red moist and viable small necrotic are at 9 o'clock there is erythema noted from 6-2 oclock concern for future MCJ separation - no intervention needed at this time. Gievn erythema and firm abdomen and no leaking prior would recommend continue pouching with flat pouch however the crease around the stoma continues and reinforces the likelyhood the patient will need a convex pouch in the future. The patient was supplied with pouches for home including some convex pouches and a belt. He was instructed on the use and he was able to walk me through a open close and steps to a pouch change. We discussed the importance of his ambulating and continue to aid in the bowel full function returning given he has been sedentary and his use of oral narcotics for pain control - he verbally reports understanding. He reports he walked once today and is agreeable to ambulating 2-3 more times. We discussed his plan for d/c tomorrow and he feels comfortable with this plan. We discussed the benefits of VNA services continuing teaching and resources available to him. He denies questions at this time and feel comfortable with d/c to home. All questions and concerns addressed at this time. Stoma 12/23/24
== END 2024-12-23 11:54 | disposition home health service (06) | DRG 330 ==
LOC: HO.ED 13:19 → HO.EDOVER 15:56 → HO.S3 19:08
PROVIDERS: Physician Assistant Surgical; Radiology Diagnostic Radiology; Surgery; Urology; Admitting Provider Surgery; Emergency Provider Emergency Medicine; PCP Nurse Practitioner; Visit Provider Surgery
PROC: 0W9G3ZZ Drainage of Peritoneal Cavity, Percutaneous Approach (ICD-10-PCS; principal; 2024-12-15 11:30)
PROC: 0T5B8ZZ Destruction of Bladder, Via Natural or Artificial Opening Endoscopic (ICD-10-PCS; principal; 2024-12-15 16:30)
PROC: 0DTE0ZZ Resection of Large Intestine, Open Approach (ICD-10-PCS; principal; 2024-12-16 12:30)
DX: K57.20 Diverticulitis of large intestine with perforation and abscess without bleeding (principal); N32.1 Vesicointestinal fistula; K66.0 Peritoneal adhesions (postprocedural) (postinfection); G89.18 Other acute postprocedural pain; Z87.891 Personal history of nicotine dependence; Z79.899 Other long term (current) drug therapy
CPT/HCPCS: 36415; 49406; 74177; 80048; 80053; 81001; 85025; 85027; 86850; 86900; 86901; 87086; 88304; 88305; 88307; 88309; 99152; 99285; C1729; J0131; J0696; J1100; J1171; J1885; J2003; J2250; J2405; J2543; J2704; J2795; J3010; J7120; Q9967; Q9968

== ENCOUNTER → 2024-12-11 08:11 | Outpatient (BNV) | payer OTHER, SELFPAY | PROVIDERS: Emergency Provider Emergency Medicine; PCP Nurse Practitioner; Visit Provider Radiology Diagnostic Radiology | DX: K65.1 Peritoneal abscess (principal) | CPT/HCPCS: 74177 ==

== ENCOUNTER 2024-12-11 15:55 | Outpatient (BNV) | payer OTHER, SELFPAY | END 2024-12-15 11:31 | PROVIDERS: Admitting Provider Surgery; Emergency Provider Emergency Medicine; PCP Nurse Practitioner; Visit Provider Radiology Diagnostic Radiology | DX: K57.20 Diverticulitis of large intestine with perforation and abscess without bleeding (principal) | CPT/HCPCS: 49406 ==

== ENCOUNTER → 2024-12-11 15:55 | Outpatient (BNV) | payer OTHER, SELFPAY | PROVIDERS: Admitting Provider Surgery; Emergency Provider Emergency Medicine; PCP Nurse Practitioner; Visit Provider Surgery | DX: N32.1 Vesicointestinal fistula (principal) | CPT/HCPCS: 99222; 99232 ==

== ENCOUNTER → 2024-12-11 15:55 | Outpatient (BNV) | payer OTHER, SELFPAY | PROVIDERS: Admitting Provider Surgery; Emergency Provider Emergency Medicine; PCP Nurse Practitioner; Visit Provider Urology | DX: N32.1 Vesicointestinal fistula (principal) | CPT/HCPCS: 99222 ==

== ENCOUNTER 2024-12-29 12:46 | Outpatient (REF) | payer OTHER, SELFPAY ==
--- NOTE | ~2024-12-29 | FL_ITS ---
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 TECHNIQUE: A Bowman's catheter 250 mL of Cystografin was retrogradely injected under fluoroscopy. Images were obtained before and after cystography. FINDINGS: AP obtained prior to cystography no radiopaque material seen. There is bilateral inflated Bowman's catheter in the bladder Following contrast administration there is mild distention of urinary bladder with contrast extravasation into the retro-peritoneum consistent with fistula. On connecting the bladder to drainage bag there is very slow emptying of contrast from the bladder on delayed images. The bladder did not empty completely. FLUOROSCOPY TIME: 1 minute 50 seconds. DOSE AREA PRODUCT: 2321 uGy-m2 (microgray-meter squared) FL/FL cystogram IMPRESSION: On retrograde cystogram there is extravasation of contrast into the peritoneum consistent with fistula. Results were conveyed to Dr. Vamsi Spence and Dr Serrano after the exam. Electronically signed by: Chip Hopkins MD 12/29/2024 03:59 PM EDT
--- OUTSIDE RECORDS SUMMARY | 2024-12-29 16:43 | XMS_ITS | Encounter Summary ---
Author Organization [facility] Address [address] [place] [address] Phone Care Team Providers Care Sales And Merchandising Representative Name Role Phone Tr Shah MD Primary Care Provider [phone] Tr Shah MD Primary Care Provider Encounter Details Date Type Department Care Team (Late st Contact Info) Description 07/29/2017 Procedure Pass [facility], Ct Scan - [address] [address] Social History Tobacco Use Types Packs/Day Years [...] on filedocumented in this encounter Care Teams Sales And Merchandising Representative Relationship Specialty Start Date End Date Tr Shah MD [email or web address] PCP - General Family Medicine 02/13/22 12/08/24 Tr Shah MD [address] [place] [phone] [email or web address] PCP - General Family Medicine 12/09/24 documented as of this encounter Additional Source Comments The information contained in this document represents components of the legal health record. It is not the complete legal health record.[facility]
--- OUTSIDE RECORDS SUMMARY | 2024-12-29 16:43 | XMS_ITS | Encounter Summary ---
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 Not on f ile Not on file documented as of this encounter Functional Status * Calculated C-SSRS Risk Score (Lifetime/Recent) Answer Date of Assessment Author No Risk Indicated 02/13/2022 8:23 AM EDT Macy Verduzco RN * [place] Suicide Severity Rating Scale (Screener/Recent Self-Report) Question [...] on filedocumented in this encounter Care Teams Family Welfare Social Work Professor Relationship Specialty Start Date End Date Tr Shah MD [email or web address] PCP - General Family Medicine 02/13/22 12/08/24 Tr Shah MD [address] [place] [phone] [email or web address] PCP - General Family Medicine 12/09/24 documented as of this encounter Additional Source Comments The information contained in this document represents components of the legal health record. It is not the complete legal health record.[facility]
--- OUTSIDE RECORDS SUMMARY | 2024-12-29 16:43 | XMS_ITS | Clinical Summary ---
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 Not on f [...] 02/13/2022 POTASSIUM LEVEL 02/15/2023 02/15/2022, 02/14/2022, 02/13/2022 INFLUENZA VACCINE (#1) 2024 04/30/2012 COVID-19 VACCINE (1 - 2023-2 5 season) 2024 SCREENING FOR DIABETES 02/15/2025 02/15/2022 BLOOD PRESSURE [...] Special Requests None 12/09/2024 6:20 PM EDT [facility] Urine Culture >100,000 colony forming units per mL ESCHERICHIA COLI(A) 12/11/2024 8:55 AM EDT [facility] Urine (Urine) 12/09/2024 6:2 0 PM [...] LANDRY METHOD <=1: Susceptible Comment: Bri Baires [employer]ARM MACHINE TENDER MICROBIOLOGY - GENERAL ORDE ANA ROSA Final Result [facility] [address] [place] [address] * (ABNORMAL) Comprehensive metabolic panel (02/15/2022 5:31 AM EDT) SODIUM 139 133 - 146 mmol/L [facility] POTASSIUM 4.4 3.3 - 5.1 mmol/L [facility] CHLORIDE 102 96 - 108 mmol/L [facility] CO2 25 21 - 35 mmol/L [facility] BUN 17 6 - 19 mg/dL [facility] CREATININE 0.90 0.5 - 1.5 mg/dL [facility] GLUCOSE 95 70 - 99 mg/dL [facility] ALBUMIN 3.5(L) 3.9 - 4.8 g/dL [facility] TOTAL PROTEIN 7.2 6.5 - 8.0 g/dL [facility] CALCIUM 9.1 8.4 - 10.3 mg/dL [facility] ALKALINE PHOSPHATASE 60 39 - 117 U/L [facility] TOTAL BILIRUBIN 0.5 0.0 - 1.2 mg/dL [facility] AST 33 0 - 37 U/L [facility] ALT 39 0 - 40 U/L [facility] GLOBULIN 3.7 1 - 4.8 g/dL [facility] EGFR 102 >59 mL/min/1.7 3m2 [facility] Comment:Estimated glomerular filtration rate calculated using the CKD-EPI refit equation. ANION GAP 16 10 - 20 mmol/L [facility] Blood 02/15/2022 5:31 AM EDT 02/15/2022 5:48 AM EDT Rayne Kirkland DO, MPH LAB BLOOD ORDER SHAUN Final Result [facility] [address] [place] [address] from Last 3 Months or Most Recently Relevant to Health Maintenance Insurance [facility] HMO POS CIG[employer] PPO [facility] [place] [address] [place] [address] HMO [place] [address] [address] [place] [address] [place] [place] [address] [place] [address] HMO POS [facility] [facility] Advance Directives For more information, please contact: [phone] (9AM - 5PM [place], Saturday-Saturday) * Full Code (Latest Code Status on File) Date Activated Date Inactivated Comments 02/13/2022 5:49 PM Question Answer Comments Code Status Confirmed With: Patient Care Teams Retail Customer Service Representative Relationship Specialty Start Date End Date Tr Shah MD [address] [place] [phone] [email or web address] PCP - General Family Medicine 12/09/24 Additional Source Comments The information contained in this document represents components of the legal health record. It is not the complete legal health record.[facility]
--- OUTSIDE RECORDS SUMMARY | 2024-12-29 16:43 | XMS_ITS | Encounter Summary ---
Author Organization 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 It is not the complete legal health record.[facility]
--- OUTSIDE RECORDS SUMMARY | 2024-12-29 16:43 | XMS_ITS | Encounter Summary ---
Author Organization [facility] Address [address] [place] [address] Phone Care Team Providers Care Harvest Contractor Name Role Phone Tr Shah MD Primary Care Provider [phone] Tr Shah MD Primary Care Provider [phone] Encounter Details Date Type Department Care Team (Late st Contact Info) Description 07/29/2017 Ancillary Orders Virtual Department [address] [place] [address] Jasen Chavez MD [address] [place] [phone] [email or web address] Urinary tract infection without hematuria, site unspecified [...] sent to Dr. Chavez's service via the front man on afternoon of dictation. TOTAL CTDIvol: 59.0 [...] is sent toDr. Chavez's service via the front man on afternoon of dictation. TOTAL CTDIvol: 59.0 mGy POS - [id number] Edited by: Yazmin Jimenes on 07/31/2017 1:43 PM Jasen Chavez MD IMG CT ABD/PELVIS Final Result documented in this encounter Visit Diagnoses Diagnosis Urinary tract infection without hematuria, site unspecified Urinary tract infection without hematuria, site unspecified documented in this encounter Care Teams Harvest Contractor Relationship Specialty Start Date End Date Tr Shah MD [email or web address] PCP - General Family Medicine 02/13/22 12/08/24 Tr Shah MD [address] [place] [phone] [email or web address] PCP - General Family Medicine 12/09/24 documented as of this encounter Additional Source Comments The information contained in this document represents components of the legal health record. It is not the complete legal health record.[facility]
--- OUTSIDE RECORDS SUMMARY | 2024-12-29 16:43 | XMS_ITS | Encounter Summary ---
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 PCP - General Family Medicine 02/13/22 12/08/24 Tr Shah MD [address] [place] [phone] [email or web address] PCP - General Family Medicine 12/09/24 documented as of this encounter Additional Source Comments The information contained in this document represents components of the legal health record. It is not the complete legal health record.[facility]
== END 2024-12-29 12:47 | disposition home or self-care (01) ==
LOC: HO.XRAY 12:46
PROVIDERS: PCP Nurse Practitioner; Visit Provider Urology
DX: N32.1 Vesicointestinal fistula (principal); L98.8 Other specified disorders of the skin and subcutaneous tissue
CPT/HCPCS: 51600; 74455

== ENCOUNTER → 2024-12-29 12:48 | Outpatient (BNV) | payer OTHER, SELFPAY | PROVIDERS: PCP Nurse Practitioner; Visit Provider Radiology Diagnostic Radiology | DX: N32.1 Vesicointestinal fistula (principal) | CPT/HCPCS: 51600; 74455 ==

== ENCOUNTER 2024-12-30 11:12 | Outpatient (AMB) | payer OTHER, SELFPAY ==
--- NOTE | 2024-12-30 11:13 | MHC.OFFVIS ---
Vital Signs 12/30/24 11:20 Height 6 ft Weight 232 lb BMI 31.5 BP 99/65 Blood Pressure Location Rt brachial Position Sitting Pulse 87 Intake Visit Reasons: s/p sigmoid resection Intake Note: Patient here s/ hand assisted laparoscopic sigmoid resection, extensive lysis of adhesions, with detachment of the sigmoid from the abscess cavity and the bladder, excision of part of the abscess wall, attempted end to end anastomosis of the sigmoid to the rectum, converted to end colostomy, with intraop flexible sigmoidoscopy. Patient c/o: reports good stoma output. Denies nausea. Surgery: 12-16-2024 Public Speaking Coach Required: No Accompanied by: spouse Lindsey Allergies No Known Allergies Allergy (Verified 12/11/24 07:40) Medication List - Last Reconciled 12/30/24 by Rodney Serrano MD ascorbic acid (vitamin C) (Vitamin C) 500 mg PO DAILY ibuprofen 200 - 800 mg PO Q6H PRN Lactobacillus rhamnosus GG (Culturelle) 1 cap PO DAILY HPI HPI s/p sigmoid resection: Details: 54-year-old male here for postop visit. He had undergone hand assisted laparoscopic sigmoid resection, with resection of a large abscess and a colovesical fistula last December 16, 2024 He says his colostomy is functioning well. He says this Bowman in place. He denies any abdominal male pain and feels well overall. [facility] Medical History Abdominopelvic abscess Dysuria History of diverticulosis Fistula No known health problems Surgical History Hx of colonoscopy No history of previous surgery Social History Household Members: Spouse Housing: House Do you presently have visiting nurse or other home services: No Patient Tobacco Use Status: Former Tobacco user e-Cigarette/Vaping Use: Never Used Advance Directives Date on File: 12/11/24 service: No Review of Systems Const Denies chills and Denies fever(s) Card Denies chest pain at rest Resp Denies cough GI Details: Stoma functioning well Denies abdominal pain Physical Exam Vital Signs: Last Vital Signs Pulse 87 12/30/24 11:20 BP 99/65 12/30/24 11:20 BMI result Body Mass Index 31.5 Const General: comfortable and no acute distress Resp Effort & Inspection: normal respiratory effort Cardio Rate: regular rate GI Other: Colostomy with good output, incisions well healed omega in place Palpation (GI): Soft to palpation, not firm, nontender and no guarding Assessment & Plan Assessment & Plan (1) [place]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 He still has a Bowman catheter in place He has urine is clear. He had a cystogram done yesterday but this showed some leakage through a small fistulous tract so the Bowman catheter was kept in place He is doing very well. I removed all his skin omega. I will see him again in the office in about a month. He is to continue to follow up with Dr. Spence of urology with regards to his Bowman catheter. He says he is doing well with regards to stoma care. Overall, he seems to be doing well clinically. His path report does not suggest any neoplastic process but is consistent with diverticulitis. Medications: Discontinued oxycodone Partial Fill upon patient request. Discontinued Reason: Patient Completed Course 5 mg PO Q4H PRN 26 tabs 0RF pain (scale score 7-10) amoxicillin-pot clavulanate 875-125 mg Discontinued Reason: Patient Completed Course 1 tab PO BID 6 tabs 0RF Coding Level of Care Code Global (00351) Diagnoses [place]-vesical fistula N32.1
[2024-12-30 11:20] VITALS: BP 99/65; PULSE 87; BMI 31.5
--- OUTSIDE RECORDS SUMMARY | 2024-12-30 14:24 | XMS_ITS | Encounter Summary ---
Author Organization [facility] Address [address] [place] [address] Phone Care Team Providers Care Cylinder Press Operator Name Role Phone Tr Shah MD Primary Care Provider [phone] Tr Shah MD Primary Care Provider [phone] Encounter Details Date Type Department Care Team (Late st Contact Info) Description 07/29/2017 Ancillary Orders Virtual Department [address] [place] [address] Jasen Chavez MD [address] [place] [phone] [email or web address] Urinary tract infection without hematuria, site unspecified [...] to Dr. Chavez's service via the front end application developer on afternoon of dictation. TOTAL CTDIvol: 59.0 [...] sent toDr. Chavez's service via the front end application developer on afternoon of dictation. TOTAL CTDIvol: 59.0 mGy POS - [email or web address] Edited by: Yazmin Jimenes on 07/31/2017 1:43 PM Jasen Chavez MD IMG CT ABD/PELVIS Final Result documented in this encounter Visit Diagnoses Diagnosis Urinary tract infection without hematuria, site unspecified Urinary tract infection without hematuria, site unspecified documented in this encounter Care Teams Cylinder Press Operator Relationship Specialty Start Date End Date Tr Shah MD [email or web address] PCP - General Family Medicine 02/13/22 12/08/24 Tr Shah MD [address] [place] [phone] [email or web address] PCP - General Family Medicine 12/09/24 documented as of this encounter Additional Source Comments The information contained in this document represents components of the legal health record. It is not the complete legal health record.[facility]
--- OUTSIDE RECORDS SUMMARY | 2024-12-30 14:24 | XMS_ITS | Clinical Summary ---
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 Not on f [...] Special Requests None 12/09/2024 6:20 PM EDT [facility] Urine Culture >100,000 colony forming units per mL ESCHERICHIA COLI(A) 12/11/2024 8:55 AM EDT [facility] Urine (Urine) 12/09/2024 6:2 0 PM EDT [...] LANDRY METHOD <=1: Susceptible Comment: Bri Baires [employer]SE[employer] MICROBIOLOGY - GENERAL ORDE ANA ROSA Final Result [facility] [address] [place] [address] * (ABNORMAL) Comprehensive metabolic panel (02/15/2022 5:31 AM EDT) SODIUM 139 133 - 146 mmol/L [facility] POTASSIUM 4.4 3.3 - 5.1 mmol/L [facility] CHLORIDE 102 96 - 108 mmol/L [facility] CO2 25 21 - 35 mmol/L [facility] BUN 17 6 - 19 mg/dL [facility] CREATININE 0.90 0.5 - 1.5 mg/dL [facility] GLUCOSE 95 70 - 99 mg/dL [facility] ALBUMIN 3.5(L) 3.9 - 4.8 g/dL [facility] TOTAL PROTEIN 7.2 6.5 - 8.0 g/dL [facility] CALCIUM 9.1 8.4 - 10.3 mg/dL [facility] ALKALINE PHOSPHATASE 60 39 - 117 U/L [facility] TOTAL BILIRUBIN 0.5 0.0 - 1.2 mg/dL [facility] AST 33 0 - 37 U/L [facility] ALT 39 0 - 40 U/L [facility] GLOBULIN 3.7 1 - 4.8 g/dL [facility] EGFR 102 >59 mL/min/1.7 3m2 [facility] Comment:Estimated glomerular filtration rate calculated using the CKD-EPI refit equation. ANION GAP 16 10 - 20 mmol/L [facility] Blood 02/15/2022 5:31 AM EDT 02/15/2022 5:48 AM EDT Rayne Kirkland DO, MPH LAB BLOOD ORDER SHAUN Final Result [facility] [address] [place] [address] from Last 3 Months or Most Recently Relevant to Health Maintenance Insurance [facility] HMO POS CIG[employer] PPO [facility] [place] [address] [place] [address] HMO [place] [address] [place] [address] [place] [address] HMO POS [facility] PPO [facility] Advance Directives For more information, please contact: [phone] (9AM - 5PM [place], Saturday-Saturday) * Full Code (Latest Code Status on File) Date Activated Date Inactivated Comments 02/13/2022 5:49 PM Question Answer Comments Code Status Confirmed With: Patient Care Teams Vegetable Picker Relationship Specialty Start Date End Date Tr Shah MD [address] [place] [phone] [email or web address] PCP - General Family Medicine 12/09/24 Additional Source Comments The information contained in this document represents components of the legal health record. It is not the complete legal health record.[facility]
--- OUTSIDE RECORDS SUMMARY | 2024-12-30 14:24 | XMS_ITS | Encounter Summary ---
Author Organization [facility] Address [address] [place] [address] Phone Care Team Providers Care Social Media Director Name Role Phone Tr Shah MD Primary Care Provider [phone] Tr Shah MD Primary Care Provider [phone] Encounter Details Date Type Department Care Team (Late st Contact Info) Description 07/29/2017 Procedure Pass [facility], Ct Scan - [address] [address] Social History Tobacco Use Types Packs/Day Years [...] on filedocumented in this encounter Care Teams Social Media Director Relationship Specialty Start Date End Date Tr Shah MD PCP - General Family Medicine 02/13/22 12/08/24 Tr Shah MD [address] [place] [phone] [email or web address] PCP - General Family Medicine 12/09/24 documented as of this encounter Additional Source Comments The information contained in this document represents components of the legal health record. It is not the complete legal health record.[facility]
--- OUTSIDE RECORDS SUMMARY | 2024-12-30 14:24 | XMS_ITS | Encounter Summary ---
Author Organization 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 It is not the complete legal health record.[facility]
--- OUTSIDE RECORDS SUMMARY | 2024-12-30 14:24 | XMS_ITS | Encounter Summary ---
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 Not on f ile Not on file documented as of this encounter Functional Status * Calculated C-SSRS Risk Score (Lifetime/Recent) Answer Date of Assessment Author No Risk Indicated 02/13/2022 8:23 AM EDT Macy Verduzco RN * [place] Suicide Severity Rating Scale (Screener/Recent Self-Report) Question [...] on filedocumented in this encounter Care Teams Senior Interactive Developer Relationship Specialty Start Date End Date Tr Shah MD [email or web address] PCP - General Family Medicine 02/13/22 12/08/24 Tr Shah MD [address] [place] [phone] [email or web address] PCP - General Family Medicine 12/09/24 documented as of this encounter Additional Source Comments The information contained in this document represents components of the legal health record. It is not the complete legal health record.[facility]
--- OUTSIDE RECORDS SUMMARY | 2024-12-30 14:24 | XMS_ITS | Encounter Summary ---
Author Organization 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 Not on file documented as of this encounter Functional Status * Calculated C-SSRS Risk Score (Lifetime/Recent) Answer Date of Assessment Author No Risk Indicated 02/13/2022 8:23 AM EDT Macy Verduzco RN * [place] Suicide Severity Rating Scale (Screener/Recent Self-Report) Question [...] on filedocumented in this encounter Care Teams Overnight Cashier Relationship Specialty Start Date End Date Tr Shah MD [email or web address] PCP - General Family Medicine 02/13/22 12/08/24 Tr Shah MD [address] [place] [phone] [email or web address] PCP - General Family Medicine 12/09/24 documented as of this encounter Additional Source Comments The information contained in this document represents components of the legal health record. It is not the complete legal health record.[facility]
== END 2024-12-30 11:42 | disposition home or self-care (01) ==
LOC: HO.HGS 11:12
PROVIDERS: PCP Nurse Practitioner; Visit Provider Surgery
DX: N32.1 Vesicointestinal fistula (principal)
CPT/HCPCS: 99024

== ENCOUNTER 2025-01-08 12:57 | Outpatient (REF) | payer OTHER, SELFPAY ==
--- NOTE | ~2025-01-08 | FL_ITS ---
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 Images were obtained prior to retrograde injection and post drainage. FINDINGS: On pre drainage pelvis x-ray there is no radiopaque density seen in the pelvis. Following retrograde administration of contrast through Bowman's catheter there is irregular shaped central and left dome of bladder. There is again extravasation of contrast along the left dome of bladder into the retroperitoneum similar to previous exam at the same site. FLUOROSCOPY TIME: 1 minute 18 seconds DOSE AREA PRODUCT: 1608 uGy-m2 (microgray-meter squared) FL/FL cystogram IMPRESSION: Persistent extravasation of Cystografin along the left dome of diaphragm into the retroperitoneum still contained. No major change from last exam. Electronically signed by: Chip Hopkins MD 01/08/2025 02:41 PM EDT
--- OUTSIDE RECORDS SUMMARY | 2025-01-08 14:21 | XMS_ITS | Encounter Summary ---
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 Not on file documented as of this encounter Functional Status * Calculated C-SSRS Risk Score (Lifetime/Recent) Answer Date of Assessment Author No Risk Indicated 02/13/2022 8:23 AM EDT Macy Verduzco RN * [place] Suicide Severity Rating Scale (Screener/Recent Self-Report) Question [...] on filedocumented in this encounter Care Teams Labor Economics Teacher Relationship Specialty Start Date End Date Tr Shah MD [email or web address] PCP - General Family Medicine 02/13/22 12/08/24 Tr Shah MD [address] [place] [phone] [email or web address] PCP - General Family Medicine 12/09/24 documented as of this encounter Additional Source Comments The information contained in this document represents components of the legal health record. It is not the complete legal health record.[facility]
--- OUTSIDE RECORDS SUMMARY | 2025-01-08 14:21 | XMS_ITS | Encounter Summary ---
Author Organization 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 Not on file documented as of this encounter Functional Status * Calculated C-SSRS Risk Score (Lifetime/Recent) Answer Date of Assessment Author No Risk Indicated 02/13/2022 8:23 AM EDT Macy Verduzco RN * [place] Suicide Severity Rating Scale (Screener/Recent Self-Report) Question [...] on filedocumented in this encounter Care Teams Power Generation Technician Relationship Specialty Start Date End Date Tr Shah MD [email or web address] PCP - General Family Medicine 02/13/22 12/08/24 Tr Shah MD [address] [place] [phone] [email or web address] PCP - General Family Medicine 12/09/24 documented as of this encounter Additional Source Comments The information contained in this document represents components of the legal health record. It is not the complete legal health record.[facility]
--- OUTSIDE RECORDS SUMMARY | 2025-01-08 14:21 | XMS_ITS | Clinical Summary ---
Author Organization [facility] Address [address] [place] [address] [place] [address] Phone Care Team Providers Care Park Services Specialist Name Role Phone Tr Shah MD Primary Care Provider [phone] Allergies No known active allergies Medications lisinopril (PRINIVIL,ZESTRI L) 20 MG tablet Take 20 mg by mouth daily. 03/06/2022 Active Active Problems Problem Noted Date Diagnosed Date [...] Office Visit [facility] [address] [address] Bri Baires CNP Dysuria (Primary Dx) from Last 3 Months Immunizations Immunization Administration Dates Next Due Influenza, Unspecified Formulation 04/30/2012 Tdap 10/09/2018,07/09/2008 Family History Medical History Relation Comments Diabetes type II Father Diverticulitis Father Relation Status Comments Brother Alive Father Mother Alive Social History Tobacco Use Types Packs/Day Years Used Date Smoking Tobacco: Former Cigarettes Q uit: 1997 Smokeless Tobacco: Never Alcohol Use Standard Drinks/Week [...] 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1 mmol/L [facility] CHLORIDE 102 96 - 108 mmol/L [facility] CO2 25 21 - 35 mmol/L [facility] BUN 17 6 - 19 mg/dL [facility] CREATININE 0.90 0.5 - 1.5 mg/dL [facility] GLUCOSE 95 70 - 99 mg/dL [facility] ALBUMIN 3.5(L) 3.9 - 4.8 g/dL [facility] TOTAL PROTEIN 7.2 6.5 - 8.0 g/dL [facility] CALCIUM 9.1 8.4 - 10.3 mg/dL [facility] ALKALINE PHOSPHATASE 60 39 - 117 U/L [facility] TOTAL BILIRUBIN 0.5 0.0 - 1.2 mg/dL [facility] AST 33 0 - 37 U/L [facility] ALT 39 0 - 40 U/L [facility] GLOBULIN 3.7 1 - 4.8 g/dL [facility] EGFR 102 >59 mL/min/1.7 3m2 [facility] Comment:Estimated glomerular filtration rate calculated using the CKD-EPI refit equation. ANION GAP 16 10 - 20 mmol/L [facility] Blood 02/15/2022 5:31 AM EDT 02/15/2022 5:48 AM EDT Rayne Kirkland DO, MPH LAB BLOOD ORDER SHAUN Final Result [facility] [address] [place] [address] from Last 3 Months or Most Recently Relevant to Health Maintenance [facility] C[facility] PPO Member Subscriber Plan / Payer (Ef fective 2024-Present) Name:Ladonna Pope Relation to Subscriber:Self Name:Ladonna Pope Payer ID:[id number] (NA) Type:PPO Address: [place] [id number] [facility] HMO POS CIGNA PPO [facility] [place]MO [place] [address] [address] [place] [address] HMO POS [facility] HMO POS CIGNA PPO [facility] HMO POS [facility] HMO POS CIGNA PPO [facility] HMO POS CIGNA PPO [facility] C[facility] PPO Member Subscriber Plan / Payer (Ef fective 2024-Present) Name:Ladonna Pope Relation to Subscriber:Self Name:Ladonna Pope Payer ID:[id number] (NAIC) Type:PPO Address: [place] [id number] Advance Directives For more information, please contact: [phone] (9AM - 5PM [facility], Saturday-Saturday) * Full Code (Latest Code Status on File) Date Activated Date Inactivated Comments 02/13/2022 5:49 PM Question Answer Comments Code Status Confirmed With: Patient Care Teams Park Services Specialist Relationship Specialty Start Date End Date Tr Shah MD [address] [place] [phone] [email or web address] PCP - General Family Medicine 12/09/24 Additional Source Comments The information contained in this document represents components of the legal health record. It is not the complete legal health record.[facility]
--- OUTSIDE RECORDS SUMMARY | 2025-01-08 14:21 | XMS_ITS | Encounter Summary ---
Author Organization [facility] Address [address] [place] [address] Phone Care Team Providers Care Media Services Specialist Name Role Phone Tr Shah MD Primary Care Provider [phone] Tr Shah MD Primary Care Provider [phone] Encounter Details Date Type Department Care Team (Late st Contact Info) Description 07/29/2017 Procedure Pass [facility], Ct Scan - [address] [address] Social History Tobacco Use Types Packs/Day Years [...] on filedocumented in this encounter Care Teams Media Services Specialist Relationship Specialty Start Date End Date Tr Shah MD [email or web address] PCP - General Family Medicine 02/13/22 12/08/24 Tr Shah MD [address] [place] [phone] [email or web address] PCP - General Family Medicine 12/09/24 documented as of this encounter Additional Source Comments The information contained in this document represents components of the legal health record. It is not the complete legal health record.[facility]
--- OUTSIDE RECORDS SUMMARY | 2025-01-08 14:21 | XMS_ITS | Encounter Summary ---
Author Organization [facility] Address [address] [place] [address] Phone Care Team Providers Care Nuclear Weapons Custodian Name Role Phone Tr Shah MD Primary Care Provider [phone] Tr Shah MD Primary Care Provider [phone] Encounter Details Date Type Department Care Team (Late st Contact Info) Description 07/29/2017 Ancillary Orders Virtual Department [address] [place] [address] Jasen Chavez MD [address] [place] [phone] [email or web address] Urinary tract infection without hematuria, site [...] sent to Dr. Chavez's service via the dental front office assistant on afternoon of dictation. TOTAL CTDIvol: 59.0 [...] is sent toDr. Chavez's service via the dental front office assistant on afternoon of dictation. TOTAL CTDIvol: 59.0 mGy POS - [id number] Edited by: Yazmin Jimenes on 07/31/2017 1:43 PM Jasen Chavez MD IMG CT ABD/PELVIS Final Result documented in this encounter Visit Diagnoses Diagnosis Urinary tract infection without hematuria, site unspecified Urinary tract infection without hematuria, site unspecified documented in this encounter Care Teams Nuclear Weapons Custodian Relationship Specialty Start Date End Date Tr Shah MD [email or web address] PCP - General Family Medicine 02/13/22 12/08/24 Tr Shah MD [address] [place] [phone] [email or web address] PCP - General Family Medicine 12/09/24 documented as of this encounter Additional Source Comments The information contained in this document represents components of the legal health record. It is not the complete legal health record.[facility]
--- OUTSIDE RECORDS SUMMARY | 2025-01-08 14:21 | XMS_ITS | Encounter Summary ---
Author Organization 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 It is not the complete legal health record.[facility]
== END 2025-01-08 12:58 | disposition home or self-care (01) ==
LOC: HO.XRAY 12:57
PROVIDERS: PCP Nurse Practitioner; Visit Provider Urology
DX: L98.8 Other specified disorders of the skin and subcutaneous tissue (principal); N32.1 Vesicointestinal fistula
CPT/HCPCS: 51600; 74455; Q9958

== ENCOUNTER → 2025-01-08 12:58 | Outpatient (BNV) | payer OTHER, SELFPAY | PROVIDERS: PCP Nurse Practitioner; Visit Provider Radiology Diagnostic Radiology | DX: N32.1 Vesicointestinal fistula (principal) | CPT/HCPCS: 51600; 74455 ==

== ENCOUNTER 2025-01-10 20:30 | Inpatient (IN) | payer OTHER, SELFPAY ==
[2025-01-10] VITALS (15 sets, daily range): BP systolic 75–100; BP diastolic 46–68; PULSE 74–149; RESP 20–28; TEMP 36.7–37.2; O2SAT 77–98; BMI 31.1; BMI 32.3
--- NOTE | ~2025-01-10 | XR_ITS ---
CLINICAL HISTORY: sepsis 1 view chest x-ray Comparison: None provided Findings: No consolidation or effusion. Normal size heart. No acute fracture. IMPRESSION: 1. No acute findings. This document has been electronically signed by: Maria Elena Arevalo MD on 01/10/2025 22:13:06
--- NOTE | ~2025-01-10 | CT_ITS ---
CLINICAL HISTORY: Septic shock, known bladder leak CT abdomen and pelvis with contrast Comparison: CT/SD/SR - CT ABDOMEN PELVIS WITH IV CONTRAST - 12/11/24 11:26 EDT Findings: LIMITED CHEST: Linear atelectasis at lung bases. LIVER: No focal liver lesion. BILIARY: No gallbladder wall thickening, radiopaque stone, or ductal dilatation. PANCREAS: No mass or ductal dilatation. SPLEEN: No splenomegaly. KIDNEYS: No hydronephrosis or radiopaque stone. Bilateral perinephric stranding. ADRENALS: No nodule. VASCULAR: No aneurysm. RETROPERITONEUM: No lymphadenopathy or mass. BOWEL/MESENTERY: Postsurgical changes of the colon with chayo's pouch and left lower quadrant colostomy. Colonic diverticulosis. Mesenteric stranding/surgical change in the pelvis. ABDOMINAL WALL: Postsurgical changes of the anterior abdominal wall. No organized fluid collection. URINARY BLADDER: Severe thickening of the urinary bladder with Bowman catheter in place. PELVIC NODES: No pelvic lymphadenopathy. PELVIC ORGANS: Normal for age. BONES: No acute fracture. OTHER: Negative. IMPRESSION: Postsurgical changes of the colon with left lower quadrant colostomy in place. Moderate mesenteric stranding versus postsurgical changes in the pelvis. No organized fluid collection or abscess. Severe thickening of the bladder wall, suspicious for infectious or inflammatory process. This document has been electronically signed by: Maria Elena Arevalo MD on 01/11/2025 01:38:24
--- NOTE | 2025-01-10 20:33 | ED.GENADULT ---
HPI - General Adult General Chief complaint: Fever Stated complaint: fever (?UTI) Time Seen by Provider: 01/10/25 20:50 Source: patient and family Mode of arrival: ambulatory Limitations: no limitations History of Present Illness ED Provider: Dr. Shantal Leavitt HPI narrative: 54-year-old male with history of colovesicular fistula recent partial colectomy and fistula repair at the end of November status post Chicas catheter insertion for bladder decompression due to bladder leak presenting with generalized weakness, low-grade fever, malaise and fatigue ongoing for the last couple of days. Patient reports fever as high as 101? at home. Took Tylenol at home around 5:00 p.m. this evening. Admits that he has been feeling weak for the last several days. Some associated dizziness but no syncope. Denies abdominal pain, changes in his colostomy output, nausea or vomiting. Denies cough or cold-type symptoms. Admits that he was just discharged from the hospital about 2 weeks ago. After surgery he had a short course of antibiotics but has since completed those. Chicas catheter has been in place since the surgery due to bladder leak each time they check, last checked this past week. He is scheduled to have his Chicas catheter replaced later this week. Colorectal surgeon: Dr. Serrano Urologist: Dr. Spence Related Data Home Medications ?Medication ?Instructions ?Recorded ?Confirmed Lactobacillus rhamnosus GG 10 1 cap PO DAILY 12/11/24 12/30/24 billion cell capsule (Culturelle) ascorbic acid (vitamin C) 500 mg 500 mg PO DAILY 12/11/24 12/30/24 tablet (Vitamin C) ibuprofen 200 mg tablet 200 - 800 mg PO Q6H PRN Pain 12/11/24 12/30/24 Previous Rx's ?Medication ?Instructions ?Recorded phenazopyridine 200 mg tablet 200 mg PO DAILY PRN pain 12 days 12/31/24 #12 tabs solifenacin 5 mg tablet (Vesicare) 5 mg PO DAILY #30 tabs 12/31/24 levofloxacin 500 mg tablet 500 mg PO DAILY 7 days #7 tabs 01/10/25 Allergies Allergy/AdvReac Type Severity Reaction Status Date / Time No Known Allergies Allergy Verified 01/10/25 20:43 Review of Systems Review of Systems: as per HPI, full review of systems performed and negative but for the above mentioned pertinent positives and negatives. [facility] Past Medical History Medical History Abdominopelvic abscess Dysuria History of diverticulosis Fistula No known health problems Surgical History Hx of colonoscopy No history of previous surgery Social History Social History Household Members: Spouse Housing: House Do you presently have visiting nurse or other home services: No Patient Tobacco Use Status: Former Tobacco user Smoked in Last 30 Days: No e-Cigarette/Vaping Use: Never Used Use of substances other than those prescribed or required for medical reasons: No Advance Directives: Yes Advance Directives on File: Yes Advance Directives Date on File: 12/11/24 service: No Physical Exam ED Exam Exam: GENERAL: Ill-Appearing, appears uncomfortable. SKIN: Normal skin color for ethnicity, warm, dry, no rashes noted. HEENT:? Normocephalic, atraumatic, no stridor, dry mucous membranes, dentition intact, EOMI. NECK: Soft, supple, full ROM, midline structures nontender, no step-offs, no deformities, no lymphadenopathy. CHEST: Heart regular tachycardia, no murmurs, symmetric chest rise and fall. PULMONARY: Clear to auscultation bilaterally, diminished at the bases, no labored breathing, no wheezes/rhales/rhonchi. ABDOMINAL: Soft, nondistended, nontender, quiet bowel sounds in all quadrants, ostomy in place LLQ, no erythema, no output in bag currently : Deferred. MUSCULOSKELETAL: Normal tone, full range of motion, no deformities, no peripheral edema. NEURO: Alert and oriented x3, CN II through XII intact, equal strength and sensation bilateral upper and lower extremities, no focal neurologic deficits.? PSYCHIATRIC: Flat affect, fluid speech, good eye contact and appropriate demeanor. Vital Signs: Vital Signs - 24 hr 01/10/25 20:32 01/10/25 21:07 01/10/25 21:10 Temperature 98.1 F 98.5 F Pulse Rate 149 H 112 H 110 H Respiratory Rate 20 23 H 20 Blood Pressure 89/68 L 80/53 L 75/46 L Pulse Oximetry 98 94 94 Oxygen Delivery Method Room Air Room Air Room Air 01/10/25 21:18 01/10/25 21:24 01/10/25 21:36 Temperature Pulse Rate 113 H 105 H 101 H Respiratory Rate 26 H Blood Pressure 100/51 L 88/56 L 91/55 L Pulse Oximetry 94 Oxygen Delivery Method Room Air 01/10/25 21:56 01/10/25 22:02 01/10/25 22:26 Temperature 98.9 F Pulse Rate 94 93 92 Respiratory Rate 28 H 23 H Blood Pressure 86/51 L 87/53 L 89/54 L Pulse Oximetry 95 93 Oxygen Delivery Method Room Air Room Air BMI result Body Mass Index 31.1 Course Course Course Narrative: Suzanne Martino REPLENISHMENT BUYER 01/10 2030 This is a rapid medical exam. Deferred additional HPI, ROS, PE to primary provider. 54 yo male here with complaints of urinary frequency/urgency x 1 week on pyridium, had fever 101 today (took APAP GLASS OR MIRROR INSPECTOR). No abdominal pain, back pain or vomiting. Has history of fistula, possibly with history of perforation/abscess, prior admission and sounds like possibly rectovesicular fistula with recent admit for diverticulitis, had cysto on 12/15 with urology here and has had chicas in place since. Will obtain labs including blood cultures, lactic acid, viral testing, UA, EKG Vitals in triage show tachycardia with HR >140 and hypotension. Charge nurse notifed of sepsis alert. NS 30cc/kg (Patient is obese, IBW used) and antibiotics ordered. Reevaluation(s) Reevaluation #1: Blood pressure remains low, 78/54. Patient states he feels ok otherwise. Denies dizziness or chest pain. 30 cc/kg fluid bolus is currently infusing. He received a dose of IV Rocephin from triage and will be given a dose of vancomycin to broaden his coverage given his lidya sepsis. His white blood cell count is 30.8 bandemia of 31%. He also has a kidney injury with a creatinine of 1.48, baseline was 0.74 on 12/17/2024. Total bilirubin also slightly elevated at 1.3, baseline of 0.6 on 12/11/2024. His lactic acid level is only 1.8 though. Treating as sepsis, potential septic shock. Once his fluids have infused, we will reassess his blood pressure. If he is still low after 30 minutes, we will start norepinephrine. I discussed the patient's condition at length with him and his . He understands that he is critically ill and may need the ICU tonight. Anticipate admission. Likely source of sepsis is urine. He is requesting something for anxiety in the setting of having his Chicas catheter changed. He is very anxious about this. If his blood pressure response, we will give him a dose of Versed. Time: 21:29 Reevaluation #2: Levophed initiated. Patient will have his Chicas catheter exchanged after a dose of Versed. We will admit to ICU. Case discussed with Dr. Johnson who agrees with plan for admission to the ICU. Admitted in critical condition. Time: 22:48 Medications Administered Generic Name Dose Route Start Last Admin Trade Name Freq PRN Reason Stop Dose Admin Vancomycin HCl 2,000 mg in 500 mls @ 250 mls/hr 01/10/25 21:37 01/10/25 21:46 Vancomycin/Ns IV 01/10/25 23:36 250 mls/hr ONCE ONE Administration Discontinued Medications Generic Name Dose Route Start Last Admin Trade Name Freq PRN Reason Stop Dose Admin Ceftriaxone Sodium 2 gm 01/10/25 20:38 01/10/25 21:04 Ceftriaxone Sodium 2 Gm Vial IVPUSH 01/10/25 20:39 2 gm ONCE ONE Administration Sodium Chloride 2,328 mls @ 2,328 mls/hr 01/10/25 20:43 01/10/25 21:57 Ns IV 01/10/25 21:42 Infused .Q1H STA Infusion Acetaminophen 1,000 mg in 100 mls @ 400 mls/hr 01/10/25 21:11 01/10/25 21:47 Ofirmev IV 01/10/25 21:25 Infused ONCE ONE Infusion Medical Decision Making Medical Decision Making MDM Narrative: Patient presents with complaints of fever, malaise. Differential diagnosis is incredibly broad but SBI, meningitis, sepsis, serious skin infection, or other emergent etiologies certianly considered.? Less emergent diagnoses such as viral infection also considered.? Likely source for sepsis would be urine given recent surgery. This patient is non toxic appearing though somewhat pale. Differential Diagnosis Differential Diagnoses: The differential diagnosis associated with the presentation includes (as above) Admission/Observation Consideration of admission/observation: Escalation of care including admission/observation considered Consult Healthcare Provider Management of the patient was discussed with: Moveman (ICU) Lab Data MDM Lab Attestation statement: I reviewed the patient's lab results. 01/10/25 21:00 01/10/25 21:00 Labs: Lab Results 01/10/25 Range/Units 21:00 WBC 30.8 H* (4.8-10.8) X10*3/uL RBC 4.04 L (4.60-5.80) X10*6/uL Hgb 12.7 L (14.0-18.0) g/dl Hct 37.2 L (42.0-52.0) % MCV 92.1 (80.0-98.0) fL MCH 31.4 (27.0-33.0) pg MCHC 34.1 (31.0-36.0) g/dl RDW 12.5 (11.0-16.0) % Plt Count 379 D (160-400) X10*3/uL MPV 10.5 (9.4-12.4) fL Immature Gran % (Auto) Cancelled Neut % (Auto) Cancelled Lymph % (Auto) Cancelled [place] % (Auto) Cancelled Eos % (Auto) Cancelled Baso % (Auto) Cancelled Lymph # (Auto) Cancelled [place] # (Auto) Cancelled Eos # (Auto) Cancelled Baso # (Auto) Cancelled Abs Immat Gran (auto) Cancelled Absolute Neuts (auto) Cancelled Absolute Nucleated RBC 0.000 (0.0-0.012) X10*3/uL Nucleated RBC % (auto) 0.0 (0.0-0.2) /100WBC Neutrophils % (Manual) 65 (45-73) % Band Neutrophils % 31 H (3-5) % Monocytes % (Manual) 4 (2-11) % Abs Neuts (Manual) 29.6 H (2.0-8.3) X10*3/uL Monocytes # (Manual) 1.2 (0.1-1.2) X10*3/uL Toxic Vacuolation PRESENT Platelet Estimate NORMAL (NORMAL) Plt Morphology Comment NORMAL RBC Morphology NORMAL Lucian Cells 1+ (0-2) /OIF Sodium 133 L (135-145) mmol/L Potassium 4.5 (3.3-5.1) mmol/L Chloride 103 (96-108) mmol/L Carbon Dioxide 20 L (22-29) mmol/L Anion Gap 15 (12-20) BUN 27 H (9-16) mg/dL Creatinine 1.48 H (0.5-1.4) mg/dL Estim Creat Clear Calc 69.4 Estimated GFR 49 Random Glucose 123 H (60-115) mg/dL Lactic Acid 1.8 (0.5-2.0) mmol/L Calcium 10.2 D (8.4-10.2) mg/dL Total Bilirubin 1.3 H (0.0-1.0) mg/dL Direct Bilirubin 0.6 H (0.0-0.5) mg/dL AST 19 (5-37) U/L ALT 13 (0-40) U/L Alkaline Phosphatase 91 (39-117) U/L Troponin I High Sens 5.8 (<3.5-35.0) ng/L Total Protein 7.9 (6.5-8.0) g/dL Albumin 3.9 (3.5-5.0) g/dL COVID-19 (CANDY) Negative (Negative) COVID-19 Clin Com See Note Influenza Type A (MONA) Negative (Negative) Influenza Type B (MONA) Negative (Negative) Influenza A & B Note See Note Independent Interpretation I performed an independent interpretation of an: EKG and Plain X-Ray Interpretation: My independent interpretation of the ECG reveals normal sinus tachycardia with rate of 134, leftward axis, normal intervals, no ST elevations or depressions to suggest ischemic changes, no previous for comparison. My independent interpretation of the chest x-ray reveals no consolidations, pulmonary edema, pleural effusion, pneumothorax, obvious bony abnormalities. Radiology Impression Discussion of test interpretation with radiology: I have reviewed the radiologist's reading. Independent Historian Clinical information obtained from an independent historian. History obtained from or confirmed by: Spouse External Record Review External record reviewed: Inpatient record and Office record Prescription Management I considered prescription management with: Antibiotic Chronic Conditions Patient?s care impacted by: Other (Colovesicular fistula) Critical Care Time Critical Care Time Critical Care Time: Yes Total Critical Care Time: 45 Attestation: CRITICAL CARE TIME: 45 minutes of critical care time was spent in direct patient care at the bedside or in the immediate area with this patient. Critical care was necessary to treat or prevent imminent or life-threatening deterioration of the following conditions septic shock due to likely UTI status post colovesicular fistula repair with bladder leak. This patient is high risk for decompensation and/or . This time was spent assessing and managing the patient, interpreting labs and imaging, coordinating care with other medical providers, gathering history from either the patient, their representatives, EMS or chart review, and discussing management with ICU team. Discharge Plan Discharge Patient Disposition: Admitted As Inpatient Print Language: German
--- NOTE | 2025-01-10 20:37 | ECG_ITS ---
Test Reason : fever weakness Blood Pressure : */* mmHG Vent. Rate : 134 BPM Atrial Rate : 134 BPM P-R Int : 140 ms QRS Dur : 70 ms QT Int : 268 ms P-R-T Axes : 22 -19 15 degrees QTcB Int : 400 ms Sinus tachycardia Otherwise normal ECG No previous ECGs available Referred By: Suzanne Martino Electronically Signed By: Michael Wilson
[2025-01-10] MEDS: 0.9 % Sodium Chloride 2,328 ML 2328 ML IV (21:04)
--- NOTE | 2025-01-10 21:10 | PC.NURSE ---
Pt arrives to room hypotensive and tachycardic, pressure 75/46, NSS bolus running on pressure bags. MD aware and brought to bedside.
[2025-01-10 21:13] LABS: Hematocrit 37.2 % (42.0-52.0); Hemoglobin 12.7 g/dl (14.0-18.0); Mean Corpuscular HGB Conc 34.1 g/dl (31.0-36.0); Mean Corpuscular Hemoglobin 31.4 pg (27.0-33.0); Mean Corpuscular Volume 92.1 fL (80.0-98.0); NRBC Abs Auto 0.000 X10*3/uL (0.0-0.012); NRBC Pct Auto 0.0 /100WBC (0.0-0.2); Platelet Count 379 X10*3/uL (160-400); Red Blood Count 4.04 X10*6/uL (4.60-5.80)
[2025-01-10 21:17] LABS: White Blood Count 30.8 X10*3/uL (4.8-10.8)
--- OUTSIDE RECORDS SUMMARY | 2025-01-10 21:26 | XMS_ITS | Encounter Summary ---
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 Not on file documented as of this encounter Functional Status * Calculated C-SSRS Risk Score (Lifetime/Recent) Answer Date of Assessment Author No Risk Indicated 02/13/2022 8:23 AM EDT Macy Verduzco RN * [place] Suicide Severity Rating Scale (Screener/Recent Self-Report) Question [...] on filedocumented in this encounter Care Teams Automotive Collision Repair Instructor Relationship Specialty Start Date End Date Tr Shah MD [email or web address] PCP - General Family Medicine 02/13/22 12/08/24 Tr Shah MD [address] [place] [phone] [email or web address] PCP - General Family Medicine 12/09/24 documented as of this encounter Additional Source Comments The information contained in this document represents components of the legal health record. It is not the complete legal health record.[facility]
--- OUTSIDE RECORDS SUMMARY | 2025-01-10 21:26 | XMS_ITS | Clinical Summary ---
Author Organization 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 Not [...] Special Requests None 12/09/2024 6:20 PM EDT [facility] Urine Culture >100,000 colony forming units per mL ESCHERICHIA COLI(A) 12/11/2024 8:55 AM EDT [facility] Urine (Urine) 12/09/2024 6:2 0 PM [...] LANDRY METHOD <=1: Susceptible Comment: Bri Baires SECURITY RISK ANALYST MICROBIOLOGY - GENERAL ORDE ANA ROSA Final Result [address] [id number] * (ABNORMAL) Comprehensive metabolic panel (02/15/2022 5:31 AM EDT) SODIUM 139 133 - 146 mmol/L [facility] POTASSIUM 4.4 3.3 - 5.1 mmol/L [facility] CHLORIDE 102 96 - 108 mmol/L [facility] CO2 25 21 - 35 mmol/L [facility] BUN 17 6 - 19 mg/dL [facility] CREATININE 0.90 0.5 - 1.5 mg/dL [facility] GLUCOSE 95 70 - 99 mg/dL [facility] ALBUMIN 3.5(L) 3.9 - 4.8 g/dL [facility] TOTAL PROTEIN 7.2 6.5 - 8.0 g/dL [facility] CALCIUM 9.1 8.4 - 10.3 mg/dL [facility] ALKALINE PHOSPHATASE 60 39 - 117 U/L [facility] TOTAL BILIRUBIN 0.5 0.0 - 1.2 mg/dL [facility] AST 33 0 - 37 U/L [facility] ALT 39 0 - 40 U/L [facility] GLOBULIN 3.7 1 - 4.8 g/dL [facility] EGFR 102 >59 mL/min/1.7 3m2 [facility] Comment:Estimated glomerular filtration rate calculated using the CKD-EPI refit equation. ANION GAP 16 10 - 20 mmol/L [facility] Blood 02/15/2022 5:31 AM EDT 02/15/2022 5:48 AM EDT Rayne Kirkland DO, MPH LAB BLOOD ORDER SHAUN Final Result [facility] [address] [place] [address] from Last 3 Months or Most Recently Relevant to Health Maintenance Insurance [facility] [employer] PPO Member Subscriber Plan / Payer (Ef fective 2024-Present) Name:Ladonna Pope Relation to Subscriber:Self Name:Ladonna Pope Payer ID:[id number] (NA) Type:PPO Address: [place] [id number] [facility] HMO POS CIGNA PPO [facility] HMO [place] [address] [place] [address] HMO POS [facility] HMO POS CIGNA PPO [facility] H[facility] POS [facility] HMO POS CIGNA PPO [facility] HMO POS CIGNA PPO [facility] [employer] PPO Member Subscriber Plan / Payer (Ef fective 2024-Present) Name:Ladonna Pope Relation to Subscriber:Self Name:Ladonna Pope Payer ID:[id number] (NAIC) Type:PPO Address: [place] [id number] Advance Directives For more information, please contact: [phone] (9AM - 5PM [facility], Saturday-Saturday) * Full Code (Latest Code Status on File) Date Activated Date Inactivated Comments 02/13/2022 5:49 PM Question Answer Comments Code Status Confirmed With: Patient Care Teams Mainspring Winder And Oiler Relationship Specialty Start Date End Date Tr Shah MD [address] [place] [phone] [email or web address] PCP - General Family Medicine 12/09/24 Additional Source Comments The information contained in this document represents components of the legal health record. It is not the complete legal health record.[facility]
--- OUTSIDE RECORDS SUMMARY | 2025-01-10 21:26 | XMS_ITS | Encounter Summary ---
Author Organization [facility] Address [address] [place] [address] Phone Care Team Providers Care Hat Blocker Name Role Phone Tr Shah MD Primary Care Provider [phone] Tr Shah MD Primary Care Provider [phone] Encounter Details Date Type Department Care Team (Late st Contact Info) Description 07/29/2017 Ancillary Orders Virtual Department [address] [place] [address] Jasen Chavez MD [address] [place] [phone] [email or web address] Urinary tract infection without hematuria, site unspecified [...] sent to Dr. Chavez's service via the tax compliance manager on afternoon of dictation. TOTAL CTDIvol: 59.0 [...] is sent toDr. Chavez's service via the tax compliance manager on afternoon of dictation. TOTAL CTDIvol: 59.0 mGy POS - [id number] Edited by: Yazmin Jimenes on 07/31/2017 1:43 PM Jasen Chavez MD IMG CT ABD/PELVIS Final Result documented in this encounter Visit Diagnoses Diagnosis Urinary tract infection without hematuria, site unspecified Urinary tract infection without hematuria, site unspecified documented in this encounter Care Teams Hat Blocker Relationship Specialty Start Date End Date Tr Shah MD [email or web address] PCP - General Family Medicine 02/13/22 12/08/24 Tr Shah MD [address] [place] [phone] [email or web address] PCP - General Family Medicine 12/09/24 documented as of this encounter Additional Source Comments The information contained in this document represents components of the legal health record. It is not the complete legal health record.[facility]
--- OUTSIDE RECORDS SUMMARY | 2025-01-10 21:26 | XMS_ITS | Encounter Summary ---
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 Not on file documented as of this encounter Functional Status * Calculated C-SSRS Risk Score (Lifetime/Recent) Answer Date of Assessment Author No Risk Indicated 02/13/2022 8:23 AM EDT Macy Verduzco RN * [place] Suicide Severity Rating Scale (Screener/Recent Self-Report) Question [...] on filedocumented in this encounter Care Teams Community Center Worker Relationship Specialty Start Date End Date Tr Shah MD [email or web address] PCP - General Family Medicine 02/13/22 12/08/24 Tr Shah MD [address] [place] [phone] [email or web address] PCP - General Family Medicine 12/09/24 documented as of this encounter Additional Source Comments The information contained in this document represents components of the legal health record. It is not the complete legal health record.[facility]
--- OUTSIDE RECORDS SUMMARY | 2025-01-10 21:26 | XMS_ITS | Encounter Summary ---
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 It is not the complete legal health record.[facility]
--- OUTSIDE RECORDS SUMMARY | 2025-01-10 21:26 | XMS_ITS | Encounter Summary ---
Author Organization [facility] Address [address] [place] [address] Phone Care Team Providers Care Coining Press Operator Name Role Phone Tr Shah MD Primary Care Provider [phone] Tr Shah MD Primary Care Provider [phone] Encounter Details Date Type Department Care Team (Late st Contact Info) Description 07/29/2017 Procedure Pass [facility], Ct Scan - [address] [address] Social History Tobacco Use Types Packs/Day Years [...] on filedocumented in this encounter Care Teams Coining Press Operator Relationship Specialty Start Date End Date Tr Shah MD PCP - General Family Medicine 02/13/22 12/08/24 Tr Shah MD [address] [place] [phone] [email or web address] PCP - General Family Medicine 12/09/24 documented as of this encounter Additional Source Comments The information contained in this document represents components of the legal health record. It is not the complete legal health record.[facility]
[2025-01-10 21:27] LABS: Alanine Aminotransferase 13 U/L (0-40); Albumin Level 3.9 g/dL (3.5-5.0); Alkaline Phosphatase 91 U/L (39-117); Anion Gap 15 (12-20); Aspartate Amino Transferase 19 U/L (5-37); Blood Urea Nitrogen 27 mg/dL (9-16); Calcium 10.2 mg/dL (8.4-10.2); Carbon Dioxide 20 mmol/L (22-29); Chloride 103 mmol/L (96-108); Creatinine Clr Calc Pharmacy 69.4; Estimated Glomerular Filt Rate 49; Potassium 4.5 mmol/L (3.3-5.1); Sodium 133 mmol/L (135-145); Total Protein 7.9 g/dL (6.5-8.0)
[2025-01-10 21:29] LABS: COVID-19 Test Negative (Negative); IDNOW Serial# 58CA691E
[2025-01-10 21:30] LABS: IDNOW Serial# 55D5AD1C; Influenza B2 Negative (Negative)
[2025-01-10 21:34] LABS: Troponin-I High Sensitivity 5.8 ng/L (<3.5-35.0)
[2025-01-10 21:40] LABS: Neutrophils Percent Manual 65 % (45-73)
[2025-01-10 21:42] LABS: Band Neutrophils Percent 31 % (3-5); Monocytes Absolute Manual 1.2 X10*3/uL (0.1-1.2); Monocytes Percent Manual 4 % (2-11); Neutrophils Absolute Manual 29.6 X10*3/uL (2.0-8.3)
[2025-01-10 21:44] LABS: RBC Morphology NORMAL
[2025-01-10] MEDS: vancomycin/NS 2,000 MG/500 ML PLAST..BAG 250 MG IV (21:46)
[2025-01-10 21:47] LABS: Burr Cells 1+ (0-2) /OIF; Toxic Vacuolation PRESENT
[2025-01-10 22:46] LABS: VBG HCO3 15 mmol/L (22-26); VBG O2 % Saturation 100.0 %
[2025-01-10 22:50] LABS: Venous Blood Gas Refer to POC result
--- NOTE | 2025-01-10 23:13 | PM.CCHP ---
History of Present Illness Date of Service: 01/10/25 Attending physician on admission: Lázaro Johnson Chief Complaint: General malaise The patient is a 54-year-old male with history of colovesicular fistula recent partial colectomy and fistula repair at the end of November 2024 s/p Bowman catheter insertion for bladder decompression due to bladder leak who presented to the emergency department with generalized weakness, low-grade fever, malaise and fatigue ongoing for the last couple of days. ? Patient reported after surgery he had a short course of antibiotics but has since completed those.? Bowman catheter has been in place since the surgery due to bladder leak each time they check, last checked this past week, has follow up appt with Dr Rhodes tomorrow. ?In the emergency department patient is tachycardic to 150s, hypotensive to systolic of 70s,? remained hypotensive despite fluid resuscitation requiring vasopressor support.?? Laboratory data significant for WBC 30.8? with bandemia, serum bicarb 20, BUN 27, creatinine 1.48, magnesium 1.4 ?Venous gas:? 7.50/ 19/185/15 URINE: ? grossly positive for UTI IMAGING Chest Xray:? no acute findings? ED COURSE:? Patient received 30 mL/kg fluid bolus, acetaminophen 1 g, vancomycin 2 g, and ceftriaxone 2 g Review of Systems Review of Systems: Yes all other systems are reviewed and are negative PMFSH Past Medical History Medical History Abdominopelvic abscess Dysuria History of diverticulosis Fistula No known health problems Surgical History Surgical History Hx of colonoscopy No history of previous surgery Social History Social History Household Members: Family Housing: House Do you presently have visiting nurse or other home services: No Patient Tobacco Use Status: Former Tobacco user e-Cigarette/Vaping Use: Never Used Advance Directives Date on File: 12/11/24 service: No Meds Allergies Allergy/AdvReac Type Severity Reaction Status Date / Time No Known Allergies Allergy Verified 01/10/25 20:43 Active Medications: Current Medications Heparin Sodium (Porcine) (Heparin Sodium,Porcine 5,000 Unit/Ml Vial) 5,000 unit SUBCUT Q8H KAI Vancomycin HCl (Vancomycin/Ns) 2,000 mg in 500 mls @ 250 mls/hr IV ONCE ONE Stop: 01/10/25 23:36 Last Admin: 01/10/25 21:46 Dose: 250 mls/hr Norepinephrine Bitartrate (Levophed) 8 mg in 250 mls @ 0 mls/hr IVCONT .Q0M KAI; Protocol Last Admin: 01/10/25 22:33 Dose: 0.05 mcg/kg/min, 10.13 mls/hr Home Medications ?Medication ?Instructions ?Recorded ?Confirmed ?Last Taken ?Type ibuprofen 200 mg tablet 600 mg PO Q6H PRN Pain 12/11/24 01/11/25 Unknown History acetaminophen 500 mg tablet 500 mg PO Q6H PRN Pain (Scale 01/11/25 01/11/25 Unknown History Score 1-3) melatonin 5 mg tablet 5 mg PO BEDTIME PRN Sleep 01/11/25 01/11/25 Unknown History Physical Exam Exam: Exam: SEPSIS FOCUS EXAM PERFORMED AT?2300 ?General:? Alert oriented x3 no acute distress.? Speaking full sentences.? Speech is well articulated, thought process is coherent.? Following all commands. ?HEENT:? Head is normocephalic, atraumatic, pupils equal round reactive to light accommodation bilaterally.? Extraocular movements appear intact.? Buccal mucosa is dry, Neck is supple without lymphadenopathy. ?Cardiac:? Snius Tachycardia low 100s, S1-S2, no murmurs rubs or gallops. ?Pulmonary:? Clear to auscultation, no wheezes, rales or rhonchi. ?Abdomen:?Midline incision healed with some scabbed areas. colostomy slightly retracted, pink ?Abdomen soft, non-tender, non-distended. Normal bowel sounds. ?Musculoskeletal:? Moving all 4 extremities upon request a major joints, there is no crepitus or tenderness.? The strength is 5/5 bilaterally and throughout all 4 extremities.? Gait not assessed at this point. ?Neurologic:? cranial nerves 2-12 are grossly intact.? No focal deficits noted.Motor strength as above.?? ?Skin:? Intact, no lesions, edema, erythema, clubbing or cyanosis.? No ulcers. Vascular:? 2+ pulses upper and lower extremities distally.? Vital Signs: Vital Signs: Last Vital Signs Temp 98.9 F 01/10/25 22:02 Pulse 83 01/10/25 23:03 Resp 23 H 01/10/25 22:26 BP 97/66 01/10/25 23:03 Pulse Ox 77 L 01/10/25 23:03 O2 Del Method Room Air 01/10/25 22:26 BMI result Body Mass Index 32.3 Results Labs 01/11/25 05:02 01/11/25 05:03 Labs: Laboratory Results - last 24 hr 01/10/25 01/10/25 21:00 22:42 MCV 92.1 MCH 31.4 MCHC 34.1 RDW 12.5 Plt Count 379 D MPV 10.5 Immature Gran % (Auto) Cancelled Neut % (Auto) Cancelled Lymph % (Auto) Cancelled [place] % (Auto) Cancelled Eos % (Auto) Cancelled Baso % (Auto) Cancelled Lymph # (Auto) Cancelled [place] # (Auto) Cancelled Eos # (Auto) Cancelled Baso # (Auto) Cancelled Abs Immat Gran (auto) Cancelled Absolute Neuts (auto) Cancelled Absolute Nucleated RBC 0.000 Nucleated RBC % (auto) 0.0 Neutrophils % (Manual) 65 Band Neutrophils % 31 H Monocytes % (Manual) 4 Abs Neuts (Manual) 29.6 H Monocytes # (Manual) 1.2 Toxic Vacuolation PRESENT Platelet Estimate NORMAL Plt Morphology Comment NORMAL RBC Morphology NORMAL Lucian Cells 1+ (0-2) Smear Tech's Comments VERIFIED VBG pH 7.50 H VBG pCO2 19 VBG pO2 195 VBG HCO3 15 L VBG O2 Saturation 100.0 VBG Base Excess -5.3 Anion Gap 15 Estim Creat Clear Calc 69.4 Estimated GFR 49 Random Glucose 123 H Lactic Acid 1.8 Calcium 10.2 D Phosphorus 2.3 L Total Bilirubin 1.3 H Direct Bilirubin 0.6 H AST 19 ALT 13 Alkaline Phosphatase 91 Troponin I High Sens 5.8 Total Protein 7.9 Albumin 3.9 COVID-19 (CANDY) Negative COVID-19 Clin Com See Note Influenza Type A (MONA) Negative Influenza Type B (MONA) Negative Influenza A & B Note See Note Assessment and Plan (1) Septic shock: Status: Acute (2) Complicated urinary tract infection: Status: Acute (3) BARB (acute kidney injury): Status: Acute (4) Amo-vesical fistula: Status: Acute (5) S/P colostomy: Status: Acute Plan 54-year-old male with history of colovesicular fistula recent partial colectomy and fistula repair at the end of November 2024 s/p Bowman catheter insertion for bladder decompression due to bladder leak? admitted to ICU for septic shock likely from source Neuro:?? ?No acute issues ?Cardiac:?? ?Septic shock: ? despite lactate being normal? patient? has? significant elevation in white count with bandemia,? and now requiring vasopressor support.? Source likely urine is positive for UTI.? but will obtain abdominal CT due to recent Vesicointestinal fistula? with known bladder leak will obtain Abdomen CT.? ? patient was supposed to have a follow-up with Urology tomorrow,? but will place urology consult for patient to be seen in patient.? Follow-up CT results.? ? Continue? empiric antibiotics. Wean off vasopressors as tolerated Pulmonary:? ?No acute issues Renal:? ?BARB nonoliguric:? likely from hypoperfusion from septic shock. Continue to check renal induces and urine output Endo:? ?No occasions GI:?? ?No acute issues ID:? Septic shock:? urine studies positive for UTI.? blood cultures/urine culture obtained and pending. ? Abdominal CT pending for further source.? Received ceftriaxone and vancomycin in the emergency department.? We will continue this treatment empiric antibiotics. Follow final blood cultures result? Heme/Onc:?? ?No acute issues Psych:? ? no acute issues Miscellaneous: ? no acute issues Prophylaxis:? ? subQ heparin ? Critical care time:? X 60 minutes of critical care time ?Code? status: FULL CODE?
[2025-01-10 23:14] LABS: Magnesium 1.4 mg/dL (1.6-2.6)
--- NOTE | 2025-01-10 23:55 | PC.NURSE ---
new chicas placed and documented per order. patient premedicated w/ versed per order, pt tolerated well.
[2025-01-11] VITALS (34 sets, daily range): BP systolic 77–135; BP diastolic 51–83; PULSE 72–110; RESP 13–41; TEMP 36.8–38.6; O2SAT 91–99; BMI 31.9
[2025-01-11 00:04] LABS: Appearance Urine Turbid; Glucose Urine UA Negative (Negative); PH 5.5 (5.0-9.0); Specific Gravity - Urine 1.010 (1.005-1.025); UMIC TRIGGER UACC YES
--- NOTE | 2025-01-11 00:30 | PC.NURSE ---
Patient remains awake and alert. skin pwd, resp even, speaking in full, clear sentences. NSR via tele. BP and map decreased as documented, levo titrated per order.
[2025-01-11] MEDS: iohexoL 350 MG/ML 100 ML INFUS..BTL 85 ML IV (00:49)
[2025-01-11 00:51] LABS: UACC Culture Trigger YES
--- NOTE | 2025-01-11 01:08 | PC.NURSE ---
patient assisted to CT and then to ICU monitored by this RN
[2025-01-11] MEDS: Magnesium Sulfate/H2O 2 GM/50 ML PIGGYBACK IV ×2 (01:22→05:47)
[2025-01-11] MEDS: Potassium Phosphate/NS 15 MMOL/250 ML PLAST..BAG 62.5 MMOL IV (01:25)
[2025-01-11 05:07] LABS: VBG HCO3 19 mmol/L (22-26); VBG O2 % Saturation 93.0 %
[2025-01-11 05:14] LABS: Hematocrit 34.4 % (42.0-52.0); Hemoglobin 11.4 g/dl (14.0-18.0); Mean Corpuscular HGB Conc 33.1 g/dl (31.0-36.0); Mean Corpuscular Hemoglobin 30.8 pg (27.0-33.0); Mean Corpuscular Volume 93.0 fL (80.0-98.0); NRBC Abs Auto 0.000 X10*3/uL (0.0-0.012); NRBC Pct Auto 0.0 /100WBC (0.0-0.2); Platelet Count 337 X10*3/uL (160-400); Red Blood Count 3.70 X10*6/uL (4.60-5.80)
[2025-01-11 05:23] LABS: Venous Blood Gas Refer to POC result
[2025-01-11 05:32] LABS: Alanine Aminotransferase 10 U/L (0-40); Albumin Level 3.3 g/dL (3.5-5.0); Alkaline Phosphatase 77 U/L (39-117); Anion Gap 15 (12-20); Aspartate Amino Transferase 17 U/L (5-37); Blood Urea Nitrogen 26 mg/dL (9-16); Calcium 9.3 mg/dL (8.4-10.2); Carbon Dioxide 18 mmol/L (22-29); Chloride 107 mmol/L (96-108); Creatinine Clr Calc Pharmacy 74.4; Estimated Glomerular Filt Rate 52; Magnesium 1.5 mg/dL (1.6-2.6); Potassium 5.1 mmol/L (3.3-5.1); Sodium 135 mmol/L (135-145); Total Protein 6.8 g/dL (6.5-8.0)
[2025-01-11 05:33] LABS: WBC ABN SCTR FOR CBC 1
[2025-01-11 05:34] LABS: White Blood Count 40.8 X10*3/uL (4.8-10.8)
[2025-01-11 05:40] LABS: Band Neutrophils Percent 23 % (3-5); Lymphocytes Absolute Manual 0.4 X10*3/uL (1.2-4.9); Lymphocytes Percent Manual 1 % (20-40); Monocytes Absolute Manual 1.2 X10*3/uL (0.1-1.2); Monocytes Percent Manual 3 % (2-11); Neutrophils Absolute Manual 39.2 X10*3/uL (2.0-8.3); Neutrophils Percent Manual 73 % (45-73)
[2025-01-11 05:41] LABS: RBC Morphology NOTED
[2025-01-11 05:43] LABS: Burr Cells 1+ (0-2) /OIF; Ovalocytes 1+ (5-14) /OIF; Toxic Vacuolation PRESENT
[2025-01-11 05:58] LABS: INTERNATIONAL NORM RATIO 1.3 (0.9-1.1); Prothrombin Time 15.4 SEC (10.9-12.4)
--- NOTE | 2025-01-11 07:32 | PHA.PROG ---
Admission Date/Time: January 10, 2025 22:48 Indication: INTRA-ABDOMINAL Weight in k.8 kg Adjusted body weight in Kg: [place] body weight in Kg: Obesity Dosing Indication % IBW: Serum Creatinine - Last 168 Hours 01/10/25 01/11/25 21:00 05:03 Creatinine 1.48 H 1.40 Estimated CrCl and GFR - Last 168 Hours 01/10/25 01/11/25 21:00 05:03 Estim Creat Clear Calc 69.4 74.4 Estimated GFR 49 52 Vancomycin Loading Dose: 2000 MG Current Vancomycin Dosing Regimen: 1000 MG Q12H Vancomycin Monitoring using AUC goal of 400 - 600 range with trough as surrogate marker: PIK=442 TROUGH=19.2 Date and Time for next Vancomycin Level to be drawn: 01/12/25 @0700 Pharmacist Comments on Vancomycin Plan: Vancomycin dosing will take advantage of [employer] as a clinical decision support tool that uses Bayesian modeling to calculate individual patient's pharmacokinetic parameters and forecast the patient's drug concentration time course with the target goal AUC 24 range of 400 - 600 mg/L/hr.
[2025-01-11] MEDS: Albumin Human 25 % 100 ML IV ×2 (08:07→14:08)
--- NOTE | 2025-01-11 08:15 | PHA.MEDREC ---
Pharmacy Consult ? Medication Reconciliation Pharmacy has completed the medication reconciliationMed rec complete, spoke with patient's and compared with pharmacy claim history.
--- NOTE | 2025-01-11 08:25 | PM.UROCN ---
History of Present Illness Consult details Consult date: 01/11/25 Narrative: CC: urosepsis Prior Hartmanns procedure Admit ICU with temp 101.5 last night IV abx given Urine positive Blood culture pending Bowman catheter exchanged WBC 30 Will follow Review of Systems Constitutional: Constitutional: Reports as per HPI and Reports no additional constitutional complaints Cardiovascular: Cardiovascular: Reports as per HPI and Reports no additional cardiovascular complaints Respiratory: Respiratory: Reports as per HPI and Reports no additional respiratory complaints Gastrointestinal: Gastrointestinal: Reports as per HPI and Reports no additional gastrointestinal complaints Genitourinary: Genitourinary: Reports as per HPI Musculoskeletal: Musculoskeletal: Reports no additional musculoskeletal complaints and Reports as per HPI Neurologic: Reports system reviewed and no additional complaints, except as documented and Reports as per HPI PMFSH Past Medical History Medical History Abdominopelvic abscess Dysuria History of diverticulosis Fistula No known health problems Surgical History Surgical History Hx of colonoscopy No history of previous surgery Social History Social History Household Members: Family Housing: House Do you presently have visiting nurse or other home services: No Patient Tobacco Use Status: Former Tobacco user Smoked in Last 30 Days: No e-Cigarette/Vaping Use: Never Used Use of substances other than those prescribed or required for medical reasons: No Have you been hit, kicked, punched, or otherwise hurt by someone within the past year? If so, by whom?: No Do you feel safe in your current relationship?: Yes Is there a partner from a previous relationship who is making you feel unsafe now?: No Are you made to feel afraid or neglected: No Advance Directives: Yes Advance Directives on File: Yes Advance Directives Date on File: 12/11/24 Do you have a plan to hurt others: No Plan Recently lost weight without trying: No Nutrition Risks: No Nutritional Risk service: No Meds Allergies Allergy/AdvReac Type Severity Reaction Status Date / Time No Known Allergies Allergy Verified 01/10/25 20:43 Active Medications: Current Medications Ceftriaxone Sodium (Ceftriaxone Sodium 1 Gm Vial) 1 gm IVPUSH Q24H KAI Heparin Sodium (Porcine) (Heparin Sodium,Porcine 5,000 Unit/Ml Vial) 5,000 unit SUBCUT Q8H [facility] Last Admin: 01/11/25 08:07 Dose: 5,000 unit Norepinephrine Bitartrate (Levophed) 8 mg in 250 mls @ 0 mls/hr IVCONT .Q0M [facility]; Protocol Last Titration: 01/11/25 08:22 Dose: 0.07 mcg/kg/min, 14.19 mls/hr Albumin Human (Kedbumin 25 %) 100 mls @ 100 mls/hr IV Q6H [facility] Stop: 01/11/25 14:59 Last Admin: 01/11/25 08:07 Dose: 100 mls/hr Vancomycin HCl 1,000 mg/ (Sodium Chloride) 270 mls @ 270 mls/hr IV Q12H [facility] Pharmacy Consult (Consult Rx Vancomycin Dosing) 1 each MISCELLANE DAILY PRN PRN Reason: Consult order Home Medications ?Medication ?Instructions ?Recorded ?Confirmed ?Last Taken ?Type ibuprofen 200 mg tablet 600 mg PO Q6H PRN Pain 12/11/24 01/11/25 Unknown History acetaminophen 500 mg tablet 500 mg PO Q6H PRN Pain (Scale 01/11/25 01/11/25 Unknown History Score 1-3) melatonin 5 mg tablet 5 mg PO BEDTIME PRN Sleep 01/11/25 01/11/25 Unknown History Physical Exam Vital Signs: Vital Signs: Last Vital Signs Temp 98.2 F 01/11/25 07:59 Pulse 94 01/11/25 08:22 Resp 22 H 01/11/25 07:59 BP 113/79 01/11/25 08:22 Pulse Ox 95 01/11/25 07:59 O2 Del Method Room Air 01/11/25 07:59 BMI result Body Mass Index 31.9 Const: General: cooperative, healthy appearing, comfortable and no acute distress Orientation/consciousness: patient oriented x3 HEENT: Face and sinus: Yes normal facial exam Mouth: moist mucous membranes Neck: Neck: Yes normal visual inspection, Yes full ROM and Yes trachea midline Chest: Chest palpation & inspection: normal inspection of the chest Resp: Effort & Inspection: normal respiratory effort, able to speak in complete sentences and no respiratory distress GI: Inspection: Yes normal to inspection Back/Spine/Pelvis: Cervical Spine: normal cervical lordosis Thoracic/Lumbar Spine: thoracic and lumbar spine normal to inspection Skin: General skin exam: no rashes or lesions noted Neuro: General: patient oriented x3, tone normal and moves all extremities Extrem: General: Yes normal to inspection and Yes capillary refill normal Results Labs 01/11/25 05:02 01/11/25 05:03 Labs: Abnormal lab results 01/10/25 01/10/25 01/10/25 Range/Units 21:00 22:42 23:58 WBC 30.8 H* (4.8-10.8) X10*3/uL RBC 4.04 L (4.60-5.80) X10*6/uL Hgb 12.7 L (14.0-18.0) g/dl Hct 37.2 L (42.0-52.0) % Band Neutrophils % 31 H (3-5) % Lymphocytes % (Manual) (20-40) % Abs Neuts (Manual) 29.6 H (2.0-8.3) X10*3/uL Lymphocytes # (Manual) (1.2-4.9) X10*3/uL PT (10.9-12.4) SEC INR (0.9-1.1) VBG pH 7.50 H (7.32-7.43) VBG HCO3 15 L (22-26) mmol/L Sodium 133 L (135-145) mmol/L Carbon Dioxide 20 L (22-29) mmol/L BUN 27 H (9-16) mg/dL Creatinine 1.48 H (0.5-1.4) mg/dL Random Glucose 123 H (60-115) mg/dL Phosphorus 2.3 L (2.7-4.5) mg/dL Magnesium 1.4 L* (1.6-2.6) mg/dL Total Bilirubin 1.3 H (0.0-1.0) mg/dL Direct Bilirubin 0.6 H (0.0-0.5) mg/dL Albumin (3.5-5.0) g/dL Urine Protein 30 (1+) H (Neg-Trace) mg/dL Urine Blood Large (3+) H (Negative) Urine Nitrite Positive H (Negative) Ur Leukocyte Esterase Large (3+) H (Negative) Urine RBC 11-20 H (0-2) /HPF 01/11/25 01/11/25 01/11/25 Range/Units 05:02 05:03 05:04 WBC 40.8 H* (4.8-10.8) X10*3/uL RBC 3.70 L (4.60-5.80) X10*6/uL Hgb 11.4 L (14.0-18.0) g/dl Hct 34.4 L (42.0-52.0) % Band Neutrophils % 23 H (3-5) % Lymphocytes % (Manual) 1 L (20-40) % Abs Neuts (Manual) 39.2 H (2.0-8.3) X10*3/uL Lymphocytes # (Manual) 0.4 L (1.2-4.9) X10*3/uL PT 15.4 H (10.9-12.4) SEC INR 1.3 H (0.9-1.1) VBG pH 7.47 H (7.32-7.43) VBG HCO3 19 L (22-26) mmol/L Sodium (135-145) mmol/L Carbon Dioxide 18 L (22-29) mmol/L BUN 26 H (9-16) mg/dL Creatinine (0.5-1.4) mg/dL Random Glucose (60-115) mg/dL Phosphorus 2.0 L (2.7-4.5) mg/dL Magnesium 1.5 L (1.6-2.6) mg/dL Total Bilirubin 1.1 H (0.0-1.0) mg/dL Direct Bilirubin (0.0-0.5) mg/dL Albumin 3.3 L (3.5-5.0) g/dL Urine Protein (Neg-Trace) mg/dL Urine Blood (Negative) Urine Nitrite (Negative) Ur Leukocyte Esterase (Negative) Urine RBC (0-2) /HPF Short CBC 01/10/25 01/11/25 Range/Units 21:00 05:02 WBC 30.8 H* 40.8 H* (4.8-10.8) X10*3/uL Hgb 12.7 L 11.4 L (14.0-18.0) g/dl Hct 37.2 L 34.4 L (42.0-52.0) % Plt Count 379 D 337 (160-400) X10*3/uL BMP 01/10/25 01/11/25 21:00 05:03 Sodium 133 L 135 Potassium 4.5 5.1 Chloride 103 107 Carbon Dioxide 20 L 18 L BUN 27 H 26 H Creatinine 1.48 H 1.40 Calcium 10.2 D 9.3 D Liver Function 01/10/25 01/11/25 Range/Units 21:00 05:03 Total Bilirubin 1.3 H 1.1 H (0.0-1.0) mg/dL Direct Bilirubin 0.6 H (0.0-0.5) mg/dL AST 19 17 (5-37) U/L ALT 13 10 (0-40) U/L Alkaline Phosphatase 91 77 (39-117) U/L Albumin 3.9 3.3 L (3.5-5.0) g/dL Urine 01/10/25 Range/Units 23:58 Urine Color Dark Yellow Urine Appearance Turbid Urine pH 5.5 (5.0-9.0) Ur Specific [place] 1.010 (1.005-1.025) Urine Protein 30 (1+) H (Neg-Trace) mg/dL Urine Glucose (UA) Negative (Negative) mg/dL All other labs normal. Assessment and Plan (1) Complicated urinary tract infection: Status: Acute (2) Septic shock: Status: Acute Plan Medical care Continue catheter drainage Procedures Date of Service Date of Service: 01/11/25
--- NOTE | 2025-01-11 08:51 | PM.CCPN ---
Subjective Subjective Date of Service: 01/11/25 Interval History: No new changes, continues to be on Levophed support Critical Care Time (minutes): 35 Physical Exam Vital Signs: Vital Signs: Last Vital Signs Temp 98.2 F 01/11/25 07:59 Pulse 94 01/11/25 08:22 Resp 22 H 01/11/25 07:59 BP 113/79 01/11/25 08:22 Pulse Ox 95 01/11/25 07:59 O2 Del Method Room Air 01/11/25 07:59 BMI result Body Mass Index 31.9 General: male in mild acute distress, he is chronically ill appearing and tired appearing Nutritional Appearance: well nourished and overweight Eyes: appearance normal, both eyes and all related structures; Alignment and Position: alignment normal and position normal Neck: No lymphadenopathy, no thyromegaly Resp: bilateral air entry equal, occasional added sounds present Cardio: Regular rate, regular rhythm; Heart sounds: S1 normal heart sound present and S2 normal heart sound present GI: soft, nontender, no guarding, no hepatosplenomegaly : bladder normal to inspection, bladder normal to palpation, no renal angle tenderness Skin: no rashes or lesions noted and elasticity normal Neuro: oriented to person, oriented to place, oriented to time and moves all extremities Objective Data Labs 01/11/25 05:02 01/11/25 05:03 Labs: Laboratory Results - last 24 hr 01/10/25 01/10/25 01/10/25 21:00 22:42 23:58 WBC 30.8 H* RBC 4.04 L Hgb 12.7 L Hct 37.2 L MCV 92.1 MCH 31.4 MCHC 34.1 RDW 12.5 Plt Count 379 D MPV 10.5 Immature Gran % (Auto) Cancelled Neut % (Auto) Cancelled Lymph % (Auto) Cancelled [place] % (Auto) Cancelled Eos % (Auto) Cancelled Baso % (Auto) Cancelled Lymph # (Auto) Cancelled [place] # (Auto) Cancelled Eos # (Auto) Cancelled Baso # (Auto) Cancelled Abs Immat Gran (auto) Cancelled Absolute Neuts (auto) Cancelled Absolute Nucleated RBC 0.000 Nucleated RBC % (auto) 0.0 Neutrophils % (Manual) 65 Band Neutrophils % 31 H Lymphocytes % (Manual) Monocytes % (Manual) 4 Abs Neuts (Manual) 29.6 H Lymphocytes # (Manual) Monocytes # (Manual) 1.2 Toxic Vacuolation PRESENT Platelet Estimate NORMAL Plt Morphology Comment NORMAL RBC Morphology NORMAL Ovalocytes [place] Cells 1+ (0-2) Smear Tech's Comments VERIFIED PT INR VBG pH 7.50 H VBG pCO2 19 VBG pO2 195 VBG HCO3 15 L VBG O2 Saturation 100.0 VBG Base Excess -5.3 Sodium 133 L Potassium 4.5 Chloride 103 Carbon Dioxide 20 L Anion Gap 15 BUN 27 H Creatinine 1.48 H Estim Creat Clear Calc 69.4 Estimated GFR 49 Random Glucose 123 H Lactic Acid 1.8 Calcium 10.2 D Phosphorus 2.3 L Magnesium 1.4 L* Total Bilirubin 1.3 H Direct Bilirubin 0.6 H AST 19 ALT 13 Alkaline Phosphatase 91 Troponin I High Sens 5.8 Total Protein 7.9 Albumin 3.9 Urine Color Dark Yellow Urine Appearance Turbid Urine pH 5.5 Ur Specific [place] 1.010 Urine Protein 30 (1+) H Urine Glucose (UA) Negative Urine Ketones Negative Urine Blood Large (3+) H Urine Nitrite Positive H Ur Leukocyte Esterase Large (3+) H Urine RBC 11-20 H Urine WBC >50 Ur Squamous Epith Cells 3-5 Urine Bacteria 1+ Hyaline Casts 6-10 COVID-19 (CANDY) Negative COVID-19 Clin Com See Note Influenza Type A (MONA) Negative Influenza Type B (MONA) Negative Influenza A & B Note See Note 01/11/25 01/11/25 01/11/25 05:02 05:03 05:04 WBC 40.8 H* RBC 3.70 L Hgb 11.4 L Hct 34.4 L MCV 93.0 MCH 30.8 MCHC 33.1 RDW 12.5 Plt Count 337 MPV 10.5 Immature Gran % (Auto) Cancelled Neut % (Auto) Cancelled Lymph % (Auto) Cancelled [place] % (Auto) Cancelled Eos % (Auto) Cancelled Baso % (Auto) Cancelled Lymph # (Auto) Cancelled [place] # (Auto) Cancelled Eos # (Auto) Cancelled Baso # (Auto) Cancelled Abs Immat Gran (auto) Cancelled Absolute Neuts (auto) Cancelled Absolute Nucleated RBC 0.000 Nucleated RBC % (auto) 0.0 Neutrophils % (Manual) 73 Band Neutrophils % 23 H Lymphocytes % (Manual) 1 L Monocytes % (Manual) 3 Abs Neuts (Manual) 39.2 H Lymphocytes # (Manual) 0.4 L Monocytes # (Manual) 1.2 Toxic Vacuolation PRESENT Platelet Estimate NORMAL Plt Morphology Comment NORMAL RBC Morphology NOTED Ovalocytes 1+ (5-14) [place] Cells 1+ (0-2) Smear Tech's Comments PT 15.4 H INR 1.3 H VBG pH 7.47 H VBG pCO2 26 VBG pO2 67 VBG HCO3 19 L VBG O2 Saturation 93.0 VBG Base Excess -2.4 Sodium 135 Potassium 5.1 Chloride 107 Carbon Dioxide 18 L Anion Gap 15 BUN 26 H Creatinine 1.40 Estim Creat Clear Calc 74.4 Estimated GFR 52 Random Glucose 110 Lactic Acid Calcium 9.3 D Phosphorus 2.0 L Magnesium 1.5 L Total Bilirubin 1.1 H Direct Bilirubin AST 17 ALT 10 Alkaline Phosphatase 77 Troponin I High Sens Total Protein 6.8 Albumin 3.3 L Urine Color Urine Appearance Urine pH Ur Specific [place] Urine Protein Urine Glucose (UA) Urine Ketones Urine Blood Urine Nitrite Ur Leukocyte Esterase Urine RBC Urine WBC Ur Squamous Epith Cells Urine Bacteria Hyaline Casts COVID-19 (CANDY) COVID-19 Clin Com Influenza Type A (MONA) Influenza Type B (MONA) Influenza A & B Note Progress Note: A&P Assessment and plan (1) BARB (acute kidney injury): Status: Acute (2) Acute hyponatremia: Status: Acute (3) [place]-vesical fistula: Status: Acute (4) Complicated urinary tract infection: Status: Acute (5) Septic shock: Status: Acute Plan Septic Shock: Possibly secondary to leakage from colovesicular fistula On Levophed support 0.07, titrate Levophed to keep map above 65 mm Hg GI: We will start on oral feeds Renal: Acute kidney injury possibly secondary to ATN from shock Baseline creatinine 0.7, creatinine today is 1.4 We will closely monitor I's and O's Avoid nephrotoxic medications Acute hypophosphatemia: due to poor oral intake will replace as per protocol Heme: Chronic anemia, closely monitor H&H, transfuse for hemoglobin less than 7 grams/deciliter Endocrine: Blood sugars under control Sliding scale insulin as needed Infectious disease: pending pancultures He had recurrent diverticulitis leading contrained intraabdominal abscess further leading to colovesical fistula for which he underwent hand assisted laparoscopic sigmoid resection, extensive lysis of adhesions, with detachment of the sigmoid from the abscess cavity and the bladder, excision of part of the abscess wall, attempted end to end anastomosis of the sigmoid to the rectum, converted to end colostomy on 12/16/[address] Serrano. Cystogram on 01/08/2025 showed leakage from the colovesicular fistula to the peritoneum CT abdomen and pelvis showed thickening of bladder wall, mesenteric stranding, no definitive abscess or fluid collection We will change ceftriaxone to Zosyn for broader coverage, continue Urology opined for conservative management, stated that the leakage from the fistula will self heal at some point. Musculoskeletal: Decubitus ulcer prevention protocol Lines: peripheral Chronic Bowman Prophylaxis: Lovenox, pantoprazole Quality Stroke Does the patient have a stroke diagnosis?: No VTE Prior VTE?: No VTE Risk Level:: Medical - moderate - high VTE Device Contraindication: N/A - Device Ordered VTE Drug Contraindication: N/A - Med Ordered
--- NOTE | 2025-01-11 10:08 | MHC.CM.PN ---
CM MET WITH PT'S SPOUSE AT [facility] PT WAS SLEEPING. PT LIVES WITH SPOUSE AND IS FUNCTIONALLY INDEPENDENT INCLUDING COLOSTOMY CARE/F/C CARE. NICOL SHOEMAKERA WAS REFERRED LAST HOSPITALIZATION BUT PT DECLINED. RETURN REFERRAL SENT JUST IN CASE NEEDED THIS TIME. PCP MARIS DELCID NP. DP: HOME, NO SERVICES IS THE GOAL. PT'S SPOUSE WILL TRANSPORT. CM WILL CONTINUE TO FOLLOW FOR ANY CHANGE TO DC PLAN/NEEDS.
--- NOTE | 2025-01-11 18:57 | PC.NURSE ---
Patient alert and oriented x4, see shift assessment for full details, titrated off Levophed at 1640, maintaining SBP 100-120's, Tylenol given this evening for temp 101.5 as ordered PRN per provider..
[2025-01-12] VITALS (24 sets, daily range): BP systolic 93–127; BP diastolic 60–81; PULSE 63–102; RESP 11–34; TEMP 36.4–37.8; O2SAT 92–98; BMI 31.0
[2025-01-12 05:58] LABS: MANUAL DIFF FLAG NO
[2025-01-12 06:23] LABS: Alanine Aminotransferase 7 U/L (0-40); Albumin Level 3.3 g/dL (3.5-5.0); Alkaline Phosphatase 69 U/L (39-117); Anion Gap 12 (12-20); Aspartate Amino Transferase 16 U/L (5-37); Blood Urea Nitrogen 18 mg/dL (9-16); Calcium 9.1 mg/dL (8.4-10.2); Carbon Dioxide 22 mmol/L (22-29); Chloride 107 mmol/L (96-108); Creatinine Clr Calc Pharmacy 79.6; Estimated Glomerular Filt Rate 58; Magnesium 2.2 mg/dL (1.6-2.6); Potassium 3.9 mmol/L (3.3-5.1); Sodium 137 mmol/L (135-145); Total Protein 6.6 g/dL (6.5-8.0)
[2025-01-12 06:32] LABS: Hematocrit 29.9 % (42.0-52.0); Hemoglobin 10.3 g/dl (14.0-18.0); Imm Gran Abs Auto 0.25 X10*3/uL (0.00-0.03); Imm Gran Pct Auto 1.2 % (0.0-0.4); Lymphocytes Absolute Auto 0.9 X10*3/uL (1.2-4.9); Mean Corpuscular HGB Conc 34.4 g/dl (31.0-36.0); Mean Corpuscular Hemoglobin 31.6 pg (27.0-33.0); Mean Corpuscular Volume 91.7 fL (80.0-98.0); NRBC Abs Auto 0.000 X10*3/uL (0.0-0.012); NRBC Pct Auto 0.0 /100WBC (0.0-0.2); Platelet Count 273 X10*3/uL (160-400); Red Blood Count 3.26 X10*6/uL (4.60-5.80); White Blood Count 20.0 X10*3/uL (4.8-10.8)
[2025-01-12] MEDS: 0.9 % Sodium Chloride Flush 3 ML SYRINGE IVFLUSH ×2 (07:47→15:29)
[2025-01-12] MEDS: Sodium,Potassium Phosphates POWD.PACK 2 PACKET PO ×2 (08:32→22:37)
--- NOTE | 2025-01-12 08:43 | P.PNCC_ITS ---
Subjective Subjective Date of Service: 01/12/25 Interval History: doing well, blood cultures growing Gram-negative rods off Levophed support since this morning Critical Care Time (minutes): 35 Physical Exam 2 Vital Signs: Vital Signs: Last Vital Signs Temp 98.3 F 01/12/25 07:59 Pulse 85 01/12/25 08:37 Resp 20 01/12/25 07:59 BP 104/62 01/12/25 08:37 Pulse Ox 96 01/12/25 07:59 O2 Del Method Room Air 01/12/25 07:59 BMI result Body Mass Index 31.0 General: elderly male in no acute distress, ill appearing lying in the bed Nutritional Appearance: well nourished and overweight Eyes: appearance normal, both eyes and all related structures; Alignment and Position: alignment normal and position normal Neck: No lymphadenopathy, no thyromegaly Resp: bilateral air entry equal, occasional added sounds present Cardio: Regular rate, regular rhythm; Heart sounds: S1 normal heart sound present and S2 normal heart sound present GI: soft, nontender, no guarding, no hepatosplenomegaly : bladder normal to inspection, bladder normal to palpation, no renal angle tenderness Skin: no rashes or lesions noted and elasticity normal Neuro: oriented to person, oriented to place, oriented to time and moves all extremities Objective Data Labs 01/12/25 04:58 01/12/25 04:58 Labs: Laboratory Results - last 24 hr 01/12/25 04:58 WBC 20.0 H RBC 3.26 L Hgb 10.3 L Hct 29.9 L MCV 91.7 MCH 31.6 MCHC 34.4 RDW 12.8 Plt Count 273 MPV 11.0 Immature Gran % (Auto) 1.2 H Neut % (Auto) 88.8 H Lymph % (Auto) 4.3 L [place] % (Auto) 4.6 Eos % (Auto) 1.0 Baso % (Auto) 0.1 Lymph # (Auto) 0.9 L [place] # (Auto) 0.9 Eos # (Auto) 0.2 Baso # (Auto) 0.0 Abs Immat Gran (auto) 0.25 H Absolute Neuts (auto) 17.7 H Absolute Nucleated RBC 0.000 Nucleated RBC % (auto) 0.0 Sodium 137 Potassium 3.9 D Chloride 107 Carbon Dioxide 22 Anion Gap 12 BUN 18 H Creatinine 1.29 Estim Creat Clear Calc 79.6 Estimated GFR 58 Random Glucose 131 H Calcium 9.1 Phosphorus 2.0 L Magnesium 2.2 Total Bilirubin 0.5 AST 16 ALT 7 Alkaline Phosphatase 69 Total Protein 6.6 Albumin 3.3 L Random Vancomycin 17.7 Microbiology Microbiology Results: Microbiology 01/10/25 21:03 Blood - Venous Blood Culture - Preliminary Prelim: GNR Gram Stain only 01/10/25 21:03 Blood - Venous Blood Culture - Preliminary Prelim: GNR Gram Stain only 01/11/25 Unknown Urine clean catch - Clean Catch Midstream Urine Culture - Final Progress Note: A&P Assessment and plan (1) BARB (acute kidney injury): Status: Acute (2) Acute hyponatremia: Status: Acute (3) [place]-vesical fistula: Status: Acute (4) Complicated urinary tract infection: Status: Acute (5) Septic shock: Status: Acute Plan Septic Shock: Possibly secondary to leakage from colovesicular fistula Off levophed since GI: on oral feeds Renal: Acute kidney injury possibly secondary to ATN from shock Baseline creatinine 0.7, creatinine improving down to 1.2 from 1.4 yesterday We will closely monitor I's and O's Avoid nephrotoxic medications Acute hypophosphatemia: due to poor oral intake will replace as per protocol Heme: Chronic anemia, closely monitor H&H, transfuse for hemoglobin less than 7 grams/deciliter Endocrine: Blood sugars under control Sliding scale insulin as needed Infectious disease: blood cultures positive for GNR, leucocytosis improving He had recurrent diverticulitis leading contrained intraabdominal abscess further leading to colovesical fistula for which he underwent hand assisted laparoscopic sigmoid resection, extensive lysis of adhesions, with detachment of the sigmoid from the abscess cavity and the bladder, excision of part of the abscess wall, attempted end to end anastomosis of the sigmoid to the rectum, converted to end colostomy on 12/16/[address] Serrano. Cystogram on 01/08/2025 showed leakage from the colovesicular fistula to the peritoneum CT abdomen and pelvis showed thickening of bladder wall, mesenteric stranding, no definitive abscess or fluid collection continue Zosyn will discontinue vancomycin Urology opined for conservative management, stated that the leakage from the fistula will self heal at some point. Musculoskeletal: Decubitus ulcer prevention protocol Lines: peripheral Chronic Bowman Prophylaxis: Lovenox, pantoprazole Quality Stroke Does the patient have a stroke diagnosis?: No VTE Prior VTE?: No VTE Risk Level:: Medical - moderate - high VTE Device Contraindication: N/A - Device Ordered VTE Drug Contraindication: N/A - Med Ordered
--- NOTE | 2025-01-12 21:00 | PC.NURSE ---
Upon initial assessment at approximately?1900- Patient A+Ox4. Afebrile. NSR on tele, HR 80s. MAP >65. Lungs diminished throughout, SpO2 >95% on RA. LLQ ostomy with pasty brown output. Indwelling?catheter draining dark yellow urine with sediment. Patient denies any pain. Bed locked and in lowest position, bed alarm on, call balderas within reach.? Approximately?1999- Report given to SHAUN Maldonado and patient was transferred to [facility].? See EMR/ Flowsheet for further details.?
[2025-01-13 04:00] VITALS: BP 110/69; PULSE 83; RESP 18; TEMP 36.6; O2SAT 95
[2025-01-13 06:00] VITALS: BMI 30.9
[2025-01-13 07:13] VITALS: BP 118/68; PULSE 74; RESP 17; TEMP 37.1; O2SAT 93
[2025-01-13 07:41] LABS: Creatinine Clr Calc Pharmacy 90.6; Estimated Glomerular Filt Rate > 60
[2025-01-13] MEDS: 0.9 % Sodium Chloride Flush 3 ML SYRINGE IVFLUSH (07:51)
[2025-01-13 11:04] VITALS: BP 105/69; PULSE 67; RESP 18; TEMP 36.1; O2SAT 95
--- NOTE | 2025-01-13 11:39 | MHC.CM.PN ---
Per ROUNDS discussion, Patient is not yet medically cleared for dc (just downgraded from ICU); home is the goal and CM will continue to follow.
--- NOTE | 2025-01-13 14:33 | P.PNIM_ITS ---
Subjective Subjective Date of Service: 01/13/25 Interval History: No acute issues overnight. Remains afebrile Review of Systems Denies chest pain Denies shortness of breath Denies nausea vomiting diarrhea Denies fever chills Physical Exam 2 Vital Signs: Vital Signs: Last Vital Signs Temp 97.0 F 01/13/25 11:04 Pulse 67 01/13/25 11:04 Resp 18 01/13/25 11:04 BP 105/69 01/13/25 11:04 Pulse Ox 95 01/13/25 11:04 O2 Del Method Room Air 01/13/25 11:04 BMI result Body Mass Index 30.9 Const: Other: Awake alert no acute distress Resp: Other: Clear to auscultation bilaterally no rales rhonchi or wheezes Cardio: Other: No S4; positive S1-S2; no S3 murmurs rubs or gallops GI: Other: Soft nontender nondistended normoactive bowel sounds Extrem: Other: No edema bilaterally Objective Data Active Medications Acetaminophen (Acetaminophen 325 Mg Tablet) 650 mg PO Q6H PRN PRN Reason: Fever >100.4, Headache Last Admin: 01/12/25 10:23 Dose: 650 mg Documented By: JENNY Heparin Sodium (Porcine) (Heparin Sodium,Porcine 5,000 Unit/Ml Vial) 5,000 unit SUBCUT Q8H [facility] Last Admin: 01/13/25 06:17 Dose: 5,000 unit Documented By: RMAOS Piperacillin Sod/Tazobactam (Sod 4.5 gm/ Sodium Chloride) 100 mls @ 200 mls/hr IV Q6H [facility] Last Infusion: 01/13/25 09:31 Dose: Infused Documented By: PANDA Ondansetron HCl (Ondansetron Hcl 4 Mg/2 Ml Vial) 4 mg IVPUSH Q6H PRN PRN Reason: Nausea and Vomiting Last Admin: 01/13/25 05:02 Dose: 4 mg Documented By: RAMOS Sodium Chloride (0.9 % Sodium Chloride Flush 3 Ml Syringe) 3 ml IVFLUSH QSHIFT [facility] Last Admin: 01/13/25 07:51 Dose: 3 ml Documented By: PANDA Tolterodine Tartrate (Tolterodine Tartrate La 4 Mg Cap.Er.24h) 4 mg PO DAILY [facility] Last Admin: 01/13/25 07:52 Dose: 4 mg Documented By: PANDA Labs 01/12/25 04:58 01/13/25 06:33 Labs: Laboratory Results - last 24 hr 01/13/25 06:33 Hold Purple Top SEE NOTE Estim Creat Clear Calc 90.6 Estimated GFR > 60 Microbiology Microbiology Results: Microbiology 01/10/25 21:03 Blood Culture - Preliminary Blood - Venous Gram negative rosa 01/10/25 21:03 Blood Culture - Preliminary Blood - Venous Gram negative rosa Assessment and Plan (1) Gram-negative bacteremia: Status: Acute (2) BARB (acute kidney injury): Status: Acute Plan 54-year-old male with history of colovesicular fistula recent partial colectomy and fistula repair at the end of November 2024 s/p Bowman catheter insertion for bladder decompression due to bladder leak who presented to the emergency department with generalized weakness, low-grade fever, malaise and fatigue ongoing for the last couple of days. ?Patient developed hypotension and was admitted to ICU for pressors 1. Gram-negative bacteremia (recurrent diverticulitis leading contrained intraabdominal abscess further leading to colovesical fistula for which he underwent hand assisted laparoscopic sigmoid resection, extensive lysis of adhesions, with detachment of the sigmoid from the abscess cavity and the bladder, excision of part of the abscess wall, attempted end to end anastomosis of the sigmoid to the rectum, converted to end colostomy on 12/16/[address] Serrano. Cystogram on 01/08/2025 showed leakage from the colovesicular fistula to the peritoneum) -preliminary; await formal ID -Zosyn (4) 2.Acute kidney injury ( ATN) -has returned to baseline Follow renal/divalents 3.Anemia -at baseline -follow clinically Endocrine: Blood sugars under control Sliding scale insulin as needed Lovenox -full code Quality Stroke Does the patient have a stroke diagnosis?: No VTE Prior VTE?: No VTE Risk Level:: Medical - moderate - high VTE Device Contraindication: N/A - Device Ordered VTE Drug Contraindication: N/A - Med Ordered
[2025-01-13 15:25] VITALS: BP 98/62; PULSE 72; RESP 19; TEMP 36.4; O2SAT 94
[2025-01-13 19:09] VITALS: BP 105/63; PULSE 70; RESP 20; TEMP 37.3; O2SAT 95
[2025-01-13 23:02] VITALS: BP 115/71; PULSE 98; RESP 20; TEMP 37.1; O2SAT 93
[2025-01-14 03:18] VITALS: BP 117/74; PULSE 62; RESP 20; TEMP 37.2; O2SAT 95
[2025-01-14 05:38] VITALS: BMI 30.9
[2025-01-14 07:19] VITALS: BP 110/73; PULSE 67; RESP 16; TEMP 36.7; O2SAT 94
[2025-01-14 07:35] LABS: Creatinine Clr Calc Pharmacy 91.6; Estimated Glomerular Filt Rate > 60
[2025-01-14 09:51] LABS: MANUAL DIFF FLAG NO
[2025-01-14 09:57] LABS: Hematocrit 31.4 % (42.0-52.0); Hemoglobin 10.7 g/dl (14.0-18.0); Imm Gran Abs Auto 0.04 X10*3/uL (0.00-0.03); Imm Gran Pct Auto 0.7 % (0.0-0.4); Lymphocytes Absolute Auto 1.6 X10*3/uL (1.2-4.9); Mean Corpuscular HGB Conc 34.1 g/dl (31.0-36.0); Mean Corpuscular Hemoglobin 31.5 pg (27.0-33.0); Mean Corpuscular Volume 92.4 fL (80.0-98.0); NRBC Abs Auto 0.000 X10*3/uL (0.0-0.012); NRBC Pct Auto 0.0 /100WBC (0.0-0.2); Platelet Count 257 X10*3/uL (160-400); Red Blood Count 3.40 X10*6/uL (4.60-5.80); White Blood Count 6.0 X10*3/uL (4.8-10.8)
[2025-01-14 11:17] VITALS: BP 114/66; PULSE 59; RESP 18; TEMP 36.8; O2SAT 95
--- NOTE | 2025-01-14 13:18 | P.PNIM_ITS ---
Subjective Subjective Date of Service: 01/14/25 Interval History: No acute issues overnight. Remains afebrile Review of Systems Denies chest pain Denies shortness of breath Denies nausea vomiting diarrhea Denies fever chills Physical Exam 2 Vital Signs: Vital Signs: Last Vital Signs Temp 98.3 F 01/14/25 11:17 Pulse 59 01/14/25 11:17 Resp 18 01/14/25 11:17 BP 114/66 01/14/25 11:17 Pulse Ox 95 01/14/25 11:17 O2 Del Method Room Air 01/14/25 11:17 BMI result Body Mass Index 30.9 Const: Other: Awake alert no acute distress Resp: Other: Clear to auscultation bilaterally no rales rhonchi or wheezes Cardio: Other: No S4; positive S1-S2; no S3 murmurs rubs or gallops GI: Other: Soft nontender nondistended normoactive bowel sounds Extrem: Other: No edema bilaterally Objective Data Active Medications Acetaminophen (Acetaminophen 325 Mg Tablet) 650 mg PO Q6H PRN PRN Reason: Fever >100.4, Headache Last Admin: 01/14/25 08:20 Dose: 650 mg Documented By: PANDA Heparin Sodium (Porcine) (Heparin Sodium,Porcine 5,000 Unit/Ml Vial) 5,000 unit SUBCUT Q8H [facility] Last Admin: 01/14/25 06:05 Dose: 5,000 unit Documented By: RACHAEL Piperacillin Sod/Tazobactam (Sod 4.5 gm/ Sodium Chloride) 100 mls @ 200 mls/hr IV Q6H [facility] Last Infusion: 01/14/25 11:14 Dose: Infused Documented By: PANDA Ondansetron HCl (Ondansetron Hcl 4 Mg/2 Ml Vial) 4 mg IVPUSH Q6H PRN PRN Reason: Nausea and Vomiting Last Admin: 01/13/25 05:02 Dose: 4 mg Documented By: RAMOS Sodium Chloride (0.9 % Sodium Chloride Flush 3 Ml Syringe) 3 ml IVFLUSH QSHIFT [facility] Last Admin: 01/14/25 08:18 Dose: Not Given Documented By: PANDA Non-Admin Reason: IV Running Tolterodine Tartrate (Tolterodine Tartrate La 4 Mg Cap.Er.24h) 4 mg PO DAILY [facility] Last Admin: 01/14/25 08:18 Dose: 4 mg Documented By: PANDA Labs 01/14/25 09:41 01/14/25 06:53 Labs: Laboratory Results - last 24 hr 01/14/25 01/14/25 06:53 09:41 MCV 92.4 MCH 31.5 MCHC 34.1 RDW 12.8 Plt Count 257 MPV 10.5 Immature Gran % (Auto) 0.7 H Neut % (Auto) 55.2 Lymph % (Auto) 26.3 [place] % (Auto) 12.0 H Eos % (Auto) 5.5 H Baso % (Auto) 0.3 Lymph # (Auto) 1.6 [place] # (Auto) 0.7 Eos # (Auto) 0.3 Baso # (Auto) 0.0 Abs Immat Gran (auto) 0.04 H Absolute Neuts (auto) 3.3 Absolute Nucleated RBC 0.000 Nucleated RBC % (auto) 0.0 Estim Creat Clear Calc 91.6 Estimated GFR > 60 Random Vancomycin 3.7 L Microbiology Microbiology Results: Microbiology 01/10/25 21:03 Blood Culture - Preliminary Blood - Venous Enterobacter cloacae complex 01/10/25 21:03 Blood Culture - Final Blood - Venous Enterobacter cloacae complex Assessment and Plan (1) Gram-negative bacteremia: Status: Acute (2) BARB (acute kidney injury): Status: Acute Plan 54-year-old male with history of colovesicular fistula recent partial colectomy and fistula repair at the end of November 2024 s/p Bowman catheter insertion for bladder decompression due to bladder leak who presented to the emergency department with generalized weakness, low-grade fever, malaise and fatigue ongoing for the last couple of days. ?Patient developed hypotension and was admitted to ICU for pressors 1. Gram-negative bacteremia (recurrent diverticulitis leading contrained intraabdominal abscess further leading to colovesical fistula for which he underwent hand assisted laparoscopic sigmoid resection, extensive lysis of adhesions, with detachment of the sigmoid from the abscess cavity and the bladder, excision of part of the abscess wall, attempted end to end anastomosis of the sigmoid to the rectum, converted to end colostomy on 12/16/[address] Serrano. Cystogram on 01/08/2025 showed leakage from the colovesicular fistula to the peritoneum) -blood cultures 2/2 pansensitive Enterococcus -Zosyn (4) -await 2nd set of blood cultures to document clearance -discuss antibiotic route and duration with Infectious Disease 2.Acute kidney injury ( ATN) -has returned to baseline Follow renal/divalents 3.Anemia -at baseline -follow clinically Endocrine: Blood sugars under control Sliding scale insulin as needed Lovenox -full code Quality Stroke Does the patient have a stroke diagnosis?: No VTE Prior VTE?: No VTE Risk Level:: Medical - moderate - high VTE Device Contraindication: N/A - Device Ordered VTE Drug Contraindication: N/A - Med Ordered
--- NOTE | 2025-01-14 14:54 | HO.OSTOMY ---
Ostomy Consult 54yr old male admitted [place] [facility] [place]10[place]25 22:48 for Septic Shock - See H&P for detailed history. While on unit unit RN asked for assistance with changing patients pouch. Arrival to bedside - patient recalls my role in his care from last admission when his ostomy was created. He was in the process of cutting his pouch and reported he did not need help he reports he is independent at home and did not need assistance. Patient was changing pouch prior to showering. Patient was advised he may have better pouch adherence if he were to wait to change pouch until after shower. He was not agreeable to this plan and reported he does normally do that at home but while inpatient would prefer to change then shower - concerns were reiterated and patient demonstrates understanding but still wishes to change prior to shower. He reports he is changing his pouch daily. When asked if this was due to leaking or if this was due personal preference he reported preference. We discussed concern for skin integrity he reports he has not had skin stripping thus far. He reports he does not like the look or thought of the soiled pouch. We discussed the insurance only supplying 20 a month and he reports understanding. The patient did not allow for his stoma assessment and reports direct care team and providers have assessed and there is no concern. The patient was reminded if he needed my assistance or experience I would make myself available to him - direct care notified to contact me if patient is agreeable and or needs assistance. Patient to change own pouch at this time.
[2025-01-14 15:15] VITALS: BP 116/66; PULSE 75; RESP 18; TEMP 36.4; O2SAT 94
[2025-01-14 19:10] VITALS: BP 111/74; PULSE 55; RESP 16; TEMP 36.4; O2SAT 96
[2025-01-14 22:57] VITALS: BP 120/80; PULSE 61; RESP 16; TEMP 36.6; O2SAT 97
[2025-01-14] MEDS: 0.9 % Sodium Chloride Flush 3 ML SYRINGE IVFLUSH (23:02)
[2025-01-15 03:24] VITALS: BP 115/78; PULSE 58; RESP 16; TEMP 36.1; O2SAT 97
[2025-01-15 05:39] VITALS: BMI 31.1
[2025-01-15 07:14] VITALS: BP 135/80; PULSE 62; RESP 18; TEMP 36.4; O2SAT 94
[2025-01-15] MEDS: 0.9 % Sodium Chloride Flush 3 ML SYRINGE IVFLUSH (07:20)
[2025-01-15 07:49] LABS: Alanine Aminotransferase 31 U/L (0-40); Albumin Level 3.4 g/dL (3.5-5.0); Alkaline Phosphatase 100 U/L (39-117); Anion Gap 10 (12-20); Aspartate Amino Transferase 31 U/L (5-37); Blood Urea Nitrogen 13 mg/dL (9-16); Calcium 9.6 mg/dL (8.4-10.2); Carbon Dioxide 28 mmol/L (22-29); Chloride 107 mmol/L (96-108); Creatinine Clr Calc Pharmacy 96.9; Estimated Glomerular Filt Rate > 60; Potassium 4.3 mmol/L (3.3-5.1); Sodium 141 mmol/L (135-145); Total Protein 6.9 g/dL (6.5-8.0)
[2025-01-15 11:03] VITALS: BP 121/69; PULSE 69; RESP 18; TEMP 36.6; O2SAT 96
--- NOTE | 2025-01-15 12:19 | PM.DS ---
DS: Providers Provider Date of Service: 01/15/25 Date of admission: 01/10/25 22:48 Date of discharge: 01/15/25 Primary care physician: Mady Meza NP Consults: 01/10/25 23:26 Consult to Urology Routine Consulting Provider: [facility] Reason for consultation: Septic shock, UTI, recent coloversicualr fist, chicas due to bladder leak 01/11/25 08:36 Consult to Urology Routine Consulting Provider: [facility] [place] [facility] Reason for consultation: fistula leak 01/15/25 07:28 Consult to Infectious Diseases Routine Consulting Provider: [facility] [place] [facility] Reason for consultation: Bacteremia Has provider been notified: Yes DS: Diagnosis Discharge Diagnosis (1) Gram-negative bacteremia: Status: Acute (2) BARB (acute kidney injury): Status: Acute DS: Summary Hospital Course Hospital Course: 54-year-old male with history of colovesicular fistula recent partial colectomy and fistula repair at the end of November 2024 s/p Chicas catheter insertion for bladder decompression due to bladder leak who presented to the emergency department with generalized weakness, low-grade fever, malaise and fatigue ongoing for the last couple of days. ? Patient reported after surgery he had a short course of antibiotics but has since completed those.? Chicas catheter has been in place since the surgery due to bladder leak each time they check, last checked this past week, has follow up appt with Dr Rhodes tomorrow. ?In the emergency department patient is tachycardic to 150s, hypotensive to systolic of 70s,? remained hypotensive despite fluid resuscitation requiring vasopressor support.?? Laboratory data significant for WBC 30.8? with bandemia, serum bicarb 20, BUN 27, creatinine 1.48, magnesium 1.4 Hospital Course Patient treated as sepsis protocol with volume antibiotics; did not respond and was admitted to ICU. Remained on pressors and on the 3rd day was able to be weaned from pressors and transferred to telemetry. On telemetry his monitor failed to demonstrate any acute dysrhythmias. Blood cultures 2/2 grew out Enterobacter. ID consulted. White count initially 40,000 . .. Normalized on discharge. At ID recommendation he will be discharged on Cipro b.i.d. for 14 days. He will follow up with Urology and PCP as scheduled Time Attestation Discharge Coordination Time (in mins): 35 Quality: Safe Use of Opioids Does Pt have an Active Cancer Diagnosis on the Problem List?: No Quality: Stroke Does the patient have a stroke diagnosis?: No Physical Exam Vital Signs: Vital Signs: Last Vital Signs Temp 97.9 F 01/15/25 11:03 Pulse 69 01/15/25 11:03 Resp 18 01/15/25 11:03 BP 121/69 01/15/25 11:03 Pulse Ox 96 01/15/25 11:03 O2 Del Method Room Air 01/15/25 11:03 BMI result Body Mass Index 31.1 Const: Other: Awake alert no acute distress Resp: Other: Clear to auscultation bilaterally no rales rhonchi or wheezes Cardio: Other: No S4; positive S1-S2; no S3 murmurs rubs or gallops GI: Other: Soft nontender nondistended normoactive bowel sounds Extrem: Other: No edema bilaterally DS: Data Data Completed and Pending Completed studies during hospitalization [Text1]: Procedures Bypass Sigmoid Colon to Cutaneous, Percutaneous Endoscopic Approach (12/11/24) Destruction of Bladder, Via Natural or Artificial Opening Endoscopic (12/11/24) Drainage of Peritoneal Cavity, Percutaneous Approach (12/11/24) Excision of Bladder, Via Natural or Artificial Opening Endoscopic, Diagnostic (12/11/24) Excision of Sigmoid Colon, Percutaneous Endoscopic Approach, Hand-Assisted (12/11/24) Introduction of Anesthetic Agent into Peripheral Nerves and Plexi, Percutaneous Approach (12/11/24) Release Peritoneum, Open Approach (12/11/24) Labs on day of discharge: Laboratory Results - last 24 hr 01/15/25 07:21 Hold Purple Top SEE NOTE Sodium 141 Potassium 4.3 Chloride 107 Carbon Dioxide 28 Anion Gap 10 L BUN 13 Creatinine 1.06 Estim Creat Clear Calc 96.9 Estimated GFR > 60 Fasting Glucose 100 H Calcium 9.6 Total Bilirubin 0.4 AST 31 ALT 31 Alkaline Phosphatase 100 Total Protein 6.9 Albumin 3.4 L Preliminary micro results at discharge 01/13/25 12:11 Blood Culture - Preliminary Blood - Venous No growth after 24 hours. 01/13/25 12:11 Blood Culture - Preliminary Blood - Venous No growth after 24 hours. Discharge Plan Discharge Anticipated Discharge Date/Time: 01/15/25 12:11 Patient Disposition: Home Health Service Discharge Diagnosis: Enterobacter bacteremia Referrals: Mady Meza NP [Primary Care Provider, [facility]] - 1 Week Discharge Medications: New ciprofloxacin HCl [Cipro] 500 mg tablet 500 mg PO BID Qty: 28 0RF Continued phenazopyridine 200 mg tablet 200 mg PO DAILY PRN (Reason: pain) 12 Days Qty: 12 0RF Rx Instructions: take one tablet daily in AM with breakfast as needed for bladder spasms while you have the catheter. solifenacin [Vesicare] 5 mg tablet 5 mg PO DAILY Qty: 30 0RF ibuprofen 200 mg Tablet 600 mg PO Q6H PRN (Reason: Pain) acetaminophen 500 mg Tablet 500 mg PO Q6H PRN (Reason: Pain (Scale Score 1-3)) melatonin 5 mg Tablet 5 mg PO BEDTIME PRN (Reason: Sleep) Discharge Orders: Discharge Order (Routine); Ordered 01/15/25 Ordered By: Abdi Cuellar Diet: Advance to usual diet Activity on Discharge: As tolerated Stand Alone Forms: Patient Portal Discharge page Print Language: Yi Care Plan Goals: Continue all medicines as taken prior to hospitalization. Cipro has been added to your regimen; twice daily for 2 weeks Health Concerns: Continue current Chicas care. Follow up with Urology as ordered Plan of Treatment: Follow up with the PCP next available Assessment: See discharge summary
--- NOTE | 2025-01-15 12:45 | MHC.CM.PN ---
Patient has been medically cleared for dc to home today, self care.
--- NOTE | 2025-02-10 08:16 | P.CDIM_ITS ---
PROVIDER RESPONSE TEXT: To clarify, the appropriate diagnosis supported by the clinical indicators: Sepsis with Septic shock: probable QUERY TEXT: PHYSICIAN'S DOCUMENTATION REQUEST Date of Query: 01/15/2025 08:01 AM EDT Patient Name: Jasen Calhoun Admit Date: 01/11/2025 Dear Abdi Cuellar DO, A review of the medical record indicates additional documentation may be needed. Please review below and update the documentation accordingly. 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 Patient developed hypotension and was admitted to the ICU for pressor support. WBC 40.8 BANDS 31 % TEMP 101.5 HR 102 RR 28 BP 89/68 L ED: He received a dose of IV Rocephin from triage and will be given a dose of Vancomycin to broaden coverage for his lidya Sepsis. He has kidney injury but likely source of Sepsis is urine. Treating Sepsis, potential septic shock. 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 Sepsis Systemic manifestations of infection, with 2 or more SIRS criteria which include: Fever > 100.4?F or hypothermia < 96.8?F Leukocytosis - WBC > 12,000 or leukopenia, WBC < 4,000, or > 10% bands Tachycardia- > 90 beats/minute Tachypnea- RR > 20 breaths/minute or PaCO2 < 32mmHg Severe Sepsis Sepsis with associated acute organ dysfunction, such as renal or respiratory failure Documentation should indicate the association between the sepsis and the organ dysfunction Septic Shock Severe sepsis with associated with circulatory failure, evidenced by hypotension and hypoperfusion Based on the above information and the recognized standard for sepsis, could you please clarify if this diagnoses is still accurate and reflective of the patient's condition to ensure quality of the medical record. Consistency of a principal diagnosis: Sepsis with Septic shock possible, probable, suspected, cannot rule out Bacteremia Other (explain) Clinically unable to determine (explain) Thank you, Gretel May, CCS, CDIS Use of terms such as suspected, likely, concern for, or probable (associated with a specific diagnosis that is being evaluated, monitored, or treated as if it exists) are acceptable and can be coded in the inpatient setting, when documented at the time of discharge. Please use your independent medical judgment in providing your response. THIS QUERY IS PART OF THE PERMANENT MEDICAL RECORD
== END 2025-01-15 13:38 | disposition home or self-care (01) | DRG 871 ==
LOC: HO.ED 22:47 → HO.EDOVER 22:56 → HO.ICU 23:05 → HO.IMC 01-12 19:27
PROVIDERS: Internal Medicine Pulmonary Disease; Nurse Practitioner Family; Physician Assistant Medical; Admitting Provider Registered Nurse Community Health; Emergency Provider Emergency Medicine; PCP Nurse Practitioner; Visit Provider Hospitalist
DX: A41.9 Sepsis, unspecified organism (principal); N17.0 Acute kidney failure with tubular necrosis; R65.21 Severe sepsis with septic shock; N39.0 Urinary tract infection, site not specified; N32.1 Vesicointestinal fistula; D64.9 Anemia, unspecified; E83.39 Other disorders of phosphorus metabolism; Z20.822 Contact with and (suspected) exposure to COVID-19; Z87.891 Personal history of nicotine dependence; Z79.899 Other long term (current) drug therapy
CPT/HCPCS: 36415; 71045; 74177; 80048; 80053; 80076; 80202; 81001; 82565; 82803; 83605; 83735; 84100; 84484; 85007; 85025; 85027; 85610; 87040; 87077; 87086; 87186; 87205; 87502; 87635; 93005; 99285; J0131; J0696; J1644; J2250; J2405; J2543; J3373; J3374; J3475; P9047; Q9967

== ENCOUNTER → 2025-01-10 20:37 | Outpatient (BNV) | payer OTHER, SELFPAY | PROVIDERS: Admitting Provider Registered Nurse Community Health; Emergency Provider Emergency Medicine; PCP Nurse Practitioner; Visit Provider Internal Medicine Cardiovascular Disease | DX: R00.0 Tachycardia, unspecified (principal) | CPT/HCPCS: 93010 ==

== ENCOUNTER → 2025-01-10 21:08 | Outpatient (BNV) | payer OTHER, SELFPAY | PROVIDERS: Admitting Provider Registered Nurse Community Health; Emergency Provider Emergency Medicine; PCP Nurse Practitioner; Visit Provider Student in an Organized Health Care Education/Training Program | DX: A41.9 Sepsis, unspecified organism (principal) | CPT/HCPCS: 71045 ==

== ENCOUNTER 2025-01-10 22:48 | Outpatient (BNV) | payer OTHER, SELFPAY | END 2025-01-11 00:44 | PROVIDERS: Admitting Provider Registered Nurse Community Health; Emergency Provider Emergency Medicine; PCP Nurse Practitioner; Visit Provider Student in an Organized Health Care Education/Training Program | DX: N32.89 Other specified disorders of bladder (principal) | CPT/HCPCS: 74177 ==

== ENCOUNTER → 2025-01-10 22:48 | Outpatient (BNV) | payer OTHER, SELFPAY | PROVIDERS: Admitting Provider Registered Nurse Community Health; Emergency Provider Emergency Medicine; PCP Nurse Practitioner; Visit Provider Urology | DX: N39.0 Urinary tract infection, site not specified (principal); A41.9 Sepsis, unspecified organism; R65.21 Severe sepsis with septic shock | CPT/HCPCS: 99222 ==

== ENCOUNTER → 2025-01-10 22:48 | Outpatient (BNV) | payer OTHER, SELFPAY | PROVIDERS: Admitting Provider Registered Nurse Community Health; Emergency Provider Emergency Medicine; PCP Nurse Practitioner; Visit Provider Hospitalist | DX: A41.9 Sepsis, unspecified organism (principal); R65.21 Severe sepsis with septic shock; N17.9 Acute kidney failure, unspecified | CPT/HCPCS: 99232; 99239 ==

== ENCOUNTER → 2025-01-10 22:48 | Outpatient (BNV) | payer OTHER, SELFPAY | PROVIDERS: Admitting Provider Registered Nurse Community Health; Emergency Provider Emergency Medicine; PCP Nurse Practitioner; Visit Provider Registered Nurse Community Health | DX: N17.9 Acute kidney failure, unspecified (principal); E87.1 Hypo-osmolality and hyponatremia; N32.1 Vesicointestinal fistula; N39.0 Urinary tract infection, site not specified; A41.9 Sepsis, unspecified organism; R65.21 Severe sepsis with septic shock | CPT/HCPCS: 99291 ==

== ENCOUNTER 2025-01-20 10:40 | Outpatient (REF) | payer OTHER, SELFPAY ==
--- NOTE | ~2025-01-20 | FL_ITS ---
EXAMINATION: XR CYSTOGRAPHY CLINICAL INFORMATION: L98.8 - Other specified disorders of the skin and subcutaneous tissue ; follow-up vesico-intestinal fistula. COMPARISON: 01/08/2025, 12/29/2024. TECHNIQUE: Under direct fluoroscopic control, urinary bladder was instilled with 225 mL of Cystografin through the patient's existing Bowman catheter with balloon inflated. Images were obtained during contrast instillation and post drainage. FINDINGS: Bowman catheter balloon is located within the lumen of the urinary bladder. Contrast normally distends the urinary bladder, which has a grossly normal shape. The previously seen fistulous tract previously extending into bowel is again noted, however appears as a sinus tract, with no definite connection to the adjacent bowel structures at this time. Essentially it is now a blind-ending short sinus tract arising from the dome of the urinary bladder. There is no gross extravasation of contrast identified. The patient tolerated the procedure well with no immediate complication. FLUOROSCOPY TIME: 1 minute 13 seconds DOSE AREA PRODUCT: 1866 uGy-m2 (microgray-meter squared) 5 images acquired, and 7 cine captures acquired. FL/FL cystogram IMPRESSION: 1. Previously seen fistulous tract arising from the dome of the urinary bladder now appears as a blind-ending short sinus tract, consistent with partial healing. Currently there is no definitive connection to bowel structures, and no evidence of free contrast extravasation into the retroperitoneum. Electronically signed by: Ehsan Carpenter MD 01/20/2025 11:55 AM EDT
== END 2025-01-20 10:41 | disposition home or self-care (01) ==
LOC: HO.XRAY 10:40
PROVIDERS: PCP Nurse Practitioner; Visit Provider Urology
DX: L98.8 Other specified disorders of the skin and subcutaneous tissue (principal)
CPT/HCPCS: 51600; 74455; Q9958

== ENCOUNTER → 2025-01-20 10:44 | Outpatient (BNV) | payer OTHER, SELFPAY | PROVIDERS: PCP Nurse Practitioner; Visit Provider Radiology Diagnostic Radiology | DX: L98.8 Other specified disorders of the skin and subcutaneous tissue (principal) | CPT/HCPCS: 51600; 74455 ==

== ENCOUNTER 2025-01-21 10:14 | Outpatient (AMB) | payer OTHER, SELFPAY ==
--- NOTE | 2025-01-21 10:14 | MHC.OFFVIS ---
Intake Visit Reasons: discuss results Intake Note: Patient presents today via telehealth to discuss results Urology Medication:Solifenacin Blood Thinner:none Antibiotic Allergies:none Allergies No Known Allergies Allergy (Verified 01/21/25 10:15) HPI Comments Details: 01/21/2025--Jasen is a 54-year-old male who is being treated for colovesical fistula. He is status post sigmoid abscess. He had a cystogram x2 the most recent cystogram done on 01/20/2025 noted that there is still a fistulous tract no contrast is seen exiting into the retroperitoneum partially healed. A catheter needs to remain and repeat cystogram we will be scheduled. History of Present Illness The patient is a 54-year-old male presenting with a colovesical fistula. Following a sigmoid abscess resection, the patient has undergone 2 cystograms, with the latest showing partial healing with a persistent fistulous tract. The catheter is to remain for at least 10 more days to facilitate complete healing, with a repeat cystogram planned. Bladder spasms have been managed with Vesicare, reducing in frequency and severity. The patient was hospitalized for a week due to catheter-related complications UTI-sepsis and is on Ciprofloxacin. 30 minutes spent in review of records pertaining to this visit and including discussion with the patient and documentation of this visit. Results - Cystogram on 01/20/25: Partially healed fistulous tract, no contrast exiting into the retroperitoneum. Plan 1. Colovesical Fistula - Continue catheterization for at least 10 more days to allow complete healing of the fistulous tract. - Schedule a repeat cystogram in 10 days 2. Bladder Spasm - Continue Vesicare as needed for bladder spasm management. 3. Infection Prevention - Continue Ciprofloxacin [facility] Medical History Complicated urinary tract infection Abdominopelvic abscess Dysuria History of diverticulosis Fistula No known health problems Surgical History S/P colostomy Hx of colonoscopy No history of previous surgery Social History Household Members: Family Housing: House Do you presently have visiting nurse or other home services: No Patient Tobacco Use Status: Former Tobacco user e-Cigarette/Vaping Use: Never Used Advance Directives Date on File: 12/11/24 service: No Review of Systems Const All systems reviewed & are unremarkable except as noted in HPI and below Reports no additional complaints Eyes Reports no additional complaints ENT Reports no additional complaints Card Reports no additional complaints Resp Reports no additional complaints GI Reports no additional complaints Reports as per HPI Musc Reports no additional complaints Skin/Breast Reports system reviewed and no additional complaints, except as documented Neuro Reports no additional complaints Psych Reports no additional complaints Endo Reports no additional complaints Enio/Lymph Reports no additional complaints Aller/Immun Reports no additional complaints Telehealth Telehealth Telehealth Platform: [employer]acher / GoN[employer] Location of provider rendering services: practice address Location of patient: address on file Patient Identification confirmed using: Name, : Yes Telehealth method: voice only Patient verbally consented to treatment: Yes Patient verbally consented to billing insurance company: Yes Patient informed of any privacy concerns related to visit: Yes Minutes spent on Phone/Video with Pt.: 14 Results Reviewed Results Reviewed: Date of Service: 01/20/25 Procedure(s): FL cystogram Accession Number(s): [id number] cc: Madai Rhodes MD; Mady Meza NP~ Reason for Exam: L98.8 - Other specified disorders of the skin and subcutaneous tissue EXAMINATION: XR CYSTOGRAPHY CLINICAL INFORMATION: L98.8 - Other specified disorders of the skin and subcutaneous tissue ; follow-up vesico-intestinal fistula. COMPARISON: 01/08/2025, 12/29/2024. TECHNIQUE: Under direct fluoroscopic control, urinary bladder was instilled with 225 mL of Cystografin through the patient's existing Bowman catheter with balloon inflated. Images were obtained during contrast instillation and post drainage. FINDINGS: Bowman catheter balloon is located within the lumen of the urinary bladder. Contrast normally distends the urinary bladder, which has a grossly normal shape. The previously seen fistulous tract previously extending into bowel is again noted, however appears as a sinus tract, with no definite connection to the adjacent bowel structures at this time. Essentially it is now a blind-ending short sinus tract arising from the dome of the urinary bladder. There is no gross extravasation of contrast identified. The patient tolerated the procedure well with no immediate complication. FLUOROSCOPY TIME: 1 minute 13 seconds DOSE AREA PRODUCT: 1866 uGy-m2 (microgray-meter squared) 5 images acquired, and 7 cine captures acquired. FL/FL cystogram IMPRESSION: 1. Previously seen fistulous tract arising from the dome of the urinary bladder now appears as a blind-ending short sinus tract, consistent with partial healing. Currently there is no definitive connection to bowel structures, and no evidence of free contrast extravasation into Assessment & Plan Assessment & Plan (1) [place]-vesical fistula: Code(s): N32.1 - Vesicointestinal fistula Category: Medical Plan Plan 1. Colovesical Fistula - Continue catheterization for at least 10 more days to allow complete healing of the fistulous tract. - Schedule a repeat cystogram in 10 days 2. Bladder Spasm - Continue Vesicare as needed for bladder spasm management. 3. Infection Prevention - Continue Ciprofloxacin Patient Instructions: The patient had an opportunity to ask questions regarding treatment plan. The patient expressed understanding and agreement with the above treatment plan. The patient is aware they should contact our office by phone for worsening of their current condition or the appearance of new symptoms. Compliance is encouraged with any medications and followup testing that is ordered. It is a privilege to be allowed the opportunity to participate in the urologic care of your patient. If you have any questions or concerns regarding treatment for the above conditions please do not hesitate to contact me. The office telephone contact is [phone]. This note is constructed in part using voice recognition software. While every effort has been made to ensure accuracy ship engineer errors may have been included. Yours sincerely, Madai Rhodes MD Scribe Plan - Not visible on output: Patient was informed and verbally consented to the use of an ambient scribe for clinic note documentation during this visit. Coding Level of Care Code Tele Est Pt Level 4 (20679) Complex EM visit Add On G2211 Diagnoses [place]-vesical fistula N32.1
== END 2025-01-21 11:15 | disposition home or self-care (01) ==
LOC: HO.HUSH 10:14
PROVIDERS: PCP Nurse Practitioner; Visit Provider Urology
DX: N32.1 Vesicointestinal fistula (principal)
CPT/HCPCS: 98013

== ENCOUNTER 2025-02-01 10:09 | Outpatient (REF) | payer OTHER, SELFPAY ==
--- NOTE | ~2025-02-01 | FL_ITS ---
EXAMINATION: XR CYSTOGRAPHY CLINICAL INFORMATION: L98.8 - Other specified disorders of the skin and subcutaneous tissue COMPARISON: Last cystogram 01/20/2025 TECHNIQUE: Under direct fluoroscopy retrograde administration of Cystografin approximately 200 mL was performed through the balloon inflated Bowman's catheter. FINDINGS: The bladder is well distended with some slight lobulation seen along the superior margin. Previously seen nubbing along the superior margin of the bladder is present but no sinus tract visualized as was noted on the 01/20/2025 exam. FLUOROSCOPY TIME: 2 minute 52 seconds DOSE AREA PRODUCT: 3424 uGy-m2 (microgray-meter squared) FL/FL cystogram IMPRESSION: Previously seen sinus tract has resolved. There is however nothing along the superior margin of the bladder and mild lobulation along the left superior margin of bladder which is stable. No clear extravasation of contrast seen at this time. Electronically signed by: Chip Hopkins MD 02/01/2025 10:58 AM EDT
== END 2025-02-01 10:10 | disposition home or self-care (01) ==
LOC: HO.XRAY 10:09
PROVIDERS: PCP Nurse Practitioner; Visit Provider Urology
DX: L98.8 Other specified disorders of the skin and subcutaneous tissue (principal)
CPT/HCPCS: 51600; 74455; Q9958

== ENCOUNTER → 2025-02-01 10:11 | Outpatient (BNV) | payer OTHER, SELFPAY | PROVIDERS: PCP Nurse Practitioner; Visit Provider Radiology Diagnostic Radiology | DX: L98.8 Other specified disorders of the skin and subcutaneous tissue (principal) | CPT/HCPCS: 51600; 74455 ==

== ENCOUNTER 2025-02-04 14:59 | Outpatient (AMB) | payer OTHER, SELFPAY ==
[2025-02-04 15:01] VITALS: BMI 30.8
--- NOTE | 2025-02-04 15:01 | MHC.OFFVIS ---
Vital Signs 02/04/25 15:01 Height 6 ft Weight 227 lb BMI 30.8 Intake Visit Reasons: 1 month s/p sigmoid resection Intake Note: This patient presents for 1 month s/p sigmoid resection. Pt c/o; no complaints at this time. Mri Special Procedures Technologist Required: No Accompanied by: Spouse Allergies No Known Allergies Allergy (Verified 02/04/25 15:10) HPI HPI 1 month s/p sigmoid resection: Details: He is here for a follow up after a complicated surgery for sigmoid resection and end colostomy in view of the large diverticular abscess with stool. He says his stoma has been functioning well. He has good oral intake. He denies any problems with his stoma He feels well overall and has been starting to get active again. [facility] Medical History Colostomy in place Complicated urinary tract infection Abdominopelvic abscess Dysuria History of diverticulosis Fistula No known health problems Surgical History S/P colostomy Hx of colonoscopy No history of previous surgery Social History Household Members: Family Housing: House Do you presently have visiting nurse or other home services: No Patient Tobacco Use Status: Former Tobacco user e-Cigarette/Vaping Use: Never Used Advance Directives Date on File: 12/11/24 service: No Review of Systems Const Denies chills and Denies fever(s) Card Denies chest pain at rest Resp Denies cough GI Details: Colostomy working Physical Exam Vital Signs: BMI result Body Mass Index 30.8 Const General: comfortable and no acute distress GI Other: Colostomy functioning well, midline incisions well healed Palpation (GI): Soft to palpation, not firm and nontender Assessment & Plan Assessment & Plan (1) Colostomy in place: Code(s): Z93.3 - Colostomy status Category: Medical Plan: He continues to do well after sigmoid resection for a large diverticular abscess with a fistulous tract to the abscess. His stoma is functioning well. His incisions are well healed His Bowman catheter has been removed and is able to void freely without problems. I will see him again in 1 month. We will then schedule him for a colonoscopy to evaluate his colon prior to sitting for reversal. His was with him during the visit. Coding Level of Care Code Global (67410) Diagnoses Colostomy in place Z93.3
--- OUTSIDE RECORDS SUMMARY | 2025-02-04 18:52 | XMS_ITS | Encounter Summary ---
Author Organization [facility] Address [address] [place] [address] Phone Care Team Providers Care Tooling Specialist Name Role Phone Tr Shah MD Primary Care Provider [phone] Tr Shah MD Primary Care Provider [phone] Encounter Details Date Type Department Care Team (Late st Contact Info) Description 07/29/2017 Procedure Pass [facility], Ct Scan - [address] [address] Social History Tobacco Use Types Packs/Day Years [...] on filedocumented in this encounter Care Teams Tooling Specialist Relationship Specialty Start Date End Date Tr Shah MD PCP - General Family Medicine 02/13/22 12/08/24 Tr Shah MD [address] [place] [phone] [email or web address] PCP - General Family Medicine 12/09/24 documented as of this encounter Additional Source Comments The information contained in this document represents components of the legal health record. It is not the complete legal health record.[facility]
--- OUTSIDE RECORDS SUMMARY | 2025-02-04 18:52 | XMS_ITS | Clinical Summary ---
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 Not [...] (#1) 2024 04/30/2012 COVID-19 VACCINE (1 - 2024-2 6 season) 2024 SCREENING FOR DIABETES 02/15/2025 02/15/2022 BLOOD PRESSURE 06/11/2025 12/09/2024 SMOKING Hx and SMOKELESS TOBACCO SCREENING 12/09/2025 12/09/2024 Adult Td,Tdap Booster 10/09/2028 10/09/2018 , 07/09/2008 RSV VACCINE (1 - 1-dose 75+ series) 08/02/2043 HEPATITIS A VACCINES Aged Out No long [...] Special Requests None 12/09/2024 6:20 PM EDT [facility] Urine Culture >100,000 colony forming units per mL ESCHERICHIA COLI(A) 12/11/2024 8:55 AM EDT [facility] Urine (Urine) 12/09/2024 6:2 0 PM [...] LANDRY METHOD <=1: Susceptible Comment: Bri Baires [facility] MICROBIOLOGY - GENERAL ORDE ANA ROSA Final Result [facility] [address] [place] [address] * (ABNORMAL) Comprehensive metabolic panel (02/15/2022 5:31 AM EDT) SODIUM 139 133 - 146 mmol/L [facility] POTASSIUM 4.4 3.3 - 5.1 mmol/L [facility] CHLORIDE 102 96 - 108 mmol/L [facility] CO2 25 21 - 35 mmol/L [facility] BUN 17 6 - 19 mg/dL [facility] CREATININE 0.90 0.5 - 1.5 mg/dL [facility] GLUCOSE 95 70 - 99 mg/dL [facility] ALBUMIN 3.5(L) 3.9 - 4.8 g/dL [facility] TOTAL PROTEIN 7.2 6.5 - 8.0 g/dL [facility] CALCIUM 9.1 8.4 - 10.3 mg/dL [facility] ALKALINE PHOSPHATASE 60 39 - 117 U/L [facility] TOTAL BILIRUBIN 0.5 0.0 - 1.2 mg/dL [facility] AST 33 0 - 37 U/L [facility] ALT 39 0 - 40 U/L [facility] GLOBULIN 3.7 1 - 4.8 g/dL [facility] EGFR 102 >59 mL/min/1.7 3m2 [facility] Comment:Estimated glomerular filtration rate calculated using the CKD-EPI refit equation. ANION GAP 16 10 - 20 mmol/L [facility] Blood 02/15/2022 5:31 AM EDT 02/15/2022 5:48 AM EDT Rayne Kirkland DO, MPH LAB BLOOD ORDER SHAUN Final Result Performing Organization Address City/State/[facility] Co de Phone Number [facility] [address] [place] [address] from Last 3 Months or Most Recently Relevant to Health Maintenance [facility] CIGNA PPO [facility] [place] [address] [address] [address] HMO POS [facility] HMO POS CIGNA PPO [facility] HMO POS [facility] CIGNA PPO [facility] HMO POS CIGNA PPO [facility] HMO POS CIGNA PPO Advance Directives For more information, please contact: [phone] (9AM - 5PM [facility] [place] [facility], Saturday-Saturday) * Full Code (Latest Code Status on File) Date Activated Date Inactivated Comments 02/13/2022 5:49 PM Question Answer Comments Code Status Confirmed With: Patient Care Teams Relief Mate Relationship Specialty Start Date End Date Tr Shah MD [address] [place] [phone] [email or web address] PCP - General Family Medicine 12/09/24 Additional Source Comments The information contained in this document represents components of the legal health record. It is not the complete legal health record.[facility]
--- OUTSIDE RECORDS SUMMARY | 2025-02-04 18:52 | XMS_ITS | Encounter Summary ---
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 [employer] Not on file Not on f ile Not on file documented as of this encounter Functional Status * Calculated C-SSRS Risk Score (Lifetime/Recent) Answer Date of Assessment Author No Risk Indicated 02/13/2022 8:23 AM EDT Macy Verduzco RN * [place] Suicide Severity Rating Scale (Screener/Recent Self-Report) Question [...] on filedocumented in this encounter Care Teams Fisher Clam Relationship Specialty Start Date End Date Tr Shah MD [email or web address] PCP - General Family Medicine 02/13/22 12/08/24 Tr Shah MD [address] [place] [phone] [email or web address] PCP - General Family Medicine 12/09/24 documented as of this encounter Additional Source Comments The information contained in this document represents components of the legal health record. It is not the complete legal health record.[facility]
--- OUTSIDE RECORDS SUMMARY | 2025-02-04 18:52 | XMS_ITS | Encounter Summary ---
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 Not on f ile Not on file documented as of this encounter Functional Status * Calculated C-SSRS Risk Score (Lifetime/Recent) Answer Date of Assessment Author No Risk Indicated 02/13/2022 8:23 AM EDT Macy Verduzco RN * [place] Suicide Severity Rating Scale (Screener/Recent Self-Report) Question [...] on filedocumented in this encounter Care Teams Occupational Therapy Assist Relationship Specialty Start Date End Date Tr Shah MD [email or web address] PCP - General Family Medicine 02/13/22 12/08/24 Tr Shah MD [address] [place] [phone] [email or web address] PCP - General Family Medicine 12/09/24 documented as of this encounter Additional Source Comments The information contained in this document represents components of the legal health record. It is not the complete legal health record.[facility]
--- OUTSIDE RECORDS SUMMARY | 2025-02-04 18:52 | XMS_ITS | Encounter Summary ---
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 It is not the complete legal health record.[facility]
--- OUTSIDE RECORDS SUMMARY | 2025-02-04 18:52 | XMS_ITS | Encounter Summary ---
Author Organization [facility] Address [address] [place] [address] Phone Care Team Providers Care Hemstitcher Name Role Phone Tr Shah MD Primary Care Provider [phone] Tr Shah MD Primary Care Provider [phone] Encounter Details Date Type Department Care Team (Late st Contact Info) Description 07/29/2017 Ancillary Orders Virtual Department [address] [place] [address] Jasen Chavez MD [address] [place] [phone] [email or web address] Urinary tract infection without hematuria, site [...] sent to Dr. Chavez's service via the restaurant front manager on afternoon of dictation. TOTAL CTDIvol: [...] is sent toDr. Chavez's service via the restaurant front manager on afternoon of dictation. TOTAL CTDIvol: 59.0 mGy POS - [id number] Edited by: Yazmin Jimenes on 07/31/2017 1:43 PM Jasen Chavez MD IMG CT ABD/PELVIS Final Result documented in this encounter Visit Diagnoses Diagnosis Urinary tract infection without hematuria, site unspecified Urinary tract infection without hematuria, site unspecified documented in this encounter Care Teams Hemstitcher Relationship Specialty Start Date End Date Tr Shah MD [email or web address] PCP - General Family Medicine 02/13/22 12/08/24 Tr Shah MD [address] [place] [phone] [email or web address] PCP - General Family Medicine 12/09/24 documented as of this encounter Additional Source Comments The information contained in this document represents components of the legal health record. It is not the complete legal health record.[facility]
== END 2025-02-04 15:47 | disposition home or self-care (01) ==
LOC: HO.HGS 15:00
PROVIDERS: PCP Nurse Practitioner; Visit Provider Surgery
DX: Z93.3 Colostomy status (principal)
CPT/HCPCS: 99024

== ENCOUNTER 2025-03-04 13:08 | Outpatient (AMB) | payer OTHER, SELFPAY ==
--- NOTE | 2025-03-04 13:12 | MHC.OFFVIS ---
Vital Signs 03/04/25 13:16 Height 6 ft Weight 262 lb BMI 35.5 Intake Visit Reasons: 1 month s/p sigmoid resection Intake Note: This patient presents for one month s/p sigmoid resection. Pt c/o; no complaints at this time. Submersible Pilot Required: No Accompanied by: Spouse Allergies No Known Allergies Allergy (Verified 03/04/25 13:17) HPI HPI 1 month s/p sigmoid resection: Details: He is here for follow-up after sigmoid resection last December, for large diverticular abscess with severe disease of the sigmoid from diverticulitis. 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 He has been voiding well without any problems. His Bowman catheter has been removed last month. His colostomy has been functioning well [facility] Medical History Colostomy in place Complicated urinary tract infection Abdominopelvic abscess Dysuria History of diverticulosis Fistula No known health problems Surgical History S/P colostomy Hx of colonoscopy No history of previous surgery Social History Household Members: Family Housing: House Do you presently have visiting nurse or other home services: No Patient Tobacco Use Status: Former Tobacco user e-Cigarette/Vaping Use: Never Used Advance Directives Date on File: 12/11/24 service: No Review of Systems Const Denies chills and Denies fever(s) Card Denies chest pain at rest Resp Denies cough GI Details: Colostomy functioning Physical Exam Const General: comfortable and no acute distress Resp Effort & Inspection: normal respiratory effort GI Other: Incision well healed colostomy functioning well Palpation (GI): Soft to palpation and not firm Assessment & Plan Assessment & Plan (1) Colostomy in place: Code(s): Z93.3 - Colostomy status Category: Medical Plan: He is doing very well after sigmoid resection, excision of a large diverticular abscess cavity, and end colostomy for a colovesical fistula. I will see him next month to see how is doing and probably schedule him for a colonoscopy as this has colonoscopy was over 10 years ago. He understands the plan well. Coding Level of Care Code Global (55918) Diagnoses Colostomy in place Z93.3
[2025-03-04 13:16] VITALS: BMI 35.5
== END 2025-03-04 13:28 | disposition home or self-care (01) ==
LOC: HO.HGS 13:09
PROVIDERS: PCP Nurse Practitioner; Visit Provider Surgery
DX: Z93.3 Colostomy status (principal)
CPT/HCPCS: 99024